=== PATIENT | female | born 1945 | race Caucasian/White ===

== ENCOUNTER 2016-12-07 12:22 | Emergency (ER) | payer OTHER ==
[~2016-12-07] VITALS: Ht 170.2 cm; Wt 72.7 kg
[~2016-12-07 12:22] MED LIST: ASPEC81 PO; ATOR80TA PO; GLCSR500 PO; GLIP-197 PO; HYDCR1CL EXT; LEVO125T7 PO; LISI-461 PO; PRLSR20 PO; PROM25TA9 PO; SERT-234 PO; SITA100T3 PO; TRAM-10 PO; TRAZ50TA35 PO
[2016-12-07 12:28] VITALS: TEMP 37.2; Ht 170.2 cm; Wt 72.7 kg
[2016-12-07] MEDS ORDERED: LEVO125T72 PO (12:37)
[2016-12-07] MEDS ORDERED: METF-841 PO (12:37)
[2016-12-07] MEDS ORDERED: KETOROLAC TROMETHAMINE 30 MG/ML VIAL IV STA (12:39)
[2016-12-07] MEDS ORDERED: SODIUM CHLORIDE 0.9% 1000ML 500 ML IV STA (12:39)
[2016-12-07] MEDS ORDERED: ACETAMINOPHEN 500 MG TAB PO STA (12:44)
--- NOTE | 2016-12-07 12:53 | EMERGENCY ROOM VISIT NOTE ---
History Report prepared by [place]: Holley Gonzales Under the Supervision of: Dr. Duncan Cullen M.D. First contact with patient: 12:37 Chief Complaint: BACK PAIN Stated Complaint: BACK PAIN History of Present Illness The patient is a 71 year old female who presents to the Emergency Room with complaints of persistent left sided flank pain for the past 2 days. She was brought to the ED via EMS. She rates her discomfort as a 10/10 and notes movement worsens her pain. Tylenol provided minimal relief yesterday, but she has not taken anything for pain yet today. She denies any recent falls or injuries. She has never undergone surgery on her back and denies any personal history of kidney stones. She notes she does drink a lot of water and for the past 1 month, has experienced increased pressure in her bladder. She denies any dysuria or hematuria. She denies any recent fevers, nausea or vomiting. Source of History: patient Onset: 2 days [facility] Position: back (left sided flank) Symptom Intensity: 10/10 Timing: other (persistent) Modifying Factors (Worsening): movement Modifying Factors (Relieving): tylenol Associated Symptoms: + urinary symptoms (increased bladder pressure), No fevers, No nausea, No vomiting Note: The patient denies any hematuria or dysuria. Review of Systems See HPI for pertinent positives & negatives. A total of 10 systems reviewed and were otherwise negative. Past Medical & Surgical Medical Problems: (1) Benign hypertension (2) DM type 2 causing renal disease (3) Dyslipidemia (4) History of allergic asthma (5) Major depression (6) Papillary thyroid carcinoma (7) Patent foramen ovale (8) Syncope Surgical Problems: (1) H/O total shoulder replacement (2) H/O: hysterectomy (3) History of appendectomy (4) S/P thyroidectomy (5) S/p total knee replacement, bilateral Family History Diabetes mellitus MOTHER FH: CAD (coronary artery disease) FATHER Social History Smoking Status: Never Smoker Alcohol Use: none Drug Use: none Marital Status: Housing Status: lives alone Occupation Status: employed Current/Historical Medications Scheduled Aspirin (Aspirin EC Low Dose), 81 MG PO DAILY Atorvastatin Calcium (Lipitor), 80 MG PO DAILY Glipizide (Glipizide Er), 10 MG PO AMPM Levothyroxine Sodium (Synthroid), 125 MCG PO DAILY Lisinopril (Lisinopril), 10 MG PO DAILY Metformin HCl (Metformin HCl ER), 1,000 MG PO BIDM Omeprazole (Prilosec), 20 MG PO DAILY Sertraline (Zoloft), 150 MG PO DAILY Sitagliptin Phosphate (Januvia), 100 MG PO DAILY Scheduled PRN Hydrocortisone 1% (Hydrocortisone 1%), 1 APPLN EXT TID PRN for rash Promethazine Hcl (Phenergan), 25 MG PO Q6 PRN for Nausea Trazodone Hcl (Trazodone), 50-100 MG PO HS PRN for Sleep Allergies Coded Allergies: No Known Allergies (Verified , 12/07/16) Physical Exam Vital Signs Date Time Temp Pulse Resp B/P (MAP) Pulse Ox O2 Delivery O2 Flow Rate FiO2 12/07/16 16:09 54 18 159/55 96 Room Air 12/07/16 14:35 50 18 145/74 95 Room Air 12/07/16 12:28 37.2 53 18 161/54 99 Room Air Physical Exam GENERAL: Patient is in no acute distress. HEENT: No acute trauma, normocephalic atraumatic, mucous membranes moist, no nasal congestion, no scleral icterus. NECK: No stridor, no adenopathy, no meningismus, trachea is midline. LUNGS: Clear to auscultation bilaterally, no wheeze, no rhonchi, breath sounds equal. HEART: 2/6 systolic murmur with bradycardic rate, normal rhythm. ABDOMEN: Soft, tender primarily in the epigastric region, but mild diffuse tenderness also present, bowel sounds positive, no hernias, no peritonitis. EXTREMITIES: No cyanosis or edema, full range of motion of all the joints without pain or difficulty, no signs for acute trauma. BACK: Pain in the left flank and left lower back with movement and palpation, no rash. NEUROLOGIC: Oriented x 3, no acute motor or sensory deficits, no focal weakness. SKIN: No rash, no jaundice, no diaphoresis. Medical Decision & Procedures ER Provider Diagnostic Interpretation: Radiology results as stated below per my review and radiologist interpretation: LUMBAR SPINE CT CT DOSE: HISTORY: Pain reformat abd/pelvis ct TECHNIQUE: Multiaxial CT images of the lumbar spine were performed and reformatted in the sagittal and coronal plane without the use of contrast. COMPARISON: 05/29/2016 FINDINGS: Vertebral bodies stature is unremarkable throughout. There is significant degenerative vertebral this changes L5-S1. Vacuum disc is present. Based on the sagittal reformatted images is study is similar as compared to the prior exam. Posterior disc herniation L5-S1 with partial peripheral calcification and or osteophytic reaction is unchanged. Similar but less prominent findings are seen with multifactorial narrowing of the spinal canal at L4-L5. The remaining disc space levels show no major compromise the spinal canal. There is slight disc bulges at all additional levels with minimal posterior osteophytic reaction. IMPRESSION: 1. Severe degenerative intervertebral this changes throughout with no major change compared to the prior study of 2016. 2. Narrowing of the spinal canal at L5-S1 and to a lesser extent L4-L5 similar to the prior study. 3. No evidence for new interval or progressive process as compared to the prior exam. Electronically signed by: Carmelo Kwong M.D. 12/07/2016 1:[address] OF THE ABDOMEN AND PELVIS WITHOUT CONTRAST, STONE PROTOCOL CLINICAL HISTORY: Left flank pain and hematuria. COMPARISON STUDY: CT of the abdomen April 22, 2015. TECHNIQUE: Helical axial images of the abdomen and pelvis were obtained without IV or oral contrast according to renal stone protocol. FINDINGS: No renal, ureteral or bladder calculi are present. There is no hydronephrosis or hydroureter. Unenhanced images of liver, spleen, adrenal glands and pancreas are normal. There is no evidence for a bowel obstruction. There are colonic diverticula without evidence for acute diverticulitis. The appendix is normal. There is no abscess or lymphadenopathy. The lumbar spine will be reported separately. IMPRESSION: 1. No urinary calculi or hydronephrosis. 2. No acute process within the abdomen or pelvis on unenhanced exam. Electronically signed by: Anders Reyna M.D. 12/07/2016 1:38 PM Laboratory Results 12/07/16 13:05 Red Blood Count 4.68, Mean Corpuscular Volume 82.9, Mean Corpuscular Hemoglobin 27.1, Mean Corpuscular Hemoglobin Concent 32.7, Mean Platelet Volume 10.4, Neutrophils (%) (Auto) 71.4, Lymphocytes (%) (Auto) 19.6, Monocytes (%) (Auto) 7.5, Eosinophils (%) (Auto) 0.8, Basophils (%) (Auto) 0.5, Neutrophils # (Auto) 4.56, Lymphocytes # (Auto) 1.25, Monocytes # (Auto) 0.48, Eosinophils # (Auto) 0.05, Basophils # (Auto) 0.03 12/07/16 13:05 Test 12/07/16 12:40 12/07/16 13:05 12/07/16 17:05 Urine Color YELLOW Urine Appearance CLEAR (CLEAR) Urine pH 5.0 (4.5-7.5) Urine Specific [place] 1.038 (1.000-1.030) Urine Protein NEG (NEG) Urine Glucose (UA) 3+ (NEG) Urine Ketones NEG (NEG) Urine Occult Blood NEG (NEG) Urine Nitrite NEG (NEG) Urine Bilirubin NEG (NEG) Urine Urobilinogen NEG (NEG) Urine Leukocyte Esterase NEG (NEG) White Blood Count 6.38 K/uL (4.8-10.8) Red Blood Count 4.68 M/uL (4.2-5.4) Hemoglobin 12.7 g/dL (12.0-16.0) Hematocrit 38.8 % (37-47) Mean Corpuscular Volume 82.9 fL (80-100) Mean Corpuscular Hemoglobin 27.1 pg (25-34) Mean Corpuscular Hemoglobin Concent 32.7 g/dl (32-36) Platelet Count 198 K/uL (130-400) Mean Platelet Volume 10.4 fL (7.4-10.4) Neutrophils (%) (Auto) 71.4 % Lymphocytes (%) (Auto) 19.6 % Monocytes (%) (Auto) 7.5 % Eosinophils (%) (Auto) 0.8 % Basophils (%) (Auto) 0.5 % Neutrophils # (Auto) 4.56 K/uL (1.4-6.5) Lymphocytes # (Auto) 1.25 K/uL (1.2-3.4) Monocytes # (Auto) 0.48 K/uL (0.11-0.59) Eosinophils # (Auto) 0.05 K/uL (0-0.5) Basophils # (Auto) 0.03 K/uL (0-0.2) RDW Standard Deviation 42.9 fL (36.4-46.3) RDW Coefficient of Variation 14.2 % (11.5-14.5) Immature Granulocyte % (Auto) 0.2 % Immature Granulocyte # (Auto) 0.01 K/uL (0.00-0.02) Anion Gap 11.0 mmol/L (3-11) Est Creatinine Clear Calc Drug Dose 38.6 ml/min Estimated GFR () 47.8 Estimated GFR (Non- 41.2 BUN/Creatinine Ratio 8.7 (10-20) Calcium Level 9.3 mg/dl (8.5-10.1) Lipase 260 U/L (73-393) Beta-Hydroxybutyric Acid 1.55 mg/dL (0.2-2.81) Bedside Glucose 216 mg/dl (70-90) Laboratory results reviewed by me. Medications Administered Medications (Trade) Dose Ordered Sig/Adin Route Start Time Stop Time Status Last Admin Dose Admin Sodium Chloride 500 ml @ 999 mls/hr Q31M STAT IV 12/07/16 12:39 12/07/16 13:09 DC 12/07/16 12:39 999 MLS/HR Ketorolac Tromethamine (Toradol Inj) 30 mg NOW STAT IV 12/07/16 12:39 12/07/16 12:41 DC 12/07/16 13:09 30 MG Acetaminophen (Tylenol Tab) 1,000 mg NOW STAT PO 12/07/16 12:44 12/07/16 12:45 DC 12/07/16 12:44 1,000 MG Insulin Human Regular (novoLIN-R U-100 PER UNIT) 10 units NOW STAT IV 12/07/16 13:56 12/07/16 13:57 DC 12/07/16 13:56 10 UNITS Sodium Chloride 500 ml @ 999 mls/hr Q31M STAT IV 12/07/16 14:54 12/07/16 15:24 DC 12/07/16 14:54 999 MLS/HR Insulin Human Regular (novoLIN-R U-100 PER UNIT) 10 units NOW STAT IV 12/07/16 15:14 12/07/16 15:15 DC 12/07/16 15:14 10 UNITS Sodium Chloride 500 ml @ 999 mls/hr Q31M STAT IV 12/07/16 16:12 12/07/16 16:42 DC 12/07/16 16:21 999 MLS/HR Insulin Human Regular (novoLIN-R U-100 PER UNIT) 10 units NOW STAT IV 12/07/16 16:12 12/07/16 16:14 DC 12/07/16 16:19 10 UNITS ED Course 1242: The patient was evaluated in room B7. A complete history and physical exam was performed. 1239: Toradol 30 mg IV, NSS 500 ml @ 999 mls/hr IV. 1244: Acetaminophen 1000 mg PO. 1356: Novolin-R U-100 per unit, 10 units IV. 1452: I reevaluated the patient. She is feeling better but her BSG is elevated. 1454: NSS 500 ml @ 999 mls/hr IV. 1514: Novolin-R U-100 per unit, 10 units IV. 1612: Novolin-R U-100 per unit, 10 units IV, NSS 500 ml @ 999 mls/hr IV. 1710: I reevaluated the patient. She is feeling better. I discussed her results and discharge instructions and she verbalized complete understanding and agreement. Medical Decision Medication Reconciliation: I attest that I have personally reviewed the patient' s current medication list. Blood Pressure Screening: Patient was found to have a mildly elevated blood pressure and will be referred to her primary care doctor's office for further evaluation. The differential diagnoses considered include renal colic, shingles, musculoskeletal pain, nerve impingement, fracture, renal failure, pyelonephritis , UTI and pancreatitis. There is no leukocytosis or concerning anemia. Blood sugar was in the 600 range. No kidney failure. Urinalysis showed glucose, no infection.. No evidence for pancreatitis. Lumbar spine CT showed arthritis and some spinal canal narrowing, no change compared to previous studies. No fracture seen. Abdominal and pelvis CT showed no acute process, there was no evidence for any ureteral stone or for diverticulitis. On exam, the patient was not febrile or toxic. Her left back and flank pain worsened with any movement and with palpation. The patient was given oral Tylenol, IV Toradol. She received IV saline and IV insulin. She required a few doses of insulin IV and a few boluses of IV saline. Her blood sugar is now in the 200 range. The patient feels improved and does not want to stay in the hospital. She feels comfortable with discharge. I have encouraged her to see her doctor in a few days for a blood pressure and glucose recheck. The pain in the lower back and left flank seems musculoskeletal. Massage, heat, Tylenol were suggested. If she notices a rash, she can be re-seen in the ER or by her doctor's office. Impression Primary Impression: Left flank pain Additional Impressions: Hyperglycemia Lower back pain Scribe Attestation The scribe's documentation has been prepared under my direction and personally reviewed by me in its entirety. I confirm that the note above accurately reflects all work, treatment, procedures, and medical decision making performed by me. Departure Information Dispostion Home / Self-Care Referrals Carmelo Cole M.D. (PCP) Patient Instructions My [facility] Additional Instructions heat may help the back tylenol for pain massage could be helpful watch for a shingles rash as we discussed see ayush romero in a few days for a sugar recheck and blood pressure recheck return if worsening Problem Qualifiers
[2016-12-07 13:06] LABS: URINE APPEARANCE CLEAR (CLEAR); URINE BILIRUBIN NEG (NEG); URINE COLOR YELLOW; URINE NITRITE NEG (NEG); URINE SPECIFIC GRAVITY 1.038 (1.000-1.030); UROBILINOGEN NEG (NEG); ZZURINE CULT IF INDIC CATH NO
[2016-12-07 13:19] LABS: MANUAL MICROSCOPIC REQUIRED? NO; REVIEW REQ? NO
[2016-12-07 13:29] LABS: BASO % 0.5 %; BASO ABS # 0.03 K/uL (0-0.2); COMPLETE YES; EOS % 0.8 %; HEMATOCRIT 38.8 % (37-47); IG% 0.2 %; LYMPH % 19.6 %; LYMPH ABS # 1.25 K/uL (1.2-3.4); MEAN CELL VOLUME 82.9 fL (80-100); MEAN CORPUSCULAR HEMOGLOBIN 27.1 pg (25-34); MEAN CORPUSCULAR HGB CONC 32.7 g/dl (32-36); MEAN PLATELET VOLUME 10.4 fL (7.4-10.4); MONO % 7.5 %; NEUT % 71.4 %; PLATELET COUNT 198 K/uL (130-400); RED BLOOD COUNT 4.68 M/uL (4.2-5.4); WHITE BLOOD COUNT 6.38 K/uL (4.8-10.8)
--- NOTE | 2016-12-07 13:39 | DIAGNOSTIC IMAGING REPORT ---
LUMBAR SPINE CT CT DOSE: HISTORY: Pain reformat abd/pelvis ct TECHNIQUE: Multiaxial CT images of the lumbar spine were performed and reformatted in the sagittal and coronal plane without the use of contrast. COMPARISON: 05/29/2016 FINDINGS: Vertebral bodies stature is unremarkable throughout. There is significant degenerative vertebral this changes L5-S1. Vacuum disc is present. Based on the sagittal reformatted images is study is similar as compared to the prior exam. Posterior disc herniation L5-S1 with partial peripheral calcification and or osteophytic reaction is unchanged. Similar but less prominent findings are seen with multifactorial narrowing of the spinal canal at L4-L5. The remaining disc space levels show no major compromise the spinal canal. There is slight disc bulges at all additional levels with minimal posterior osteophytic reaction. IMPRESSION: 1. Severe degenerative intervertebral this changes throughout with no major change compared to the prior study of 2015. 2. Narrowing of the spinal canal at L5-S1 and to a lesser extent L4-L5 similar to the prior study. 3. No evidence for new interval or progressive process as compared to the prior exam. Electronically signed by: Carmelo Kwong M.D. 12/07/2016 1:38 PM Dictated Date/Time: 12/07/2016 1:34 PM
--- NOTE | 2016-12-07 13:39 | DIAGNOSTIC IMAGING REPORT ---
CT OF THE ABDOMEN AND PELVIS WITHOUT CONTRAST, STONE PROTOCOL CLINICAL HISTORY: Left flank pain and hematuria. COMPARISON STUDY: CT of the abdomen April 22, 2015. TECHNIQUE: Helical axial images of the abdomen and pelvis were obtained without IV or oral contrast according to renal stone protocol. FINDINGS: No renal, ureteral or bladder calculi are present. There is no hydronephrosis or hydroureter. Unenhanced images of liver, spleen, adrenal glands and pancreas are normal. There is no evidence for a bowel obstruction. There are colonic diverticula without evidence for acute diverticulitis. The appendix is normal. There is no abscess or lymphadenopathy. The lumbar spine will be reported separately. IMPRESSION: 1. No urinary calculi or hydronephrosis. 2. No acute process within the abdomen or pelvis on unenhanced exam. Electronically signed by: Anders Reyna M.D. 12/07/2016 1:38 PM Dictated Date/Time: 12/07/2016 1:30 PM
[2016-12-07 13:54] LABS: BUN/CREATININE RATIO 8.7 (10-20); CREATININE 1.3 mg/dl (0.60-1.20); POTASSIUM 3.6 mmol/L (3.5-5.1)
[2016-12-07] MEDS ORDERED: NovoLIN-R INSULIN PER UNIT CHARGE IV STA ×3 (13:56→16:12)
[2016-12-07 14:13] LABS: BETA-HYDROXYBUTYRATE 1.55 mg/dL (0.2-2.81)
[2016-12-07] MEDS ORDERED: SODIUM CHLORIDE 0.9% 500ML 500 ML IV STA ×2 (14:54→16:12)
[2016-12-07 17:06] LABS: CALCIUM 9.3 mg/dl (8.5-10.1)
[2016-12-07 19:24] VITALS: BP 159/56; PULSE 63; O2SAT 95
[2017-01-16] MEDS ORDERED: INSDGIPEN SC (13:13)
== END 2016-12-07 19:24 | disposition home or self-care (01) ==
LOC: EDBD 12:22 → C.EDB 12:23
DX: R10.9 Unspecified abdominal pain (principal); E11.65 Type 2 diabetes mellitus with hyperglycemia; M54.5 Low back pain; I10 Essential (primary) hypertension; E78.5 Hyperlipidemia, unspecified; F32.9 Major depressive disorder, single episode, unspecified; Z85.850 Personal history of malignant neoplasm of thyroid; Z83.3 Family history of diabetes mellitus; Z82.49 Family history of ischemic heart disease and other diseases of the circulatory system; Z79.82 Long term (current) use of aspirin; Z79.899 Other long term (current) drug therapy

== ENCOUNTER 2017-01-14 09:07 | Inpatient (IN) | payer OTHER ==
[~2017-01-14] VITALS: Ht 167.6 cm; Wt 66.1 kg
[~2017-01-14 09:07] MED LIST changes: -GLCSR500 PO; -LEVO125T7 PO; +LEVO125T72 PO; +METF-841 PO; -TRAM-10 PO
[2017-01-14] MEDS ORDERED: ASPIRIN 81 MG CHEW PO STA (09:35)
--- NOTE | 2017-01-14 09:56 | DIAGNOSTIC IMAGING REPORT ---
CHEST ONE VIEW PORTABLE CLINICAL HISTORY: chest pain dyspnea COMPARISON STUDY: 04/22/2015 FINDINGS: The bones soft tissues and hemidiaphragms are normal. The cardiomediastinal silhouette is normal. The lungs are clear. The pulmonary vasculature is normal. IMPRESSION: Negative chest. The above report was generated using voice recognition software. It may contain grammatical, syntax or spelling errors. Electronically signed by: Carmelo Kwong M.D. 01/14/2017 9:55 AM Dictated Date/Time: 01/14/2017 9:55 AM
--- NOTE | 2017-01-14 10:03 | EMERGENCY ROOM VISIT NOTE ---
History Report prepared by Cheryl: Cindi Babb Under the Supervision of: Dr. Anton Sue M.D. First contact with patient: 09:30 Chief Complaint: CHEST PAIN Stated Complaint: NERVOUS, HEADACHE, CHEST PAIN Nursing Triage Summary: Pt reports h/a, dizziness, substernal cp x 2 days. senior staff psychologist present states, "I stopped to check on her. Staff at [employer] where she works saw her pale and sweaty." History of Present Illness The patient is a 71 year old female who presents to the Emergency Room with complaints of constant substernal chest pain that started 3 weeks ago. The pain worsened over the last 2 days. She states that it feels like "someone is pushing on her chest." She states that last night her discomfort from the pain was an 8/10 in severity but currently it is only a 2-3/10 in severity. The patient participates in [employer] and she has a job at [employer]. The patient's men's golf coach is at bedside. Her men's golf coach states that when she got to [employer] this morning the staff informed her that the patient appeared pale and sweaty. The patient's men's golf coach checked on her around 0830 and she still appeared pale and sweaty. The patient proceeded working and as she was pushing a cart to the bathroom she stated that she needed to sit down. The patient sat down and told her men's golf coach that she needed to go to the ED. The patient drank half of a glass of orange juice before coming into the ED. The patient is also experiencing dizziness and shortness of breath. She states that she is urinating and moving her bowels without difficulty. The patient states that she has rheumatic fever when she was 6 but she denies any history of MIs or congestive heart failure. The patient did not take any medication for the pain and she did not take any aspirin this morning. The patient has diabetes. Source of History: patient, other (men's golf coach) Onset: 3 weeks ago Position: chest (substernal) Symptom Intensity: 8/10 last night, 2-3/10 currently Timing: constant, worsening Associated Symptoms: + SOB Note: dizziness, pallor, sweating Review of Systems All systems have been listed, reviewed, and are negative other than those previously mentioned. Please see Additional Medical History Sheet. Past Medical & Surgical Medical Problems: (1) Benign hypertension (2) Chest pain (3) DM type 2 causing renal disease (4) Dyslipidemia (5) History of allergic asthma (6) Hyperglycemia due to type 2 diabetes mellitus (7) Major depression (8) Papillary thyroid carcinoma (9) Patent foramen ovale (10) Syncope Surgical Problems: (1) H/O total shoulder replacement (2) H/O: hysterectomy (3) History of appendectomy (4) S/P thyroidectomy (5) S/p total knee replacement, bilateral Family History Diabetes mellitus MOTHER FH: CAD (coronary artery disease) FATHER Social History Smoking Status: Never Smoker Alcohol Use: none Drug Use: none Marital Status: Housing Status: lives alone Occupation Status: employed Current/Historical Medications Scheduled Aspirin (Aspirin EC Low Dose), 81 MG PO DAILY Atorvastatin Calcium (Lipitor), 80 MG PO DAILY Glipizide (Glipizide Er), 10 MG PO AMPM Levothyroxine Sodium (Synthroid), 125 MCG PO DAILY Lisinopril (Lisinopril), 10 MG PO DAILY Metformin HCl (Metformin HCl ER), 1,000 MG PO BIDM Omeprazole (Prilosec), 20 MG PO DAILY Sertraline (Zoloft), 150 MG PO DAILY Sitagliptin Phosphate (Januvia), 100 MG PO DAILY Scheduled PRN Hydrocortisone 1% (Hydrocortisone 1%), 1 APPLN EXT TID PRN for rash Promethazine Hcl (Phenergan), 25 MG PO Q6 PRN for Nausea Trazodone Hcl (Trazodone), 50-100 MG PO HS PRN for Sleep Allergies Coded Allergies: No Known Allergies (Verified , 12/07/16) Physical Exam Vital Signs Date Time Temp Pulse Resp B/P (MAP) Pulse Ox O2 Delivery O2 Flow Rate FiO2 01/14/17 12:05 53 16 169/76 100 Room Air 01/14/17 11:21 54 16 183/66 97 Room Air 01/14/17 09:59 62 18 166/62 99 Room Air 01/14/17 09:25 65 01/14/17 09:23 97 Room Air 01/14/17 09:21 97 Room Air 01/14/17 09:12 36.4 85 18 155/73 96 Room Air Physical Exam GENERAL: Patient appears to be in minimal distress. Patient awake, alert, oriented x 3. Patient follows commands. Patient does not appear toxic. Patient is adequately hydrated and well-nourished. SKIN: No erythema, pallor, cyanosis or rash HEENT: Normal head, pupils equal, reactive to light and accommodation. Ears normal. Oral cavity and posterior pharynx appear normal. Neck: Without adenopathy, no neck vein distention. LUNGS: Clear to auscultation. No wheezes, no rales, no rhonchi. HEART: Grade 2/6 systolic murmur. No gallops. No rubs ABDOMEN: No masses, no rebound, no hepatomegaly or splenomegaly. EXTREMITIES: No signs of trauma. No pedal or pretibial edema. No calf or thigh tenderness. NEUROLOGIC: Cranial nerves II-XII within normal limits. No gross motor sensory function deficits. Medical Decision & Procedures ER Provider Diagnostic Interpretation: Radiology results as stated below per my review and radiologist interpretation: CHEST ONE VIEW PORTABLE FINDINGS: The bones soft tissues and hemidiaphragms are normal. The cardiomediastinal silhouette is normal. The lungs are clear. The pulmonary vasculature is normal. IMPRESSION: Negative chest. The above report was generated using voice recognition software. It may contain grammatical, syntax or spelling errors. Electronically signed by: Carmelo Kwong M.D. 01/14/2017 9:55 AM Dictated Date/Time: 01/14/2017 9:55 AM Laboratory Results 01/14/17 09:44 Test 01/14/17 09:44 01/14/17 11:29 Red Blood Count 4.82 M/uL (4.2-5.4) Mean Corpuscular Volume 81.7 fL (80-100) Mean Corpuscular Hemoglobin 27.4 pg (25-34) Mean Corpuscular Hemoglobin Concent 33.5 g/dl (32-36) Beta-Hydroxybutyric Acid 8.47 mg/dL (0.2-2.81) Bedside Troponin I < 0.030 ng/ml (0-0.045) Laboratory results as stated above per my review. Medications Administered Medications (Trade) Dose Ordered Sig/Adin Route Start Time Stop Time Status Last Admin Dose Admin Aspirin (Aspirin Chew) 325 mg NOW STAT PO 01/14/17 09:35 01/14/17 09:37 DC 01/14/17 10:18 324 MG Insulin Human Regular (novoLIN-R U-100 PER UNIT) 10 units NOW STAT IV 01/14/17 10:59 01/14/17 11:02 DC 01/14/17 11:10 10 UNITS Sodium Chloride 2,000 ml @ 1,000 mls/hr Q2H ONCE IV 01/14/17 11:00 01/14/17 12:59 DC 01/14/17 11:10 1,000 MLS/HR ECG Indication: chest pain Rate (beats per minute): 67 Rhythm: normal sinus Findings: nonspecific-ST abn Comparison ECG Date: 05/29/2016 Change: slightly more St depressions in V4, V5, and V6 ED Course 0930: Past medical records reviewed. The patient was evaluated in room A2. A complete history and physical examination was performed. 0935: Ordered Aspirin 325 mg PO 1033: The nurse informed me that the patient's serum glucose was recorded to be 848 by the machine. 1042: The nurse performed a POC BSG at bedside to ensure the serum reading is correct. 1059: Ordered Insulin Human Regular 10 units IV 1100: Ordered Sodium Chloride 2000 ml @ 1000 mls/hr IV 1106: The patient's BSG on the bedside monitor was too high to count which is consistent with the serum level. 1132: Upon reevaluation, the patient is resting comfortably.I discussed today's findings with her. She verbalized agreement of the treatment plan. The patient will be evaluated for further management. 1139: [facility] the [facility] The patient will be evaluated for further management. Medical Decision I considered multiple diagnoses including myocardial infarction, chest wall pain , pericarditis, myocarditis, aortic emergencies, pulmonary embolism, congestive heart failure, GI causes, and other significant cardiopulmonary disorders. The patient arrived here complaining of precordial chest pain which is been bothering her for greater than 1 month. She states that the pain is worse with past 2 days. The patient is diabetic but takes only oral agents. Multiple labs , EKG and imaging were all obtained. The patient has slight ST depressions in V4-V6. Troponin is not elevated. Blood sugar came back markedly elevated. Patient was started on IV fluids and insulin. I discussed care with the patient , the gift shop clerk and the hospitalist. The patient will need further hydration and insulin. Additional cardiopulmonary work up will be required. Medication Reconcilliation Current Medication List: was personally reviewed by me Blood Pressure Screening Patient's blood pressure: Elevated blood pressure Blood pressure disposition: Referred to PCP Consults Time Called: 1138 Consulting Physician: Dr. Verónica Sparks Returned Call: 1139 Discussed the patient's case with Dr. Sanches of the [facility] Hospitalist Service. The patient will be evaluated for further management. Impression Primary Impression: DKA (diabetic ketoacidoses) Additional Impressions: Precordial chest pain Hyponatremia Scribe Attestation The scribe's documentation has been prepared under my direction and personally reviewed by me in its entirety. I confirm that the note above accurately reflects all work, treatment, procedures, and medical decision making performed by me. Departure Information Dispostion Being Evaluated By Hospitalist Referrals Carmelo Cole M.D. (PCP) Patient Instructions My [facility] Problem Qualifiers Primary Impression: DKA (diabetic ketoacidoses) Diabetes mellitus type: type 2 Diabetes mellitus complication detail: without coma Qualified Codes: E13.10 - Other specified diabetes mellitus with ketoacidosis without coma
[2017-01-14 10:29] LABS: BLOOD UREA NITROGEN 24 mg/dl (7-18); BUN/CREATININE RATIO 15.2 (10-20); CALCIUM 9.3 mg/dl (8.5-10.1); CARBON DIOXIDE 28 mmol/L (21-32); CHLORIDE 88 mmol/L (98-107); GLUCOSE 848 mg/dl (70-99); SODIUM 126 mmol/L (136-145)
[2017-01-14 10:32] LABS: HEMATOCRIT 39.4 % (37-47); MEAN CELL VOLUME 81.7 fL (80-100); MEAN CORPUSCULAR HEMOGLOBIN 27.4 pg (25-34); MEAN CORPUSCULAR HGB CONC 33.5 g/dl (32-36); PLATELET COUNT 200 K/uL (130-400); RED BLOOD COUNT 4.82 M/uL (4.2-5.4); WHITE BLOOD COUNT 5.24 K/uL (4.8-10.8)
[2017-01-14 10:45] LABS: BETA-HYDROXYBUTYRATE 8.47 mg/dL (0.2-2.81)
[2017-01-14] MEDS ORDERED: IBUP-103 PO (10:54)
[2017-01-14] MEDS ORDERED: NovoLIN-R INSULIN PER UNIT CHARGE IV STA (10:59)
[2017-01-14] MEDS ORDERED: SODIUM CHLORIDE 0.9% 1000ML 2,000 ML IV ONE (11:00)
[2017-01-14] MEDS ORDERED: GLUCOSE 10 TABS/TUBE PO PRN ×2 (12:45→13:15)
[2017-01-14] MEDS ORDERED: GLUCAGON FOR INJ 1 MG VIAL SQ PRN ×2 (12:45→13:15)
[2017-01-14] MEDS ORDERED: SODIUM CHLORIDE 0.9% 1000ML 1,000 ML IV SCH (12:45)
[2017-01-14] MEDS ORDERED: GLUCOSE 40% GEL 15 GM TUBE PO PRN ×2 (12:45→13:15)
[2017-01-14] MEDS ORDERED: DEXTROSE 50% 50 ML SYR IV PRN ×2 (12:45→13:15)
[2017-01-14] MEDS ORDERED: PROMETHAZINE HCL 25 MG TAB PO PRN (13:00)
[2017-01-14] MEDS ORDERED: PHARMACY GLYCEMIC MGMT CONSULT PRN (13:26)
[2017-01-14 13:30] VITALS: BP 161/72; PULSE 54; TEMP 37.2; O2SAT 99; BMI 23.2
--- NOTE | 2017-01-14 13:43 | History and Physical ---
History & Physical Date & Time of Service: Jan 14, 2017 at 13:13 Chief Complaint: Nervous, Headache, Chest Pain Primary Care Physician: Carmelo Cole M.D. History of Present Illness Source: patient, family, clinic records, hospital records 71 yo Female with PMH DM type 2, Hypothyroidism, HTN, Major depression was brought to the ER for from work for Chest pain. Pt said that she has been having pressure like chest pain for the last 3 weeks. She said that in the last 2 days the chest pain got worst. She said that she was at work today feeling weak, dizzy, SOB and pale. Pt described the chest pain like pressure like and feels like someone sitting on her chest, non radiating, worsening when she lies down and alleviated when sitting up, grade 3/10. Pt is very active. she lives alone and does not know her medications. she said that she is only taking 1 med for her DM when she has 3 meds for DM on her med list. As per niece pt has someone that comes once a week to arrange her meds for her and niece said that sometimes take wrong med. She does not check her BS. Her niece said that few months ago she passed out because of low blood sugar. Pt glucose on BMP was 845 today. Currently pt said that she is feeling a little better. Denies any SOB, palpitation, numbness, urinary symptoms, diarrhea and nausea. 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 Status: Chronic (2) H/O: hysterectomy Status: Resolved (3) History of appendectomy Status: Resolved (4) S/P thyroidectomy Status: Chronic (5) S/p total knee replacement, bilateral Status: Chronic Family History Diabetes mellitus MOTHER FH: CAD (coronary artery disease) FATHER Social History Smoking Status: Never Smoker Drug Use: none Marital Status: Housing status: lives alone, other Occupational Status: employed Immunizations History of Influenza Vaccine: Yes Influenza Vaccine Date: Apr 22, 2012 History of Tetanus Vaccine?: Yes Tetanus Immunization Date: Feb 20, 2007 History of Pneumococcal: No Pneumococcal Date: Apr 27, 2008 History of Hepatitis B Vaccine: No Multi-Drug Resistant Organisms History of MDRO: No Allergies Coded Allergies: No Known Allergies (Verified , 12/07/16) Home Medications Scheduled Aspirin (Aspirin EC Low Dose), 81 MG PO DAILY Atorvastatin Calcium (Lipitor), 80 MG PO DAILY Glipizide (Glipizide Er), 10 MG PO AMPM Levothyroxine Sodium (Synthroid), 125 MCG PO DAILY Lisinopril (Lisinopril), 10 MG PO DAILY Metformin HCl (Metformin HCl ER), 1,000 MG PO BIDM Omeprazole (Prilosec), 20 MG PO DAILY Sertraline (Zoloft), 150 MG PO DAILY Sitagliptin Phosphate (Januvia), 100 MG PO DAILY Scheduled PRN Hydrocortisone 1% (Hydrocortisone 1%), 1 APPLN EXT TID PRN for rash Promethazine Hcl (Phenergan), 25 MG PO Q6 PRN for Nausea Trazodone Hcl (Trazodone), 50-100 MG PO HS PRN for Sleep Review of Systems Constitutional: + sweats, No fever, No chills Eyes: No worsening of vision, No redness ENT: No hearing loss, No sore throat Respiratory: No cough, No sputum, No wheezing Cardiovascular: + chest pain, No claudication, No palpitations Abdomen: No pain, No nausea, No vomiting Musculoskeletal: + joint pain, No calf pain Genitourinary - Female: No dysuria, No hematuria Neurologic: + numbness/tingling Psychiatric: No substance abuse Endocrine: No excessive thirst Hematologic / Lymphatic: No night sweats Integumentary: No rash, No itch Physical Exam Vital Signs Date Time Temp Pulse Resp B/P (MAP) Pulse Ox O2 Delivery O2 Flow Rate FiO2 01/14/17 12:46 53 16 159/68 98 Room Air 01/14/17 12:42 59 01/14/17 12:05 53 16 169/76 100 Room Air 01/14/17 11:21 54 16 183/66 97 Room Air 01/14/17 09:59 62 18 166/62 99 Room Air 01/14/17 09:25 65 01/14/17 09:23 97 Room Air 01/14/17 09:21 97 Room Air 01/14/17 09:12 36.4 85 18 155/73 96 Room Air General Appearance: WD/WN, no apparent distress Head: normocephalic, atraumatic Eyes: PERRL, EOMI ENT: normal ENT inspection Neck: no JVD Respiratory/Chest: no respiratory distress, no accessory muscle use Cardiovascular: regular rate, rhythm, no JVD, + systolic murmur Abdomen/GI: normal bowel sounds, non tender, soft Back: no CVA tenderness Extremities/Musculoskelatal: no calf tenderness Neurologic/Psych: senior marketing coordinator II-XII nml as tested, alert, oriented x 3 Skin: warm/dry, no rash Diagnostics Laboratory Results Results Past 24 Hours Test 01/14/17 09:44 01/14/17 10:02 01/14/17 10:46 01/14/17 11:29 Range/Units White Blood Count 5.24 4.8-10.8 K/uL Red Blood Count 4.82 4.2-5.4 M/uL Hemoglobin 13.2 12.0-16.0 g/dL Hematocrit 39.4 37-47 % Mean Corpuscular Volume 81.7 80-100 fL Mean Corpuscular Hemoglobin 27.4 25-34 pg Mean Corpuscular Hemoglobin Concent 33.5 32-36 g/dl Platelet Count 200 130-400 K/uL Sodium Level 126 136-145 mmol/L Potassium Level 4.0 3.5-5.1 mmol/L Chloride Level 88 98-107 mmol/L Carbon Dioxide Level 28 21-32 mmol/L Anion Gap 10.0 3-11 mmol/L Blood Urea Nitrogen 24 7-18 mg/dl Creatinine 1.60 0.60-1.20 mg/dl Estimated GFR () 37.2 Estimated GFR (Non- 32.1 BUN/Creatinine Ratio 15.2 10-20 Random Glucose 848 70-99 mg/dl Calcium Level 9.3 8.5-10.1 mg/dl Beta-Hydroxybutyric Acid 8.47 0.2-2.81 mg/dL Bedside Troponin I < 0.030 < 0.030 0-0.045 ng/ml Bedside Glucose > 600 70-90 mg/dl Test 01/14/17 12:03 01/14/17 12:45 Range/Units Bedside Glucose 513 377 70-90 mg/dl Diagnostic Radiology CHEST ONE VIEW PORTABLE CLINICAL HISTORY: chest pain dyspnea COMPARISON STUDY: 04/22/2015 FINDINGS: The bones soft tissues and hemidiaphragms are normal. The cardiomediastinal silhouette is normal. The lungs are clear. The pulmonary vasculature is normal. IMPRESSION: Negative chest. The above report was generated using voice recognition software. It may contain grammatical, syntax or spelling errors. Impression Assessment and Plan Chest Pain Need to R/o ACS has significant risk factor such as DM, age, HTN and mother with HI at age 70 1st set troponin negative EKG shown non specific ST changes in V4 and V6 She had a nuclear stress test done back 05/08 that was negative Will get a resting echo follow CM repeat EKG in am Continue asa and statin Cardiology consult Continue monitor pt in tele DM type 2 Last hba1c 8.6 on 10/16 Uncontrolled Elevated Beta-hydroxybutyric acid check hba1c in am BS on admission 848 Check BMP at 5pm Only taking one BS med has previous hx of hypoglycemia where she passed out Might not be a good candidate for insulin upon discharge if she will be self administered the insulin hold oral DM med for now Insulin coverage pharmacy consult MATI creatine baseline around 1 creatine back in 10/08 was 1.3 Creatine on admission 1.6 Will hold lisinopril, Maxzide and metformin for now received IVF Avoid nephrotoxic agent Continue monitor BMP HTN BP elevated Lisinopril and Maxzide on hold Will start on prn hydralazine continue monitor BP Hyponatremia Due to elevated glucose corrected Na 133.5 Hypothyroidism check TSH in am continue levothyroxine DVT px on heparin subq Code Status Full code Disposition Will consult case management for placement Level of Care Telemetry Resuscitation Status FULL RESUSCITATION VTE Prophylaxis VTE Risk Assessment Done? Y/N: Yes Risk Level: Moderate Given or contraindicated: Unfractionated heparin SQ
--- NOTE | 2017-01-14 14:27 | Pharmacy Progress Note ---
Glycemic Control Intl Consult Date of Service Jan 14, 2017. Scope Glycemic Pharmacist consulted by Dr Sanches on 01/14/17 for glycemic control and to write orders per [facility] inpatient glycemic control protocol Objective Weight (Kilograms): 69.800 Accuchecks BSG (last 24hrs): Test 01/14/17 09:44 01/14/17 10:46 01/14/17 12:03 01/14/17 12:45 Random Glucose 848 mg/dl (70-99) Bedside Glucose > 600 mg/dl (70-90) 513 mg/dl (70-90) 377 mg/dl (70-90) Laboratory Data (last 24hrs) Test 01/14/17 09:44 Anion Gap 10.0 mmol/L BUN/Creatinine Ratio 15.2 Blood Urea Nitrogen 24 mg/dl Creatinine 1.60 mg/dl Potassium Level 4.0 mmol/L Sodium Level 126 mmol/L White Blood Count 5.24 K/uL HbA1c 7.9% 05/29/16 Recent Pertinent Medications Outpatient Anti-diabetic Regimen: * Patient is unsure of home medications. She believes she only uses one medication for diabetes. Skills workers have reported patient has difficulty managing her home medications. The following meds are listed on her med rec: * Glipizide ER 10mg BID * Metformin 1gm PO BID * Januvia 100mg PO daily * A1c has not been checked since 05/2016 Assessment & Plan ASSESSMENT: * Patient presented to ER w/ c/o chest pain, SOB, diaphoresis and dizziness * Troponin negative x 2; EKG read as non-specific ST and T wave changes but no significant change from prior EKG; CXR reportedly negative as well * Patient was profoundly hyperglycemic. She has a h/o Type 2 DM, however she is not very knowledgeable about her medications and believes she only takes one medication for DM rather than the 3 listed on her med rec. * Admission labs: Glu 848, AG 10, Bicarb 28, BOHB 8.47, Na 126, calculated effective serum osmo ~299 * Patient appears to have pure hyperglycemia, mild hyperosmolar state without ketoacidosis. BSGs have dropped quickly with IV hydration (848-->377) * The patient did report to me that she did notice increased thirst and urination recently however could not quantify the duration. Providers notes reviewed and no notation of s/s dehydration noted. Patient reported she felt much improved when I spoke with her this afternoon after receiving 2L IVF's in the ER. * Will initiate SQ insulin regimen based upon weight and moderate stress given this is a mild case of HHS and not DKA which adequate fluid resuscitation often helps resolve * Will check A1c with next labs draw as last result greater than 3 months ago PLAN FOR INPATIENT GLYCEMIC CONTROL: * Lantus 9 units SQ BID * BSGs ACHS and at 0000 and 0400 overnight tonight, cover elevations with SQ Novolog * Correction factor 30 mg/dl/unit * Carb ratio 1 unit per 12 grams CHO consumed * Goal range Low 140 mg/dL - High 180 mg/dL to prevent overly quick correction of hyperglycemia * Please note that the plan above was derived based on current level of insulin resistance and hospital stress. These recommendations are appropriate for inpatient admission only. Plan of care upon discharge will need to be reassessed to avoid potential outpatient hypo/hyperglycemia. Thank you.
[2017-01-14] MEDS: INSULIN GLARGINE SOLOSTAR 100 UNITS/ML 3 ML PEN SC SCH ×2 (15:13→21:22)
[2017-01-14] MEDS: INSULIN ASPART 100 UNITS/ML 3 ML PEN SC SCH ×3 (15:20→21:39)
[2017-01-14 15:30] VITALS: BP 114/48; PULSE 63; TEMP 36.8; O2SAT 98
[2017-01-14 15:43] LABS: PARTIAL THROMBOPLASTIN RATIO 0.9; PROTHROMBIN TIME (PATIENT) 10.6 SECONDS (9.0-12.0)
[2017-01-14 16:00] VITALS: BP 114/48; PULSE 63; TEMP 36.8; O2SAT 98
--- NOTE | 2017-01-14 16:01 | ECHOCARDIOGRAM REPORT ---
*NOTICE TO RECEIVING CONSTITUTION PARTY AGENCY This information is strictly Confidential and protected under [place] law. [place] law prohibits you from making any further disclosure of this information unless further disclosure is expressly permitted by the written consent of the person to whom it pertains or is authorized by law. A general authorization for the release of medical or other information is not sufficient for this purpose. Hospital accepts no responsibility if the information is made available to any other person, INCLUDING THE PATIENT. Interpretation Summary * Name: YOANNA AMOR Study Date: 01/14/2017 02:35 PM BP: 161/72 mmHg * Patient Location: [facility] HR: 54 * : 1945 (M/d/yyyy) Gender: Female Height: 66 in * Age: 71 yrs Ethnicity: [place] Weight: 153 lb * Ordering Physician: Ursula Sanches * Referring Physician: Self, Referred * Performed By: Regine Nichole RCS * * Reason For Study: Chest Pain * BSA: 1.8 m2 * -- Conclusions -- * The left ventricle is normal in size. * There is mild concentric left ventricular hypertrophy. * The left ventricular wall motion is normal. * Left ventricular systolic function is normal. * Ejection Fraction = 60-65%. * Grade I diastolic dysfunction, (abnormal relaxation pattern). * Aortic valve sclerosis mild, without significant aortic valvular stenosis. Procedure Details * A complete two-dimensional transthoracic echocardiogram was performed (2D, M-mode, Doppler and color flow Doppler). Left Ventricle * The left ventricle is normal in size. * There is mild concentric left ventricular hypertrophy. * Left ventricular systolic function is normal. * Ejection Fraction = 60-65%. * The left ventricular wall motion is normal. Right Ventricle * The right ventricle is normal in size and function. Atria * The left atrial size is normal. * Right atrial size is normal. * No ASD detected; PFO is not assessed. Mitral Valve * The mitral valve anatomy is normal. * There is no mitral valve stenosis. * There is mild mitral regurgitation. Tricuspid Valve * The tricuspid valve anatomy is normal. * There is no tricuspid stenosis. * There is trace tricuspid regurgitation. Aortic Valve * The aortic valve is trileaflet. * Aortic valve sclerosis mild, without significant aortic valvular stenosis. * No hemodynamically significant valvular aortic stenosis. * No aortic regurgitation is present. Pulmonic Valve * The pulmonic valve is not well visualized. Great Vessels * The aortic root is normal size. Pericardium/Pleural * There is no pericardial effusion. Great Vessels * Normal inferior vena cava diameter and respiratory variation suggests normal central venous pressure. Left Ventricular Diastolic Function * Grade I diastolic dysfunction, (abnormal relaxation pattern). MMode 2D Measurements and Calculations IVSd 1.2 cm IVSs 1.4 cm LVIDd 4.6 cm LVIDs 3.2 cm LVPWd 1.2 cm LVPWs 1.4 cm IVS/LVPW 1.0 FS 30.0 % EDV(Teich) 95.8 ml ESV(Teich) 41.0 ml EF(Teich) 57.2 % EDV(cubed) 95.4 ml ESV(cubed) 32.8 ml EF(cubed) 65.6 % % IVS thick 12.7 % % LVPW thick 22.2 % LV mass(C)d 201.6 grams LV mass(C)dI 112.9 grams/m\S\2 LV mass(C)s 153.5 grams LV mass(C)sI 86.0 grams/m\S\2 CO(Teich) 2.8 l/min CI(Teich) 1.6 l/min/m\S\2 SV(Teich) 54.8 ml SI(Teich) 30.7 ml/m\S\2 CO(cubed) 3.2 l/min CI(cubed) 1.8 l/min/m\S\2 SV(cubed) 62.6 ml SI(cubed) 35.1 ml/m\S\2 Ao root diam 2.8 cm Ao root area 6.3 cm\S\2 ACS 1.5 cm LA dimension 3.8 cm asc Aorta Diam 2.7 cm LA/Ao 1.3 LVOT diam 1.8 cm LVOT area 2.5 cm\S\2 LVAd ap4 30.6 cm\S\2 LVLd ap4 8.3 cm EDV(MOD-sp4) 91.0 ml LVAs ap4 18.9 cm\S\2 LVLs ap4 7.0 cm ESV(MOD-sp4) 41.0 ml EF(MOD-sp4) 54.9 % LVAd ap2 23.0 cm\S\2 LVLd ap2 7.5 cm EDV(MOD-sp2) 58.0 ml LVAs ap2 13.9 cm\S\2 LVLs ap2 6.4 cm ESV(MOD-sp2) 24.0 ml EF(MOD-sp2) 58.6 % CO(MOD-sp4) 2.6 l/min CI(MOD-sp4) 1.4 l/min/m\S\2 SV(MOD-sp4) 50.0 ml SI(MOD-sp4) 28.0 ml/m\S\2 CO(MOD-sp2) 1.7 l/min CI(MOD-sp2) 0.97 l/min/m\S\2 SV(MOD-sp2) 34.0 ml SI(MOD-sp2) 19.0 ml/m\S\2 Doppler Measurements and Calculations MV E max genevieve 71.6 cm/sec MV A max genevieve 119.1 cm/sec MV E/A 0.60 MV P1/2t max genevieve 101.5 cm/sec MV P1/2t 99.6 msec MVA(P1/2t) 2.2 cm\S\2 MV dec slope 298.7 cm/sec\S\2 MV dec time 0.32 sec Ao V2 max 220.2 cm/sec Ao max PG 19.4 mmHg Ao max PG (full) 9.3 mmHg Ao V2 mean 135.7 cm/sec Ao mean PG 8.6 mmHg Ao mean PG (full) 3.8 mmHg Ao V2 VTI 47.3 cm REYNA(I,A) 1.9 cm\S\2 REYNA(I,D) 1.9 cm\S\2 REYNA(V,A) 1.8 cm\S\2 REYNA(V,D) 1.8 cm\S\2 LV V1 max PG 10.1 mmHg LV V1 mean PG 4.8 mmHg LV V1 max 159.1 cm/sec LV V1 mean 100.1 cm/sec LV V1 VTI 34.9 cm SV(Ao) 298.7 ml SI(Ao) 167.3 ml/m\S\2 SV(LVOT) 88.7 ml SI(LVOT) 49.7 ml/m\S\2 PA V2 max 84.6 cm/sec PA max PG 2.9 mmHg
[2017-01-14 16:13] LABS: ALB/GLOB RATIO 1.2 (0.9-2); ALKALINE PHOSPHATASE 116 U/L (45-117); ALT/SGPT 19 U/L (12-78); AST/SGOT 14 U/L (15-37); BLOOD UREA NITROGEN 18 mg/dl (7-18); BUN/CREATININE RATIO 17.7 (10-20); CALCIUM 8.3 mg/dl (8.5-10.1); CARBON DIOXIDE 28 mmol/L (21-32); CHLORIDE 97 mmol/L (98-107); GLUCOSE 351 mg/dl (70-99); POTASSIUM 3.1 mmol/L (3.5-5.1); SODIUM 135 mmol/L (136-145)
[2017-01-14 16:23] LABS: BETA-HYDROXYBUTYRATE 24.69 mg/dL (0.2-2.81)
[2017-01-14 18:10] LABS: BUN/CREATININE RATIO 11.4 (10-20); CREATININE 1.4 mg/dl (0.60-1.20); POTASSIUM 3.5 mmol/L (3.5-5.1)
[2017-01-14 18:29] LABS: BETA-HYDROXYBUTYRATE 7.64 mg/dL (0.2-2.81)
[2017-01-14 19:43] VITALS: BP 129/51; PULSE 55; TEMP 36.5; O2SAT 97
[2017-01-14] MEDS: HEPARIN SOD 5000 UNIT/0.5 ML CARP SQ SCH (21:21)
--- NOTE | 2017-01-14 21:38 | CARDIOLOGY CONSULTATION ---
DATE OF CONSULTATION: 01/14/2017 REFERRING: Dr. Sanches. PRIMARY CARE PHYSICIAN: Dr. Rothman.. INDICATIONS: Chest pressure pain. HISTORY OF PRESENT ILLNESS: The patient is a 71-year-old female whose history is notable for type 2 diabetes mellitus, orally controlled; hypertension; EKG with intermittent left bundle branch block by past records; history of mild intellectual disability, past documented patent foramen ovale. The patient presents now this admission, notes while at work today, felt somewhat weak and fatigued as well as signs of mild pressure sensation in the right side of her chest. She noted no tachy palpitations, noted no syncope or near syncope, but felt weak and was noted to be pale. Symptoms were ongoing. Symptoms were worse while lying down, not specifically exacerbated by activities. She presented to the Emergency Room where marked elevation in glucoses was observed. There is raised concern regarding patient's medication usage recently. Predominant reason for presentation was she was observed by supervisor in charge at work to be pale and sweaty. She denies recent fevers, chills. Notes no melena, hematochezia, dysuria or hematuria. Notes no bowel disturbances. Is uncertain regarding any of her medications. Notes no headache or visual changes. Notes no rash or arthritic complaint. She has been previously evaluated for chest discomfort with stress nuclear imaging due to complaints in April of 2015 with stress nuclear imaging negative at that time. She is referred now for further evaluation. ALLERGIES: None. MEDICATIONS: Per list were aspirin 81 mg per day, atorvastatin 80 mg per day, glipizide 5 mg twice per day, levothyroxine 125 mcg p.o. daily, lisinopril 10 mg p.o. daily, metformin 1000 mg b.i.d., omeprazole 20 mg p.o. daily, Phenergan p.r.n. nausea, Zoloft 150 mg p.o. daily, Januvia 100 mg p.o. daily, trazodone p.r.n. sleep. PAST SURGICAL HISTORY: Notable for past right shoulder replacement, hysterectomy, appendectomy, thyroidectomy and bilateral total knee replacements. 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 FAMILY HISTORY: Positive for coronary disease in mother and father. SOCIAL HISTORY: The patient lives independently. She works doing [employer] work for skills at the [employer]. She is a nonsmoker, nondrinker. PHYSICAL EXAMINATION: VITAL SIGNS: On presentation today, heart rate is 53, blood pressure is 159/68. There is occasional ventricular ectopy on telemetry. HEENT: Normocephalic, atraumatic. Nares without discharge. Throat was clear. NECK: Supple without thyromegaly or lymphadenopathy. There are no carotid bruits. LUNGS: Clear to auscultation. CARDIOVASCULAR: Regular with normal S1, S2. There is no S3 gallop. ABDOMEN: Soft, nontender. There is no palpable hepatosplenomegaly. There is no hepatojugular reflux. EXTREMITIES: Without cyanosis or clubbing. There is no peripheral edema. There are intact distal pulses with minimal tenderness to lower extremities. LABORATORY DATA: On presentation, initial glucose was 848. Point of care troponins x2 were less than 0.03. EKG on presentation revealed sinus rhythm, nonspecific ST segment changes, and nonspecific intraventricular conduction delay, no acute changes from prior studies. IMPRESSION: A 71-year-old female who presents with vague symptoms of pallor, weakness and shortness of breath, mild sensation of right chest discomfort, nonradiating by description with patient extremely poor historian. There appears to be some concerns regarding patient's usage and actual taking of current medical regimen per the niece. Blood sugars were substantially elevated on presentation today. Initial enzymes and EKGs do not reflect acute changes to suggest ischemia, and the patient currently is asymptomatic. PLAN: Will be to continue medications as ordered, resuming prehospital medications, while checking baseline laboratory studies. Echocardiogram will be reviewed from today. Serial enzymes have been ordered, and the patient will remain on telemetry given resting bradycardia and intermittent ventricular ectopy with conduction changes on EKGs current and in past. Depending on clinical course, further evaluation may be warranted. Time being, the patient will be maintained on telemetry and follow closely in hospital. Currently asymptomatic without overt evidence of ischemia.
[2017-01-14] MEDS: TRAZODONE HCL 50 MG TAB PO PRN (22:09)
[2017-01-15] VITALS (8 sets, daily range): BP systolic 124–157; BP diastolic 52–69; PULSE 48–60; TEMP 36.6–37; O2SAT 97–99; BMI 23.8
[2017-01-15] MEDS: INSULIN ASPART 100 UNITS/ML 3 ML PEN SC SCH ×6 (04:00→20:54)
[2017-01-15 06:26] LABS: HEMATOCRIT 36.5 % (37-47); MEAN CELL VOLUME 79.7 fL (80-100); MEAN CORPUSCULAR HEMOGLOBIN 25.3 pg (25-34); MEAN CORPUSCULAR HGB CONC 31.8 g/dl (32-36); MEAN PLATELET VOLUME 9.5 fL (7.4-10.4); PLATELET COUNT 189 K/uL (130-400); RED BLOOD COUNT 4.58 M/uL (4.2-5.4); WHITE BLOOD COUNT 5.08 K/uL (4.8-10.8)
[2017-01-15] MEDS: LEVOTHYROXINE 125 MCG TAB PO SCH (06:27)
[2017-01-15] MEDS: HEPARIN SOD 5000 UNIT/0.5 ML CARP SQ SCH ×3 (06:28→20:55)
--- NOTE | 2017-01-15 06:38 | Clinical Documentation Query ---
CLINICAL DOCUMENTATION QUERY 71 year old female who presents to the Emergency Room with complaints of constant substernal chest pain. She was found with random glucose of 848. In your clinical opinion is this patient being managed for: ( ) Type II diabetes with DKA evidenced by random glucose of 848 and Beta-Hydroxybutyric Acid level as high as 24.69 treated with IVP insulin, IV NSS bolus, and SSC SQ insulin. ( ) Other explanation of clinical findings (Please Explain) ( + ) Unable to determine (Please Define) ( ) Need to Discuss ( ) Not Agree No clear evidence of Ketoacidosis.Rather she has hyperosmolar satte The medical record reflects the following clinical findings, treatment, and risk factors. Clinical Indicators: As above. Sodium 126, BUN 24, Creatinine 1.60, GFR 32.1 Beta-Hydroxybutyric Acid level max of 24.69. Treatment: IV NSS bolus, IVP insulin, IV SQ insulin per sliding scale, Risk Factors: Age, type 2 DM, and question of medication compliance. Please clarify and document your clinical opinion in the progress notes and discharge summary. Terms such as "probable", "suspected", "likely", "questionable", "possible", or "still to be ruled out" are acceptable. IF IN AGREEMENT, YOU MUST DOCUMENT ABOVE DIAGNOSTIC STATEMENT IN DAILY PROGRESS NOTES AND DISCHARGE SUMMARY. This document is not part of the patient's record. Thank You, Ángel Dai RN [phone]
[2017-01-15 07:04] LABS: BUN/CREATININE RATIO 16.8 (10-20); CALCIUM 7.9 mg/dl (8.5-10.1); CREATININE 0.8 mg/dl (0.60-1.20); POTASSIUM 3.3 mmol/L (3.5-5.1)
[2017-01-15 07:51] LABS: ESTIMATED AVERAGE GLUCOSE 410 mg/dl; HA1C FLAG Normal (Normal)
[2017-01-15] MEDS: PANTOprazole SOD 40 MG TAB PO SCH (08:57)
[2017-01-15] MEDS: ATORVASTATIN 40 MG TAB PO SCH (08:58)
[2017-01-15] MEDS: SERTRALINE HCL 50 MG TAB PO SCH (08:58)
[2017-01-15] MEDS: ASPIRIN 81 MG ECTAB PO SCH (08:58)
[2017-01-15] MEDS ORDERED: POTASSIUM CHLORIDE 10 MEQ TABCR PO ONE (09:00)
[2017-01-15] MEDS: INSULIN GLARGINE SOLOSTAR 100 UNITS/ML 3 ML PEN SC SCH ×2 (09:04→20:55)
--- NOTE | 2017-01-15 10:39 | Pharmacy Progress Note ---
Glycemic Control Progress Note Date of Service Jan 15, 2017. Scope Glycemic Pharmacist consulted for glycemic control to write orders per LTAC, located within [facility] inpatient glycemic control protocol. Objective Accuchecks BSG (last 24hrs): Test 01/14/17 10:46 01/14/17 12:03 01/14/17 12:45 01/14/17 14:29 Bedside Glucose > 600 mg/dl (70-90) 513 mg/dl (70-90) 377 mg/dl (70-90) 360 mg/dl (70-90) Test 01/14/17 15:14 01/14/17 16:42 01/14/17 17:13 01/14/17 19:42 Random Glucose 351 mg/dl (70-99) 417 mg/dl (70-99) Bedside Glucose 383 mg/dl (70-90) 261 mg/dl (70-90) Test 01/14/17 23:43 01/15/17 04:01 01/15/17 05:52 01/15/17 06:38 Bedside Glucose 131 mg/dl (70-90) 148 mg/dl (70-90) 180 mg/dl (70-90) Random Glucose 167 mg/dl (70-99) HbA1c: Test 01/15/17 05:52 Hemoglobin A1c 15.9 % (4.5-5.6) H Recent Pertinent Medications Currently ordered: * Lantus 9 units SQ BID * Novolog SQ ACHS per the following parameters: * Goal Range: Low 140mg/dL - High 180mg/dL * Correction Factor: 25mg/dL/unit * Carb Ratio: 1 unit per 8 grams carbs consumed Outpatient Anti-Diabetic Meds Outpatient Anti-diabetic Regimen: * Patient is unsure of home medications. She believes she only uses one medication for diabetes. Skills workers have reported patient has difficulty managing her home medications. The following meds are listed on her med rec: * Glipizide ER 10mg BID * Metformin 1gm PO BID * Januvia 100mg PO daily * A1c = 15.9% (eAG ~410mg/dL) Assessment & Plan ASSESSMENT: 01/14/17 * Patient presented to ER w/ c/o chest pain, SOB, diaphoresis and dizziness * Troponin negative x 2; EKG read as non-specific ST and T wave changes but no significant change from prior EKG; CXR reportedly negative as well * Patient was profoundly hyperglycemic. She has a h/o Type 2 DM, however she is not very knowledgeable about her medications and believes she only takes one medication for DM rather than the 3 listed on her med rec. * Admission labs: Glu 848, AG 10, Bicarb 28, BOHB 8.47, Na 126, calculated effective serum osmo ~299 * Patient appears to have pure hyperglycemia, mild hyperosmolar state without ketoacidosis. BSGs have dropped quickly with IV hydration (848-->377) * The patient did report to me that she did notice increased thirst and urination recently however could not quantify the duration. Providers notes reviewed and no notation of s/s dehydration noted. Patient reported she felt much improved when I spoke with her this afternoon after receiving 2L IVF's in the ER. * Will initiate SQ insulin regimen based upon weight and moderate stress given this is a mild case of HHS and not DKA which adequate fluid resuscitation often helps resolve * Will check A1c with next labs draw as last result greater than 3 months ago 01/15/17 * Yesterday evening nursing called pharmacy requesting reassessment of insulin orders as BSGs were in the 383-417 range around dinner time. Novolog insulin doses were increased as a result. However the patient's BSG elevation was explained by the patient being given a meal tray on arrival to the floor followed by a second meal tray not long after. The patient's carbs had been covered with the first tray and no correction was given per my instructions due to concern for insulin stacking. Correctional and prandial insulin were given with the second meal tray. BSG dropped to 261 at bedtime using the original dosing parameters. Will lessen the Novolog doses again this AM as yesterday's responses to the orginal doses were reasonable. * Fasting BSG down to 148-180 range this AM; acceptable level for a patient with A1c of 15.9. Will only increase the basal dose slightly * Would like to avoid precipitating hypoglycemic symptoms in a patient with an A1c at this level. Will continue a high goal range PLAN FOR INPATIENT GLYCEMIC CONTROL: * Increase Lantus to 10 units SQ BID * Continue correction factor of 25 mg/dl/unit * Change carb ratio to 1 unit per 10 grams CHO consumed * Continue Goal range Low 140 mg/dL - High 180 mg/dL to prevent hypoglycemic symptoms * Consider restarting metformin today if no need for contrast media; renal fxn has improved and pt tolerating diet * Please note that the plan above was derived based on current level of insulin resistance and hospital stress. These recommendations are appropriate for inpatient admission only. Plan of care upon discharge will need to be reassessed to avoid potential outpatient hypo/hyperglycemia. Thank you.
--- NOTE | 2017-01-15 11:43 | PROGRESS NOTE ---
DATE: 01/15/2017 The patient was seen and examined. Chart, medications, and telemetry were reviewed. SUBJECTIVE: The patient feels substantially improved this morning. Denies any chest pains or shortness of breath. Notes no dizziness or lightheadedness other than with sudden standing. Has been up and ambulatory in room. Notes no melena, hematochezia, dysuria or hematuria. Mild confusion yesterday appears to have cleared. OBJECTIVE: VITAL SIGNS: Heart rate is 52. Blood pressure is 152/61. NECK: Thin. There is no jugular venous distention. There are no carotid bruits. LUNGS: Clear. CARDIOVASCULAR: Regular. There is no S3 gallop. ABDOMEN: Soft and nontender. There is no palpable hepatosplenomegaly. There is no hepatojugular reflux. EXTREMITIES: Without cyanosis or clubbing. There is no peripheral edema. There are intact distal pulses. DATA: EKG reveals sinus bradycardia with otherwise normal tracing. Troponins x2 since admission were negative. Glucoses are substantially improved. Electrolytes reveal a potassium of 3.3, magnesium level 1.6, and calcium 7.9. Hemoglobin is down 11.6 with mild microcytic indices. IMPRESSION: A 71-year-old female admitted with atypical symptoms of pallor, weakness and diaphoresis yesterday and was found to be profoundly hyperglycemic. No signs or symptoms of acute myocardial injury by troponin, EKG or echocardiographic findings. We will plan on proceeding with stress test either this admission or post-discharge to complete evaluation. Though, suspect current complaints have been exacerbated by metabolic derangements. We will follow the patient in the hospital.
--- NOTE | 2017-01-15 13:38 | Progress Note ---
Internal Med Progress Note Date of Service: Jan 15, 2017. Provider Documentation: SUBJECTIVE: The patient was seen and examined Denies any CP,palpitation,SOB No Abdominal pain,nausea and or vomiting OBJECTIVE: Vital Signs-as noted below Exam: General-No distress at rest Eyes-Normal ENT-normal Neck-supple Lungs-clear to ausucltate bilaterally Heart-Regular.2/6 ESM AA and Precordial area Abdomen-Benign,no masses,bowel sound present Extremities-No edema Neuro-AAOX3 Has borderline mental Lab data as noted below. ASSESSMENT & PLAN: Chest Pain No ACS Has significant risk factor such as DM, age, HTN and mother with [place] at age 70 EKG shown non specific ST changes in V4 and V6 She had a nuclear stress test done back 05/08 that was negative No more CP ECHO:: * The left ventricle is normal in size. * There is mild concentric left ventricular hypertrophy. * The left ventricular wall motion is normal. * Left ventricular systolic function is normal. * Ejection Fraction = 60-65%. * Grade I diastolic dysfunction, (abnormal relaxation pattern). Aortic valve sclerosis mild, without significant aortic valvular stenosis Appreciate Cardiology input DM type 2-Uncontrolled Last hba1c 8.6 on 10/16 and now increased to 15.9 Elevated Beta-hydroxybutyric acid BS on admission 848 Doubt any Ketoacidosis Appreciate Pharmacy input Likely to need Insulin on discharge MATI Creatine baseline around 1 Creatine on admission 1.6 Will hold lisinopril, Maxzide and metformin for now received IVF Avoid nephrotoxic agent Continue monitor BMP Kidney function is normalized HTN BP elevated Lisinopril and Maxzide on hold Will start on prn hydralazine continue monitor BP-remains on high end Hyponatremia-secondary to Hyperglycemia Due to elevated glucose Normalized Hypothyroidism check TSH in am continue levothyroxine DVT px on heparin subq Code Status Full code Disposition Will consult case management for placement Vital Signs: Date Time Temp Pulse Resp B/P (MAP) Pulse Ox O2 Delivery O2 Flow Rate FiO2 01/15/17 12:00 Room Air 01/15/17 11:09 36.7 48 20 142/64 (90) 97 Room Air 151/65 (93) 01/15/17 08:00 97 Room Air 01/15/17 07:14 36.6 51 20 152/61 (91) 97 Room Air 01/15/17 04:00 Room Air 01/15/17 03:48 37.0 52 19 124/52 (76) 98 Room Air 01/15/17 00:01 36.8 51 19 129/69 (89) 97 Room Air 01/15/17 00:00 Room Air 01/14/17 20:00 Room Air 01/14/17 19:43 36.5 55 20 129/51 (77) 97 01/14/17 16:00 36.8 63 18 114/48 (70) 98 Room Air 01/14/17 16:00 98 Room Air 01/14/17 15:30 36.8 63 18 114/48 (70) 98 Room Air 01/14/17 13:30 37.2 54 18 161/72 99 Room Air Lab Results: Results Past 24 Hours Test 01/14/17 14:29 01/14/17 15:14 01/14/17 16:42 01/14/17 17:13 Range/Units Bedside Glucose 360 383 70-90 mg/dl Prothrombin Time 10.6 9.0-12.0 SECONDS Prothromb Time International Ratio 1.0 0.9-1.1 Activated Partial Thromboplast Time 22.9 21.0-31.0 SECONDS Partial Thromboplastin Ratio 0.9 Sodium Level 135 134 136-145 mmol/L Potassium Level 3.1 3.5 3.5-5.1 mmol/L Chloride Level 97 99 98-107 mmol/L Carbon Dioxide Level 28 27 21-32 mmol/L Anion Gap 10.0 8.0 3-11 mmol/L Blood Urea Nitrogen 18 16 7-18 mg/dl Creatinine 1.00 1.40 0.60-1.20 mg/dl Est Creatinine Clear Calc Drug Dose 48.3 34.5 ml/min Estimated GFR () 65.6 43.7 Estimated GFR (Non- 56.6 37.7 BUN/Creatinine Ratio 17.7 11.4 10-20 Random Glucose 351 417 70-99 mg/dl Calcium Level 8.3 8.0 8.5-10.1 mg/dl Total Bilirubin 0.4 0.2-1 mg/dl Aspartate Amino Transf (AST/SGOT) 14 15-37 U/L Alanine Aminotransferase (ALT/SGPT) 19 12-78 U/L Alkaline Phosphatase 116 45-117 U/L Creatine Kinase MB 2.8 0.5-3.6 ng/ml Creatine Kinase MB Ratio 0-3.0 Troponin I < 0.015 0-0.045 ng/ml Total Protein 6.5 6.4-8.2 gm/dl Albumin 3.5 3.4-5.0 gm/dl Globulin 3.0 2.5-4.0 gm/dl Albumin/Globulin Ratio 1.2 0.9-2 Beta-Hydroxybutyric Acid 24.69 7.64 0.2-2.81 mg/dL Thyroid Stimulating Hormone (TSH) 1.020 0.300-4.500 uIu/ml Test 01/14/17 19:42 01/14/17 21:22 01/14/17 23:43 01/15/17 04:01 Range/Units Bedside Glucose 261 131 148 70-90 mg/dl Creatine Kinase MB 2.5 0.5-3.6 ng/ml Creatine Kinase MB Ratio 0-3.0 Troponin I < 0.015 0-0.045 ng/ml Test 01/15/17 05:52 01/15/17 06:38 01/15/17 08:25 01/15/17 11:41 Range/Units White Blood Count 5.08 4.8-10.8 K/uL Red Blood Count 4.58 4.2-5.4 M/uL Hemoglobin 11.6 12.0-16.0 g/dL Hematocrit 36.5 37-47 % Mean Corpuscular Volume 79.7 80-100 fL Mean Corpuscular Hemoglobin 25.3 25-34 pg Mean Corpuscular Hemoglobin Concent 31.8 32-36 g/dl RDW Standard Deviation 41.4 36.4-46.3 fL RDW Coefficient of Variation 14.5 11.5-14.5 % Platelet Count 189 130-400 K/uL Mean Platelet Volume 9.5 7.4-10.4 fL Sodium Level 141 136-145 mmol/L Potassium Level 3.3 3.5-5.1 mmol/L Chloride Level 106 98-107 mmol/L Carbon Dioxide Level 29 21-32 mmol/L Anion Gap 6.0 3-11 mmol/L Blood Urea Nitrogen 13 7-18 mg/dl Creatinine 0.80 0.60-1.20 mg/dl Est Creatinine Clear Calc Drug Dose 60.3 ml/min Estimated GFR () 86.0 Estimated GFR (Non- 74.2 BUN/Creatinine Ratio 16.8 10-20 Random Glucose 167 70-99 mg/dl Estimated Average Glucose 410 mg/dl Hemoglobin A1c 15.9 4.5-5.6 % Calcium Level 7.9 8.5-10.1 mg/dl Bedside Glucose 180 245 70-90 mg/dl Magnesium Level 1.6 1.8-2.4 mg/dl
[2017-01-15] MEDS ORDERED: MAGNESIUM SULFATE 1GM / D5W 1 GM in PREMIXED IN D5W 100 ML IV ONE (13:45)
[2017-01-15] MEDS: METFORMIN HCL 500 MG TAB PO SCH (17:02)
[2017-01-15] MEDS: TRAZODONE HCL 50 MG TAB PO PRN (20:51)
[2017-01-16] VITALS (7 sets, daily range): BP systolic 108–162; BP diastolic 55–71; PULSE 52–66; TEMP 36.3–37; O2SAT 96–100; Ht 167.6 cm; Wt 66.1 kg
[2017-01-16 05:41] LABS: HEMATOCRIT 36.8 % (37-47); MEAN CELL VOLUME 80.5 fL (80-100); MEAN CORPUSCULAR HGB CONC 32.3 g/dl (32-36); MEAN PLATELET VOLUME 9.7 fL (7.4-10.4); PLATELET COUNT 177 K/uL (130-400); RED BLOOD COUNT 4.57 M/uL (4.2-5.4); WHITE BLOOD COUNT 7.49 K/uL (4.8-10.8)
[2017-01-16] MEDS: LEVOTHYROXINE 125 MCG TAB PO SCH ×2 (05:41→05:47)
[2017-01-16] MEDS: HEPARIN SOD 5000 UNIT/0.5 ML CARP SQ SCH ×2 (05:48→12:09)
[2017-01-16 06:10] LABS: BUN/CREATININE RATIO 15.6 (10-20); CALCIUM 8.1 mg/dl (8.5-10.1); CREATININE 0.77 mg/dl (0.60-1.20); POTASSIUM 4.7 mmol/L (3.5-5.1)
[2017-01-16] MEDS: INSULIN ASPART 100 UNITS/ML 3 ML PEN SC SCH ×2 (08:50→12:09)
[2017-01-16] MEDS: PANTOprazole SOD 40 MG TAB PO SCH (08:53)
[2017-01-16] MEDS: ASPIRIN 81 MG ECTAB PO SCH (08:53)
[2017-01-16] MEDS: ATORVASTATIN 40 MG TAB PO SCH (08:53)
[2017-01-16] MEDS: SERTRALINE HCL 50 MG TAB PO SCH (08:54)
[2017-01-16] MEDS: METFORMIN HCL 500 MG TAB PO SCH (08:57)
[2017-01-16] MEDS ORDERED: INSULIN GLARGINE SOLOSTAR 100 UNITS/ML 3 ML PEN SC SCH (09:00)
[2017-01-16] MEDS ORDERED: LISINOPRIL 5 MG TAB PO ONE (10:15)
--- NOTE | 2017-01-16 10:36 | CARDIOLOGY CONSULTATION ---
DATE OF CONSULTATION: 01/16/2017 The patient seen and examined. Chart, medications, telemetry reviewed. SUBJECTIVE: The patient feels "very well" this morning, is now ambulatory in the hallway. Notes no chest pain or discomfort. Notes no dizziness or lightheadedness. Notes no syncope or near syncope. Blood pressures have been trending higher off usual lisinopril. OBJECTIVE: VITAL SIGNS: Heart rate is 54, blood pressure is 152/62. NECK: Thin. There is no jugular venous distention. No carotid bruits. LUNGS: Clear. CARDIOVASCULAR: Regular with normal S1, S2, no murmur or rub. ABDOMEN: Soft, nontender. EXTREMITIES: Without cyanosis or clubbing. There is no peripheral edema. There are intact distal pulses. LABORATORY STUDIES: Sodium is 136, potassium is 4.7, chloride is 101, bicarbonate is 29, BUN is 12, creatinine 0.77, glucose is 209, calcium is 8.1, white cell count 7.4, hemoglobin is 11.9 with MCV of 80.5. IMPRESSION: A 71-year-old female admitted with marked metabolic derangement, chest tightness, confusion, initial glucose is greater than 800. The patient has clinically responded. There have been no signs of myocardial injury or ischemia by troponin, EKGs or echocardiographic findings. RECOMMENDATIONS: Would recommend resuming lisinopril dosing for hypertension control, will give 5 mg this morning and then resume 10 mg usual daily dosing. Will ambulate in the hallway. Consider stress echocardiography in 1 month's time, though overall current complaints and symptoms do not appear of ischemic origin.
--- NOTE | 2017-01-16 10:47 | Pharmacy Progress Note ---
Glycemic Control Progress Note Date of Service Jan 16, 2017. Scope Glycemic Pharmacist consulted for glycemic control to write orders per [facility] inpatient glycemic control protocol. Objective Accuchecks BSG (last 24hrs): Test 01/15/17 11:41 01/15/17 16:26 01/15/17 20:42 01/16/17 05:29 Bedside Glucose 245 mg/dl (70-90) 286 mg/dl (70-90) 247 mg/dl (70-90) Random Glucose 209 mg/dl (70-99) Test 01/16/17 06:45 Bedside Glucose 200 mg/dl (70-90) HbA1c: Test 01/15/17 05:52 Hemoglobin A1c 15.9 % (4.5-5.6) H Recent Pertinent Medications Currently ordered: * Lantus 10 units SQ BID * Novolog SQ ACHS per the following parameters: * Goal Range: Low 120mg/dL - High 160mg/dL * Correction Factor: 25mg/dL/unit * Carb Ratio: 1 unit per 10 grams carbs consumed * Metformin 1gm PO BID Outpatient Anti-Diabetic Meds Outpatient Anti-diabetic Regimen: * Patient is unsure of home medications. She believes she only uses one medication for diabetes. Skills workers have reported patient has difficulty managing her home medications. The following meds are listed on her med rec: * Glipizide ER 10mg BID * Metformin 1gm PO BID * Januvia 100mg PO daily * Per refill records she was likely only taking Metformin, if that as it was last filled September 22 * A1c = 15.9% (eAG ~410mg/dL) Assessment & Plan ASSESSMENT: 01/14/17 * Patient presented to ER w/ c/o chest pain, SOB, diaphoresis and dizziness * Troponin negative x 2; EKG read as non-specific ST and T wave changes but no significant change from prior EKG; CXR reportedly negative as well * Patient was profoundly hyperglycemic. She has a h/o Type 2 DM, however she is not very knowledgeable about her medications and believes she only takes one medication for DM rather than the 3 listed on her med rec. * Admission labs: Glu 848, AG 10, Bicarb 28, BOHB 8.47, Na 126, calculated effective serum osmo ~299 * Patient appears to have pure hyperglycemia, mild hyperosmolar state without ketoacidosis. BSGs have dropped quickly with IV hydration (848-->377) * The patient did report to me that she did notice increased thirst and urination recently however could not quantify the duration. Providers notes reviewed and no notation of s/s dehydration noted. Patient reported she felt much improved when I spoke with her this afternoon after receiving 2L IVF's in the ER. * Will initiate SQ insulin regimen based upon weight and moderate stress given this is a mild case of HHS and not DKA which adequate fluid resuscitation often helps resolve * Will check A1c with next labs draw as last result greater than 3 months ago 01/15/17 * Yesterday evening nursing called pharmacy requesting reassessment of insulin orders as BSGs were in the 383-417 range around dinner time. Novolog insulin doses were increased as a result. However the patient's BSG elevation was explained by the patient being given a meal tray on arrival to the floor followed by a second meal tray not long after. The patient's carbs had been covered with the first tray and no correction was given per my instructions due to concern for insulin stacking. Correctional and prandial insulin were given with the second meal tray. BSG dropped to 261 at bedtime using the original dosing parameters. Will lessen the Novolog doses again this AM as yesterday's responses to the orginal doses were reasonable. * Fasting BSG down to 148-180 range this AM; acceptable level for a patient with A1c of 15.9. Will only increase the basal dose slightly * Would like to avoid precipitating hypoglycemic symptoms in a patient with an A1c at this level. Will continue a high goal range 01/16/17 * Refill records reviewed and patient may not have been taking any of her meds for DM for the past month. Only med filled this year was metformin 30 days supply, last filled September 22. * Patient received 43 units SQ insulin yesterday + 1000mg metformin; BSGs ranged 148-286 * Fasting BSG elevated this AM: 200-209 with 20 units of Lantus on board - she may require more basal insulin but oral agents are being added, will continue the same dose for another 24 hrs and convert to once daily dose in the AM should pt require basal insulin on discharge * Post-prandial BSGs elevated yesterday after lessening prandial insulin dose, will resume CR 8. Also plan to place this patient back on Januvia which will help target post-prandial BSGs PLAN FOR INPATIENT GLYCEMIC CONTROL: * Change Lantus to 20 units SQ Q AM for convenience * Continue correction factor of 25 mg/dl/unit * Change carb ratio to 1 unit per 8 grams CHO consumed * Continue Goal range Low 120 mg/dL - High 160 mg/dL to prevent hypoglycemic symptoms * Continue Metformin 1gm PO BID and restart Januvia 100mg PO daily RECOMMENDATIONS FOR DISCHARGE: * Patient has intellectual disability as well as difficulty paying for meds * She has a fear of needles, but was able to give herself insulin injection 01/15 * There is significant concern that she may forget to give herself insulin injections on discharge and also fear of giving the incorrect dosage * There is also concern that she may not comply with BSG monitoring * Her A1c in May was 7.9% however latest A1c up to 15.9%, perhaps the 3 oral meds were controlling her at that time. * She has a h/o hypoglycemia in the past when she was having difficulty obtaining food. She may be at risk hypoglycemia with insulin or glipizide * At this time, would recommend: * Low dose of Lantus 10 units SQ once daily in the AM if possible to arrange for home health RN assistance, if unable to do so would forgo this therapy. Might consider sulfonylurea on discharge if insulin not able to be given due to safety concerns * Metformin 1gm PO BID * Januvia 100mg PO daily * Please note that the plan above was derived based on current level of insulin resistance and hospital stress. These recommendations are appropriate for inpatient admission only. Plan of care upon discharge will need to be reassessed to avoid potential outpatient hypo/hyperglycemia. Thank you.
[2017-01-16] MEDS ORDERED: SITAGLIPTIN 100 MG TAB PO SCH (11:00)
--- NOTE | 2017-01-16 11:08 | Progress Note ---
Internal Med Progress Note Date of Service: Jan 16, 2017. Provider Documentation: SUBJECTIVE: The patient was seen and examined Denies any CP,palpitation,SOB No Abdominal pain,nausea and or vomiting Remains stable without any complaints OBJECTIVE: Vital Signs-as noted below Exam: General-No distress at rest Eyes-Normal ENT-normal Neck-supple Lungs-clear to ausucltate bilaterally Heart-Regular.2/6 ESM AA and Precordial area Abdomen-Benign,no masses,bowel sound present Extremities-No edema Neuro-AAOX3 Has borderline mental Lab data as noted below. ASSESSMENT & PLAN: Chest Pain No ACS Has significant risk factor such as DM, age, HTN and mother with IL at age 70 EKG shown non specific ST changes in V4 and V6 She had a nuclear stress test done back 05/08 that was negative No more CP ECHO:: * The left ventricle is normal in size. * There is mild concentric left ventricular hypertrophy. * The left ventricular wall motion is normal. * Left ventricular systolic function is normal. * Ejection Fraction = 60-65%. * Grade I diastolic dysfunction, (abnormal relaxation pattern). Aortic valve sclerosis mild, without significant aortic valvular stenosis Appreciate Cardiology input Remains stable DM type 2-Uncontrolled Last hba1c 8.6 on 10/16 and now increased to 15.9 Elevated Beta-hydroxybutyric acid BS on admission 848 Doubt any Ketoacidosis Appreciate Pharmacy input Will need Insulin on discharge MATI Creatine baseline around 1 Creatine on admission 1.6 Will hold lisinopril, Maxzide and metformin for now received IVF Avoid nephrotoxic agent Continue monitor BMP Kidney function is normalized Lisinopril added and will increase the dose from tomorrow HTN BP elevated Lisinopril and Maxzide on hold Will start on prn hydralazine continue monitor BP-remains on high end Start Lisinopril Hyponatremia-secondary to Hyperglycemia Due to elevated glucose Normalized Hypothyroidism check TSH in am continue levothyroxine DVT px on heparin subq Code Status Full code Disposition Will consult case management for placement Will need supervision of care on discharge Vital Signs: Date Time Temp Pulse Resp B/P (MAP) Pulse Ox O2 Delivery O2 Flow Rate FiO2 01/16/17 07:00 36.9 54 20 152/62 (92) 98 Room Air 162/71 (101) 01/16/17 04:25 37.0 52 18 141/71 (94) 96 Room Air 01/16/17 04:00 Room Air 01/16/17 00:10 98 Room Air 01/16/17 00:00 37.0 57 19 144/68 (93) 98 Room Air 01/15/17 20:30 98 Room Air 01/15/17 19:31 37.0 51 18 157/68 (97) 98 Room Air 01/15/17 16:00 Room Air 01/15/17 15:00 36.6 60 18 147/56 (86) 99 Room Air 01/15/17 12:00 Room Air 01/15/17 11:09 36.7 48 20 142/64 (90) 97 Room Air 151/65 (93) Lab Results: Results Past 24 Hours Test 01/15/17 11:41 01/15/17 16:26 01/15/17 20:42 01/16/17 05:29 Range/Units Bedside Glucose 245 286 247 70-90 mg/dl White Blood Count 7.49 4.8-10.8 K/uL Red Blood Count 4.57 4.2-5.4 M/uL Hemoglobin 11.9 12.0-16.0 g/dL Hematocrit 36.8 37-47 % Mean Corpuscular Volume 80.5 80-100 fL Mean Corpuscular Hemoglobin 26.0 25-34 pg Mean Corpuscular Hemoglobin Concent 32.3 32-36 g/dl RDW Standard Deviation 42.6 36.4-46.3 fL RDW Coefficient of Variation 14.5 11.5-14.5 % Platelet Count 177 130-400 K/uL Mean Platelet Volume 9.7 7.4-10.4 fL Sodium Level 136 136-145 mmol/L Potassium Level 4.7 3.5-5.1 mmol/L Chloride Level 101 98-107 mmol/L Carbon Dioxide Level 29 21-32 mmol/L Anion Gap 6.0 3-11 mmol/L Blood Urea Nitrogen 12 7-18 mg/dl Creatinine 0.77 0.60-1.20 mg/dl Est Creatinine Clear Calc Drug Dose 62.7 ml/min Estimated GFR () 90.0 Estimated GFR (Non- 77.7 BUN/Creatinine Ratio 15.6 10-20 Random Glucose 209 70-99 mg/dl Calcium Level 8.1 8.5-10.1 mg/dl Test 01/16/17 06:45 Range/Units Bedside Glucose 200 70-90 mg/dl
[2017-01-16] MEDS ORDERED: INSDGIPEN SC (13:13)
--- NOTE | 2017-01-16 13:19 | Discharge Instructions ---
Discharge Instructions Date of Service Jan 16, 2017. Admission Reason for Admission: Chest Pain, Hyperglycemia Due To Type 2 Diabetes.. Discharge Discharge Diagnosis / Problem: Chest pain-no ACS,Hyperglycemia Discharge Goals Goal(s): Prevent Disease Progression Activity Recommendations Activity Level: Assistance Required Therapies: Physical Therapy, Occupational Therapy . Additional Information Patient informed of condition: Yes Advance Directives: No DNR: No Level of Care: Skilled Communicable Disease: No Prognosis: Stable Oxygen at (LPM): 2 liter/min via NC as needed Lloyd Catheter: No Instructions / Follow-Up Instructions / Follow-Up Please make an appointment with your PCP in 1 week.Please arrange for Stress ECHO through [facility] office in 1 month Current Hospital Diet Patient's current hospital diet: Diabetes Type 2 Diet, AHA Diet (Heart Healthy) Discharge Diet Recommended Diet: AHA Diet (Heart Healthy), Diabetes Type 2 Diet Pending Studies Studies pending at discharge: no Laboratory Results Hemoglobin A1c Test 01/15/17 05:52 Range/Units Estimated Average Glucose 410 mg/dl Hemoglobin A1c 15.9 H 4.5-5.6 % Medical Emergencies . Who to Call and When: Medical Emergencies: If at any time you feel your situation is an emergency, please call 911 immediately. . Non-Emergent Contact Non-Emergency issues call your: Primary Care Provider . Past History Medical & Surgical History: (1) Hyperglycemia due to type 2 diabetes mellitus (2) Chest pain (3) Benign hypertension (4) Papillary thyroid carcinoma (5) Patent foramen ovale (6) Major depression (7) History of appendectomy (8) H/O: hysterectomy (9) S/P thyroidectomy (10) H/O total shoulder replacement (11) S/p total knee replacement, bilateral . "Provider Documentation" section prepared by Swetha Chapman. . Core Measure Problem Core Measures: None
[2017-01-16] MEDS ORDERED: INSULIN GLARGINE SOLOSTAR 100 UNITS/ML 3 ML PEN SC ONE (16:15)
[2017-01-17] MEDS ORDERED: INSULIN ASPART 100 UNITS/ML 3 ML PEN SC SCH
--- NOTE | 2017-01-17 07:41 | Discharge Summary ---
Discharge Summary Date of Service Jan 17, 2017. Discharge Summary Admission Date: Jan 14, 2017 at 12:34 Discharge Date: Jan 16, 2017 Discharge Disposition: Home Principal Diagnosis: Chest pain-no ACS,Hyperglycemia,Uncontrolled Diabetes Secondary Diagnoses/Problems: Please see H&P and Hospital progress note Consultations: Cardiology Medication Reconciliation New Medications: Insulin Glargine (Lantus Solostar) 100 Unit/Ml Inj 10 UNITS SC QAM for 30 Days, #1 VIAL Continued Medications: Aspirin (Aspirin EC Low Dose) 81 Mg Ectab 81 MG PO DAILY Atorvastatin Calcium (Lipitor) 80 Mg Tab 80 MG PO DAILY, TAB Hydrocortisone 1% (Hydrocortisone 1%) 90 Appln/30 Gm Cr 1 APPLN EXT TID PRN for rash Levothyroxine Sodium (Synthroid) 125 Mcg Tab 125 MCG PO DAILY, TAB Lisinopril (Lisinopril) 10 Mg Tab 10 MG PO DAILY, #30 2 Refills Metformin HCl (Metformin HCl ER) 1,000 Mg Tab 1000 MG PO BIDM Omeprazole (Prilosec) 20 Mg Capcr 20 MG PO DAILY, 0 Refills Promethazine Hcl (Phenergan) 25 Mg Tab 25 MG PO Q6 PRN for Nausea, TAB Sertraline (Zoloft) 100 Mg Tab 150 MG PO DAILY, 0 Refills Sitagliptin Phosphate (Januvia) 100 Mg Tab 100 MG PO DAILY, TAB Trazodone Hcl (Trazodone) 50 Mg Tab 50-100 MG PO HS PRN for Sleep, TAB Discontinued Medications: Glipizide (Glipizide Er) 5 Mg Tab 10 MG PO AMPM Admission Information HPI (per Admitting provider): 71 yo Female with PMH DM type 2, Hypothyroidism, HTN, Major depression was brought to the ER for from work for Chest pain. Pt said that she has been having pressure like chest pain for the last 3 weeks. She said that in the last 2 days the chest pain got worst. She said that she was at work today feeling weak, dizzy, SOB and pale. Pt described the chest pain like pressure like and feels like someone sitting on her chest, non radiating, worsening when she lies down and alleviated when sitting up, grade 3/10. Pt is very active. she lives alone and does not know her medications. she said that she is only taking 1 med for her DM when she has 3 meds for DM on her med list. As per niece pt has someone that comes once a week to arrange her meds for her and niece said that sometimes take wrong med. She does not check her BS. Her niece said that few months ago she passed out because of low blood sugar. Pt glucose on BMP was 845 today. Currently pt said that she is feeling a little better. Denies any SOB, palpitation, numbness, urinary symptoms, diarrhea and nausea. 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 Status: Chronic (2) H/O: hysterectomy Status: Resolved (3) History of appendectomy Status: Resolved (4) S/P thyroidectomy Status: Chronic (5) S/p total knee replacement, bilateral Status: Chronic Family History Diabetes mellitus MOTHER FH: CAD (coronary artery disease) FATHER Social History Smoking Status: Never Smoker Drug Use: none Marital Status: Housing status: lives alone, other Occupational Status: employed Immunizations History of Influenza Vaccine: Yes Influenza Vaccine Date: Apr 22, 2012 History of Tetanus Vaccine?: Yes Tetanus Immunization Date: Feb 20, 2007 History of Pneumococcal: No Pneumococcal Date: Apr 27, 2008 History of Hepatitis B Vaccine: No Multi-Drug Resistant Organisms History of MDRO: No Allergies Coded Allergies: No Known Allergies (Verified , 12/07/16) Home Medications Scheduled Aspirin (Aspirin EC Low Dose), 81 MG PO DAILY Atorvastatin Calcium (Lipitor), 80 MG PO DAILY Glipizide (Glipizide Er), 10 MG PO AMPM Levothyroxine Sodium (Synthroid), 125 MCG PO DAILY Lisinopril (Lisinopril), 10 MG PO DAILY Metformin HCl (Metformin HCl ER), 1,000 MG PO BIDM Omeprazole (Prilosec), 20 MG PO DAILY Sertraline (Zoloft), 150 MG PO DAILY Sitagliptin Phosphate (Januvia), 100 MG PO DAILY Scheduled PRN Hydrocortisone 1% (Hydrocortisone 1%), 1 APPLN EXT TID PRN for rash Promethazine Hcl (Phenergan), 25 MG PO Q6 PRN for Nausea Trazodone Hcl (Trazodone), 50-100 MG PO HS PRN for Sleep Review of Systems Constitutional: + sweats, No fever, No chills Eyes: No worsening of vision, No redness ENT: No hearing loss, No sore throat Respiratory: No cough, No sputum, No wheezing Cardiovascular: + chest pain, No claudication, No palpitations Abdomen: No pain, No nausea, No vomiting Musculoskeletal: + joint pain, No calf pain Genitourinary - Female: No dysuria, No hematuria Neurologic: + numbness/tingling Psychiatric: No substance abuse Endocrine: No excessive thirst Hematologic / Lymphatic: No night sweats Integumentary: No rash, No itch Physical Ex - H&P Physical Exam Vital Signs Date Time Temp Pulse Resp B/P (MAP) Pulse Ox O2 Delivery O2 Flow Rate FiO2 01/14/17 12:46 53 16 159/68 98 Room Air 01/14/17 12:42 59 01/14/17 12:05 53 16 169/76 100 Room Air 01/14/17 11:21 54 16 183/66 97 Room Air 01/14/17 09:59 62 18 166/62 99 Room Air 01/14/17 09:25 65 01/14/17 09:23 97 Room Air 01/14/17 09:21 97 Room Air 01/14/17 09:12 36.4 85 18 155/73 96 Room Air General Appearance: WD/WN, no apparent distress Head: normocephalic, atraumatic Eyes: PERRL, EOMI ENT: normal ENT inspection Neck: no JVD Respiratory/Chest: no respiratory distress, no accessory muscle use Cardiovascular: regular rate, rhythm, no JVD, + systolic murmur Abdomen/GI: normal bowel sounds, non tender, soft Back: no CVA tenderness Extremities/Musculoskelatal: no calf tenderness 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, alert, oriented x 3 Skin: warm/dry, no rash Diagnostics - H&P Diagnostics Laboratory Results Results Past 24 Hours Test 01/14/17 09:44 01/14/17 10:02 01/14/17 10:46 01/14/17 11:29 Range/Units White Blood Count 5.24 4.8-10.8 K/uL Red Blood Count 4.82 4.2-5.4 M/uL Hemoglobin 13.2 12.0-16.0 g/dL Hematocrit 39.4 37-47 % Mean Corpuscular Volume 81.7 80-100 fL Mean Corpuscular Hemoglobin 27.4 25-34 pg Mean Corpuscular Hemoglobin Concent 33.5 32-36 g/dl Platelet Count 200 130-400 K/uL Sodium Level 126 136-145 mmol/L Potassium Level 4.0 3.5-5.1 mmol/L Chloride Level 88 98-107 mmol/L Carbon Dioxide Level 28 21-32 mmol/L Anion Gap 10.0 3-11 mmol/L Blood Urea Nitrogen 24 7-18 mg/dl Creatinine 1.60 0.60-1.20 mg/dl Estimated GFR () 37.2 Estimated GFR (Non- 32.1 BUN/Creatinine Ratio 15.2 10-20 Random Glucose 848 70-99 mg/dl Calcium Level 9.3 8.5-10.1 mg/dl Beta-Hydroxybutyric Acid 8.47 0.2-2.81 mg/dL Bedside Troponin I < 0.030 < 0.030 0-0.045 ng/ml Bedside Glucose > 600 70-90 mg/dl Test 01/14/17 12:03 01/14/17 12:45 Range/Units Bedside Glucose 513 377 70-90 mg/dl Diagnostic Radiology CHEST ONE VIEW PORTABLE CLINICAL HISTORY: chest pain dyspnea COMPARISON STUDY: 04/22/2015 FINDINGS: The bones soft tissues and hemidiaphragms are normal. The cardiomediastinal silhouette is normal. The lungs are clear. The pulmonary vasculature is normal. IMPRESSION: Negative chest. The above report was generated using voice recognition software. It may contain grammatical, syntax or spelling errors. Impression - H&P Impression Assessment and Plan Chest Pain Need to R/o ACS has significant risk factor such as DM, age, HTN and mother with AL at age 70 1st set troponin negative EKG shown non specific ST changes in V4 and V6 She had a nuclear stress test done back 05/08 that was negative Will get a resting echo follow CM repeat EKG in am Continue asa and statin Cardiology consult Continue monitor pt in tele DM type 2 Last hba1c 8.6 on 10/16 Uncontrolled Elevated Beta-hydroxybutyric acid check hba1c in am BS on admission 848 Check BMP at 5pm Only taking one BS med has previous hx of hypoglycemia where she passed out Might not be a good candidate for insulin upon discharge if she will be self administered the insulin hold oral DM med for now Insulin coverage pharmacy consult MATI creatine baseline around 1 creatine back in 10/08 was 1.3 Creatine on admission 1.6 Will hold lisinopril, Maxzide and metformin for now received IVF Avoid nephrotoxic agent Continue monitor BMP HTN BP elevated Lisinopril and Maxzide on hold Will start on prn hydralazine continue monitor BP Hyponatremia Due to elevated glucose corrected Na 133.5 Hypothyroidism check TSH in am continue levothyroxine DVT px on heparin subq Code Status Full code Disposition Will consult case management for placement Level of Care Telemetry Resuscitation Status FULL RESUSCITATION VTE Prophylaxis VTE Risk Assessment Done? 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 * There is mild concentric left ventricular hypertrophy. * The left ventricular wall motion is normal. * Left ventricular systolic function is normal. * Ejection Fraction = 60-65%. * Grade I diastolic dysfunction, (abnormal relaxation pattern). Aortic valve sclerosis mild, without significant aortic valvular stenosis Appreciate Cardiology input Remains stable DM type 2-Uncontrolled Last hba1c 8.6 on 10/16 and now increased to 15.9 Elevated Beta-hydroxybutyric acid BS on admission 848 Doubt any Ketoacidosis Appreciate Pharmacy input Will need Insulin on discharge MATI Creatine baseline around 1 Creatine on admission 1.6 Will hold lisinopril, Maxzide and metformin for now received IVF Avoid nephrotoxic agent Continue monitor BMP Kidney function is normalized Lisinopril added and will increase the dose from tomorrow HTN BP elevated Lisinopril and Maxzide on hold Will start on prn hydralazine continue monitor BP-remains on high end Start Lisinopril Hyponatremia-secondary to Hyperglycemia Due to elevated glucose Normalized Hypothyroidism check TSH in am continue levothyroxine DVT px on heparin subq Code Status Full code Disposition Will consult case management for placement Will need supervision of care on discharge Total time spent on discharge = 35 minutes This includes examination of the patient, discharge planning, medication reconciliation, and communication with other providers. Discharge Instructions Date of Service Jan 16, 2017. Admission Reason for Admission: Chest Pain, Hyperglycemia Due To Type 2 Diabetes.. Discharge Discharge Diagnosis / Problem: Chest pain-no ACS,Hyperglycemia Discharge Goals Goal(s): Prevent Disease Progression Activity Recommendations Activity Level: Assistance Required Therapies: Physical Therapy, Occupational Therapy . Additional Information Patient informed of condition: Yes Advance Directives: No DNR: No Level of Care: Skilled Communicable Disease: No Prognosis: Stable Oxygen at (LPM): 2 liter/min via NC as needed Lloyd Catheter: No Instructions / Follow-Up Instructions / Follow-Up Please make an appointment with your PCP in 1 week.Please arrange for Stress ECHO through [facility] Cardiology office in 1 month Current Hospital Diet Patient's current hospital diet: Diabetes Type 2 Diet, AHA Diet (Heart Healthy) Discharge Diet Recommended Diet: AHA Diet (Heart Healthy), Diabetes Type 2 Diet Pending Studies Studies pending at discharge: no Laboratory Results Hemoglobin A1c Test 01/15/17 05:52 Range/Units Estimated Average Glucose 410 mg/dl Hemoglobin A1c 15.9 H 4.5-5.6 % Medical Emergencies . Who to Call and When: Medical Emergencies: If at any time you feel your situation is an emergency, please call 911 immediately. . Non-Emergent Contact Non-Emergency issues call your: Primary Care Provider . Past History Medical & Surgical History: (1) Hyperglycemia due to type 2 diabetes mellitus (2) Chest pain (3) Benign hypertension (4) Papillary thyroid carcinoma (5) Patent foramen ovale (6) Major depression (7) History of appendectomy (8) H/O: hysterectomy (9) S/P thyroidectomy (10) H/O total shoulder replacement (11) S/p total knee replacement, bilateral . "Provider Documentation" section prepared by Swetha Chapman. . Core Measure Problem Core Measures: None <Electronically signed by Swetha Chapman M.D.> Additional Copies To Carmelo Cole M.D.
[2017-01-17] MEDS ORDERED: LISINOPRIL 10 MG TAB PO SCH (09:00)
== END 2017-01-16 16:35 | DRG 683 ==
LOC: C.EDB 09:08 → C.2E 12:34 → ENRESERV 12:39
PROVIDERS: ADMIT Internal Medicine; ATTEND Internal Medicine
DX: N17.9 Acute kidney failure, unspecified (principal); E87.1 Hypo-osmolality and hyponatremia; Q21.1 Atrial septal defect; R07.89 Other chest pain; E11.65 Type 2 diabetes mellitus with hyperglycemia; R41.0 Disorientation, unspecified; I44.7 Left bundle-branch block, unspecified; I49.3 Ventricular premature depolarization; I35.8 Other nonrheumatic aortic valve disorders; E89.0 Postprocedural hypothyroidism; I10 Essential (primary) hypertension; F70 Mild intellectual disabilities; F32.9 Major depressive disorder, single episode, unspecified; Z91.14 Patient's other noncompliance with medication regimen; Z96.611 Presence of right artificial shoulder joint; Z96.653 Presence of artificial knee joint, bilateral; Z82.49 Family history of ischemic heart disease and other diseases of the circulatory system; Z79.82 Long term (current) use of aspirin; Z79.84 Long term (current) use of oral hypoglycemic drugs; Z79.899 Other long term (current) drug therapy

== ENCOUNTER 2017-10-11 11:27 | Emergency (ER) | payer OTHER ==
[~2017-10-11] VITALS: Ht 162.6 cm; Wt 80.0 kg
[2017-10-11 11:27] VITALS: TEMP 37.1; Ht 162.6 cm; Wt 80.0 kg
[~2017-10-11 11:27] MED LIST changes: -ASPEC81 PO; +ASPI-320 PO; -GLIP-197 PO; +INSDGIPEN SC
[2017-10-11] MEDS ORDERED: INSDGIPEN SC (11:35)
[2017-10-11] MEDS ORDERED: NVLGI/PEN SC (11:35)
[2017-10-11] MEDS ORDERED: ACETAMINOPHEN 325 MG TAB PO STA (12:51)
--- NOTE | 2017-10-11 13:35 | DIAGNOSTIC IMAGING REPORT ---
L-SPINE MIN 4 VIEWS ROUTINE CLINICAL HISTORY: Low back pain status post trauma COMPARISON STUDY: February 02, 2011 FINDINGS: There are progressive multilevel degenerative changes. There are no acute fractures. There is a grade 1 spondylolisthesis of L4 on L5. This is felt to be degenerative. IMPRESSION: Progressive multilevel degenerative change. No acute fractures identified. Electronically signed by: Wilmer Green M.D. 10/11/2017 1:33 PM Dictated Date/Time: 10/11/2017 1:32 PM
--- NOTE | 2017-10-11 13:36 | DIAGNOSTIC IMAGING REPORT ---
R WRIST MIN 3 VIEWS ROUTINE CLINICAL HISTORY: Right wrist pain status post trauma COMPARISON: None. DISCUSSION: No acute fractures or dislocations are visualized. There are mild degenerative changes most pronounced at the level of the first carpal metacarpal joint. IMPRESSION: No fractures or dislocations identified. Electronically signed by: Wilmer Green M.D. 10/11/2017 1:35 PM Dictated Date/Time: 10/11/2017 1:34 PM
--- NOTE | 2017-10-11 13:36 | DIAGNOSTIC IMAGING REPORT ---
THORACIC SPINE 3 VIEWS ROUTINE CLINICAL HISTORY: 72 years-old Female presenting with fall; lower thoracic and upper lumbar pain. TECHNIQUE: 3 views of the thoracic spine were obtained. COMPARISON: None. FINDINGS: Normal thoracic kyphosis. No significant scoliosis. Vertebral bodies grossly maintained normal height and alignment. The cervicothoracic junction is suboptimally assessed secondary to overlapping osseous structures. Disc osteophyte complexes are noted at nearly every level. There is also suggestion of calcification within the intervertebral discs, likely degenerative in etiology. No compression deformity or subluxation. No gross evidence of osseous neural foraminal narrowing allowing for limited sensitivity of radiography. Atherosclerosis of the aortic arch. Partially visualized shoulder arthroplasty. IMPRESSION: 1. Multilevel degenerative changes of the thoracic spine. 2. No focal compression deformity to suggest acute osseous injury. Electronically signed by: Sandip Hensley M.D. 10/11/2017 1:35 PM Dictated Date/Time: 10/11/2017 1:32 PM
--- NOTE | 2017-10-11 13:40 | DIAGNOSTIC IMAGING REPORT ---
RIGHT HAND 3 VIEWS HISTORY: Fall. Right hand pain. COMPARISON: None. FINDINGS: There is no fracture or dislocation. Mild soft tissue swelling along the ulnar side of the wrist. Moderate to severe osteoarthritis within the DIP, PIP, and first carpometacarpal joints. Mild ulnar subluxation at the DIP joint of the index finger is likely chronic. Mild dorsal subluxation at the DIP joint of the small finger is also likely chronic. IMPRESSION: No acute fractures within the right hand. Moderate to severe osteoarthritis as described above. Electronically signed by: iNto Mckeon M.D. 10/11/2017 1:39 PM Dictated Date/Time: 10/11/2017 1:34 PM
--- NOTE | 2017-10-11 14:57 | DIAGNOSTIC IMAGING REPORT ---
CT HEAD WITHOUT CONTRAST (CT) CLINICAL HISTORY: Head pain status post trauma COMPARISON STUDY: 05/29/2016 TECHNIQUE: Axial CT of the brain is performed from the vertex to the skull base. IV contrast was not administered for this examination. A dose lowering technique was utilized adhering to the principles of ALARA. CT DOSE: 788.63 mGycm FINDINGS: No intra or extra-axial mass lesions are visualized. There is no CT evidence of acute cortical infarction. There is no evidence of midline shift. There is no acute hemorrhage. No calvarial fractures are visualized. There are patchy white matter hypodensities likely on a small vessel basis. There is no evidence of pathologic ventricular dilatation. There is no evidence of acute sinusitis. There is a right frontal and periorbital scalp hematoma. IMPRESSION: 1. Right frontal scalp hematoma 2. No evidence of acute intracranial injury Electronically signed by: Wilmer Green M.D. 10/11/2017 2:55 PM Dictated Date/Time: 10/11/2017 2:54 PM
[2017-10-11] MEDS ORDERED: IBUPROFEN 600 MG TAB PO STA (15:36)
[2017-10-11] MEDS ORDERED: XYLOCAINE 1%/SOD BICARB 20 ML VIAL INFIL ONE (15:45)
[2017-10-11 16:45] VITALS: BP 157/78; PULSE 79; O2SAT 98
--- NOTE | 2017-10-13 10:26 | EMERGENCY ROOM VISIT NOTE ---
ED Visit Note First contact with patient: 11:48 Chief Complaint: Fall. History of Present Illness: Ms. Rodriguez is a 72-year-old white female who ambulates into the ED accompanied by female friend for evaluation after a fall. Patient reports she woke up this morning and checked her blood sugar and it was 147. She reports she took her dog for a walk. During the walk she was stepping off a curb and does not remain members the specific events but she fell and struck her head on the sidewalk. She reports before the incident she was not experiencing any lightheadedness or dizziness, at the time of the fall she had no loss of consciousness. Patient reports since the fall she is having pain in the area of where she struck her head in the right frontal area and a global headache. She describes this headache as a combination of pressure and throbbing sensation. She rates her discomfort 10/10. Her pain is nonradiating. She has not identified any aggravating or alleviating factors related to the pain. She has not taken any medications for pain prior to arrival at the hospital. Associated with her headache she also reports she is having lower thoracic and upper lumbar pain, right hand and wrist pain. Currently she is reports her back pain is a deep achy sensation is located over the T10 through L3 area. She rates this discomfort 5/10. Her pain is nonradiating. Her pain worsens with palpation and flexion at the waist. She has not identified any alleviating factors related to the pain. Additionally she describes her wrist and hand pain as an achy sensation. She places this discomfort over the medial aspect of the wrist, hand and little finger. She does not rate this discomfort. She denies any dizziness, lightheadedness, visual changes, hearing changes, difficulty speaking, difficulty swallowing, difficulty ambulating/coordinating body movements, neck pain, chest pain, shortness of breath, abdominal pain, nausea, vomiting, extremity weakness/numbness/tingling. Review of Systems: As noted above in history of present illness. All body systems were reviewed and found to be negative as noted above. Past Medical History: Hypertension, diabetes, hypothyroidism, Current Medications: Lisinopril, Zoloft, trazodone, Januvia, Lipitor, aspirin, metformin, Synthroid, NovoLog, Lantus. Allergies to Medications: Patient denies. Social History: Patient is not employed; she feels safe in her home environment ; she denies tobacco and alcohol use. Tetanus Immunization Status: Patient believes it is up-to-date. Physical Examination: Vital Signs: Date Time Temp Pulse Resp B/P (MAP) Pulse Ox O2 Delivery O2 Flow Rate FiO2 10/11/17 16:45 79 17 157/78 98 10/11/17 14:16 52 20 97/65 100 Room Air 10/11/17 12:11 61 10/11/17 11:53 57 18 163/64 98 Room Air 10/11/17 11:27 37.1 57 12 189/74 98 Room Air GENERAL: 72-year-old female in mild distress due to pain, she is nontoxic- appearing, she is afebrile and hemodynamically stable. NEUROLOGICAL: Awake, alert and oriented to person, place and time; unable to recall year. Answering questions appropriately and following commands. Pronator drift test negative. Cranial nerves II through XII grossly intact. Has difficulty spelling or counting backwards. Romberg deferred. Good hand eye coordination. Good long-term recall but poor short-term recall. SKIN: Warm, dry and pink. No soft tissue eruptions or trauma noted. HEENT: Normocephalic. Skull: No bony deformity, crepitus, ecchymosis. Right- sided raccoons eye. No carroll signs. No drainage from the ears of the nares; no hemotympanum. Face: Large contusion over the right frontal area with ecchymosis in to the eyelids consistent with a raccoon eye. The contusion does have a superficial abrasion over it but there is no active bleeding. There is moderate tenderness but I do not appreciate any bony deformity or crepitus. PERRLA. EOMI without nystagmus. Sclera white but there does appear to be a forming subconjunctival hemorrhage over the lateral aspect of the sclera. Conjunctiva pink. No malocclusion. No intraoral trauma. Airway patent. Speech is normal and clear. Trachea midline. No jugular venous distention. BACK: No tenderness over the bony cervical spine and cervical paraspinous musculature. Range of motion of the cervical spine. Mild tenderness over the lower thoracic and upper lumbar bony spines without bony deformity, bony crepitus, swelling or ecchymosis. There is also mild tenderness in the same area in the para musculature without spasm. No CVA tenderness. THORAX: Lungs sounds are clear to auscultation and equal bilaterally with symmetrical chest wall. No wheezing, rales or rhonchi. No crepitus, tenderness , subcutaneous air or deformities noted. HEART: Regular rate and rhythm. No gallops, rubs or murmurs are appreciated. ABDOMEN: Flat, soft and nontender. Positive bowel sounds in all quadrants. No guarding, rigidity or organomegaly. PELVIS: Stable and nontender to compression and rock. UPPER EXTREMITIES: No gross bony deformity. No tenderness in the shoulders, elbows or forearms. Mild tenderness over the medial aspect of the right wrist and hand without bony deformity or crepitus. The right little finger does have a superficial laceration over the distal femoral necks and tip. No active bleeding. Patient has full range of motion in flexion and extension of the elbow, pronation and supination of forearm, flexion, extension and radial and ulnar deviation of the wrist. Throughout the hands skin was warm and pink and capillary refill was brisk. She was able to distinguish light sensations through all dermatomes of the lower arms and hands. LOWER EXTREMITIES: No gross bony deformity. No shortening or malrotation. No tenderness over the hips, thighs, knees, lower legs, ankles and feet. Distal pulses and capillary refill are intact. Lower extremities are intact to light sensation. ED Course: Patient is assessed as noted above. Patient's medication list was reviewed. Patient was initially given 650 mg of acetaminophen by mouth for her pain and then 600 mg of ibuprofen. Head CT: Was reviewed by myself and read by the radiologist showing a right frontal scalp hematoma with no evidence of acute intracranial injury or skull fractures. Thoracic Spine X-Rays: Were read by myself and the radiologist and shows multiple level degenerative changes but no focal compression deformity to suggest fracture. Lumbar Spine X-Rays: Were read by myself and the radiologist showing progressive multilevel degenerative changes but no acute fractures. Right Wrist X-Rays: Were read by myself and the radiologist showing no acute fractures or dislocations but with mild degenerative changes. Right Hand X-Rays: Were read by myself and the radiologist and shows no acute fractures or dislocations. 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 EKG: Was read by myself and reviewed with Dr. Cabrera; shows sinus bradycardia with a ventricular rate of 52 bpm. Normal axis, intervals and complexes. No signs of acute infarction. This was compared to a previous from December 2016 and no acute changes were noted. Patient's facial abrasion was cleansed with antibacterial soap and water and covered with a bacitracin dressing. Patient's finger laceration was cleansed with Betadine and water. Her superficial laceration was approximated with Steri-Strips and then a sterile bacitracin dressing was applied. Patient's case was reviewed with Dr. Cabrera; we agreed on diagnostic approach, treatment, disposition and plan. Patient and friend were educated about today's findings and instructed on her treatment plan; they verbalized understanding and agreement with this plan. Clinical Impression: Fall. Right frontal scalp contusion/abrasion. Right little finger superficial laceration. Disposition: Patient discharged to home in stable condition; prior to departure she was reassessed and subjectively reported she was feeling better and rated her overall discomfort 5/10. On last reevaluation she denies any signs of head injury except for her headache. Plan: Was encouraged that the patient alternate ibuprofen and acetaminophen every 3 hours for pain. Was encouraged that the patient use ice over areas of pain and swelling of her scalp. Patient was encouraged to clean her wounds clean with soap and water and watch for any signs of infection. Patient and family friend were educated on signs of head injury. Patient was encouraged to avoid alcohol for the next 48 hours as well as strenuous exercise. Patient was encouraged to follow-up with her PCP for recheck in 3-4 days or any signs of infections of her wounds. Patient was encouraged return the ED for any signs of infection, signs of worsening head injury or any new/concerning symptoms.
== END 2017-10-11 16:55 | disposition home or self-care (01) ==
LOC: EDBD 11:27 → C.EDC 11:29
DX: S00.03XA Contusion of scalp, initial encounter (principal); S61.216A Laceration without foreign body of right little finger without damage to nail, initial encounter; W10.1XXA Fall (on)(from) sidewalk curb, initial encounter; Y93.K1 Activity, walking an animal; I10 Essential (primary) hypertension; E11.9 Type 2 diabetes mellitus without complications; E03.9 Hypothyroidism, unspecified; Z79.82 Long term (current) use of aspirin; Z79.4 Long term (current) use of insulin; Z79.899 Other long term (current) drug therapy

== ENCOUNTER 2018-12-16 09:11 | Inpatient (IN) ==
--- OUTSIDE RECORDS SUMMARY | 2018-12-16 09:14 | External Medical Summary | Continuity of Care Document ---
:1945 Author Name Marshall Biggs Address Unavailable Unavailable , Care Team Providers Name Role Phone Mallory DO Unavailable [email or web address] [email or web address], UNKNOWN Unavailable Unavailable Problems Active medical history not documented Allergies and Adverse Reactions Allergy history not documented Medications Medications not documented Procedures Procedures not documented Immunizations Immunizations not documented Plan of Treatment Planned Observations Planned Goals not documented Results No Known Results Results not documented
[2018-12-16] MEDS ORDERED: SODIUM CHLORIDE 0.9% 1000ML 1,000 ML IV SCH (10:00)
--- NOTE | 2018-12-16 10:31 | XRay Report ---
SINGLE VIEW CHEST CLINICAL HISTORY: Syncope. FINDINGS: An AP, portable, upright chest radiograph is compared to study dated 01/14/2017. The examina tion is degraded by portable technique and patient rotation. The cardiomediastinal silhouette is unr emarkable noting atherosclerotic calcification of the thoracic aorta. Chronic interstitial thickening is similar to previous. There is mild bibasilar atelectasis. No airspace consolidation or large pleu ral effusion is identified. No pneumothorax is seen. The skeletal structures are osteopenic. The bony thorax is grossly intact. Arthritic change is noted in the left shoulder and thoracic spine. A right shoulder arthroplasty is in place. IMPRESSION: No active disease in the chest. Electronically signed by: Duncan Antonio M.D. 12/16/2018 10:30 AM
[2018-12-16 10:47] LABS: Basophils # (auto) 0.02 K/uL (0-0.2); Basophils % (auto) 0.3 %; Eosinophils # (auto) 0.03 K/uL (0-0.5); Eosinophils % (auto) 0.5 %; Hematocrit (blood only) 35.1 % (37-47); Hemoglobin 11.3 g/dL (12.0-16.0); Immature Granulocytes # (auto) 0.01 K/uL (0.00-0.02); Immature Granulocytes % (auto) 0.2 %; Lymphocytes # (auto) 1.22 K/uL (1.2-3.4); Lymphocytes % (auto) 18.7 %; Mean Corpuscular Hgb Conc 32.2 g/dL (32-36); Mean Corpuscular Volume 84.2 fL (80-100); Mean Platelet Volume 9.1 fL (7.4-10.4); Monocytes # (auto) 0.27 K/uL (0.11-0.59); Monocytes % (auto) 4.1 %; Neutrophils # (auto) 4.97 K/uL (1.4-6.5); Neutrophils % (auto) 76.2 %; Platelet Count 223 K/uL (130-400); RDW Standard Deviation 45.9 fL (36.4-46.3); Red Blood Count 4.17 M/uL (4.2-5.4); White Blood Count 6.52 K/uL (4.8-10.8)
[2018-12-16 10:58] LABS: Partial Thromboplastin Ratio 0.9; Partial Thromboplastin Time 24.2 Seconds (21.0-31.0); Prothrombin Time 10.4 Seconds (9.0-12.0)
[2018-12-16 11:06] LABS: Alanine Aminotransferase 18 U/L (12-78); Albumin Level 3.5 gm/dl (3.4-5.0); Aspartate Aminotransferase 16 U/L (15-37); BUN Creatinine Ratio 14.6 (10-20); Blood Urea Nitrogen 16 mg/dl (7-18); Calcium 8.9 mg/dl (8.5-10.1); Carbon Dioxide 28 mmol/L (21-32); Chloride 105 mmol/L (98-107); Creatinine Clr Calc Pharmacy 49.7 ml/min; Est GFR (African American) 56.4; Est GFR (Non-African American) 48.7; Glucose 190 mg/dl (70-99); Magnesium 1.5 mg/dl (1.8-2.4); Potassium 4.5 mmol/L (3.5-5.1); Sodium 138 mmol/L (136-145)
[2018-12-16] MEDS ORDERED: MAGNESIUM OXIDE 400 MG TAB PO STA (11:09)
[2018-12-16 11:17] LABS: Alkaline Phosphatase 90 U/L (45-117); Bilirubin,Total 0.3 mg/dl (0.2-1); Globulin 3.6 gm/dl (2.5-4.0); Phosphorus 3.8 mg/dl (2.5-4.9); Total Protein 7.1 gm/dl (6.4-8.2); Troponin I < 0.015 ng/ml (0-0.045)
--- NOTE | 2018-12-16 13:02 | History & Physical Report ---
Date of Service December 16, 2018 Assessment & Plan (1) Syncope: Present on admission after she had an episode syncope lasted 30 seconds Need to r/o cardiac etiology since pt had 2 episodes of bradycardia in the ER Possible related to Vasovagal Denies any focal neuro deficit Will check for orthostatic Will monitor in tele Check troponin and echo (2) Hypomagnesemia: Mg on admission 1.5 Mg replaced Monitor Mg level (3) Bradycardia: has been feeling dizzy lately Had 2 episodes of bradycardia on admission EKG showed NSR with HR in the 63 Will monitor in tele (4) Dizziness: Possible related to post nasal drip/chronic rhinitis Fall precaution Will check for orthostatic vital Continue monitor (5) Major depression: Continue zoloft 150mg daily Stable (6) Diabetes mellitus: Most recent Hba1c 7.3 on 10/10 Will hold oral diabetes med Continue Insulin glargine Will add insulin sliding scale Monitor BS DVT px on heparin subq Code status Full code (7) Hypertension: BP elevated possible related to hospital setting Continue lisinopril Consider to increase lisinopril to 20mg if BP not at goal Continue monitor BP History of Present Illness Chief Complaint: Syncope Primary Care Provider: Carmelo Cole MD 73 y/o female with PMH of DM, depression, Dyslipidemia, hypothyroidism, CKD stage 3, chronic rhinitis, HTN was brought to the ER for near syncope episode. Pt said that this morning while walking, she felt dizzy. Her appraiser oil and water was behind her and caught her and lay her down on the ground. Caregiver said that pt passed out and eyes closed for about 30sec. Caregiver said that after 30sec, pt opened her eyes and was talking. She said that she checked her BS and it was running in the 175. Service Crew Leader said that during the syncopal episode, pt did not experience any seizure like activity, no bladder or bowel loss, confusion or slurred speech. Service Crew Leader said for the last few days, pt has been feeling dizzy. Pt said that her dizziness worsening when standing. she said that she does not feel the room is spinning. Pt said that she was recently treated with Augmentin for URI and completed the course of abx. Pt said that she feels a pressure in her left ear. Pt said that she had diarrhea that improved now. In the ER her heart rate dropped in the 30-40's in 2 occasions. denies any chest pain, palpitation, dizziness, dysuria, fever, weakness and SOB. Allergies Allergy/AdvReac Type Severity Reaction Status Date / Time No Known Allergies Allergy Unknown Verified 12/16/18 11:00 Home Medications Home Medications Medication Instructions Recorded Confirmed Type aspirin 81 mg PO QAM 12/16/18 12/16/18 History atorvastatin 80 mg PO HS 12/16/18 12/16/18 History insulin glargine [Basaglar KwikPen 24 unit SUBCUT QA 12/16/18 12/16/18 History U-100 Insulin] levothyroxine 150 mcg PO QAM 12/16/18 12/16/18 History lisinopril 10 mg PO QAM 12/16/18 12/16/18 History metformin 1,000 mg PO BID 12/16/18 12/16/18 History omeprazole 20 mg PO QAM 12/16/18 12/16/18 History sertraline 150 mg PO QAM 12/16/18 12/16/18 History sitagliptin [Januvia] 100 mg PO QAM 12/16/18 12/16/18 History trazodone 100 mg PO HS 12/16/18 12/16/18 History Past Med/Surg History Medical History URI (upper respiratory infection) Patent foramen ovale (Chronic Unknown) Major depression (Chronic) 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) Syncope Chest pain Hyperglycemia due to type 2 diabetes mellitus Surgical History History of appendectomy (Resolved) H/O: hysterectomy (Resolved) S/P thyroidectomy (Chronic) H/O total shoulder replacement (Chronic) "right shoulder" S/p total knee replacement, bilateral (Chronic) Family History Other No pertinent family history Social History Preferred Language: Setswana Communication Ability: Effective Visual Impairment: No Limitations Hearing Ability: Normal Provider Relations Consultant Required: No Beliefs That Will Affect Care: None Current Living Situation: Alone Current Living Situation Comment: own apt in living facility-home checks from [facility] Other Information That Helps Us Care for You: No Feels Safe at Home: Yes Safety Concerns: Feels Safe At This Time Smoking Status: Never smoker Do You Dip or Chew Tobacco: No Hx Alcohol Use: No Hx Substance Use: No Review of Systems Review of Systems: All systems reviewed & are unremarkable except as noted in HPI & below Physical Exam Physical Exam: General- No acute distress Head- atraumatic Eyes- PERRL, EOMI, ENT- oropharynx clear, no tonsils exudate, no redness or pus in both ears canal Neck- supple, no JVD Lungs- clear to auscultation Heart- regular rhythm; +systolic murmur Abdomen- normal bowel sounds, soft, nontender Extremities- no calf tenderness Neuro- alert, oriented x 3; PERRL, EOMI; no facial palsy; no dysarthria Skin- warm & dry Results & Data Vital Signs (Past 12 Hours) Vital Signs Temp Pulse Pulse Resp BP BP Pulse Ox 12/16/18 12:05 95 H 18 141/84 H 95 12/16/18 10:25 99 12/16/18 10:23 65 16 178/39 H 95 12/16/18 09:36 36.8 C 63 16 140/60 96 Diagnostic Findings SINGLE VIEW CHEST CLINICAL HISTORY: Syncope. FINDINGS: An AP, portable, upright chest radiograph is compared to study dated 01/14/2017. The examination is degraded by portable technique and patient rotation. The cardiomediastinal silhouette is unremarkable noting atherosclerotic calcification of the thoracic aorta. Chronic interstitial thickening is similar to previous. There is mild bibasilar atelectasis. No airspace consolidation or large pleural effusion is identified. No pneumothorax is seen. The skeletal structures are osteopenic. The bony thorax is grossly intact. Arthritic change is noted in the left shoulder and thoracic spine. A right shoulder arthroplasty is in place. IMPRESSION: No active disease in the chest. Electronically signed by: Duncan Antonio M.D. 12/16/2018 10:30 AM Dictated: 12/16/18 1029 Transcribed: 12/16/18 1029 (1) Syncope Syncope type: unspecified Qualified Code(s): R55 - Syncope and collapse
[2018-12-16] MEDS ORDERED: CARBOHYDRATES FOR HYPOGLYCEMIA PO PRN (13:47)
[2018-12-16] MEDS ORDERED: DEXTROSE 50% 50 ML SYRINGE IV PRN (13:47)
[2018-12-16] MEDS ORDERED: GLUCOSE 40% GEL 15 GM TUBE PO PRN (13:47)
[2018-12-16] MEDS ORDERED: GLUCOSE 10 TABS/TUBE PO PRN (13:47)
[2018-12-16] MEDS ORDERED: GLUCAGON FOR INJ 1 MG VIAL SQ PRN (13:47)
[2018-12-16 14:42] LABS: Calcium 8.5 mg/dl (8.5-10.1); Creatinine Clr Calc Pharmacy 54.5 ml/min; Est GFR (African American) 63.2; Est GFR (Non-African American) 54.5; Potassium 4.9 mmol/L (3.5-5.1)
--- NOTE | 2018-12-16 16:59 | Cardiology Consultation ---
Date of Consultation December 16, 2018 Assessment & Plan (1) Syncope: Witnessed event at home lasting approximately 30 seconds of uncertain etiology. No post event residual. Episode occurred in bedroom and bathroom question increased vagal tone etiology. EKG normal Plan maintain telemetry No AV node blocking drugs Echocardiogram will be reviewed to assess valve structures (2) Bradycardia: Transient sinus bradycardia only noted initially. Will maintain telemetry (3) Murmur: Echo pending (4) S/P thyroidectomy: On thyroid replaced History of Present Illness Reason for Consultation: Syncope Requesting Physician: Dr. Stanton Attending Physician: David Stanton MD History of Present Illness Patient is a 73-year-old female who carries a history of past heart murmur and possible rheumatic fever as a child but no other prior history of cardiac disease. Underlying issues include diabetes mellitus hyperlipidemia hypertension on treatment. Dyslipidemia on treatment Patient today while while in her home and with routine caregiver I will collapsed losing consciousness for approximately 30 seconds as a witnessed event. Patient continued to have respiratory efforts per report and recovered spontaneously. No loss of bowel or bladder continence patient felt "fuzzy afterwards" but no acute chest pains or discomfort. Has not been aware of any tachypalpitations syncope or near syncope Denies fevers chills unexplained infections notes no melena hematochezia dysuria hematuria. She is active about her home to low-level degree walks her dog daily, goes to the grocery store etc. without specific limitation. Notes no acute weight loss or gain notes no change in appetite or sleep habits. She denies history of prior TIA or stroke, seizure disorder discomfort no headaches or visual changes Has had long-standing murmur with anticipated echocardiogram Telemetry in the emergency room demonstrated gradual slowing in sinus bradycard ia to heart rate of 32 lasting approximately 2 to 3 seconds on 2 occasions. No pauses or AV block Allergies Allergy/AdvReac Type Severity Reaction Status Date / Time No Known Allergies Allergy Unknown Verified 12/16/18 11:00 Home Medications Home Medications Medication Instructions Recorded Confirmed Type aspirin 81 mg PO QAM 12/16/18 12/16/18 History atorvastatin 80 mg PO HS 12/16/18 12/16/18 History insulin glargine [Basaglar KwikPen 24 unit SUBCUT QAM 12/16/18 12/16/18 History U-100 Insulin] levothyroxine 150 mcg PO QAM 12/16/18 12/16/18 History lisinopril 10 mg PO QAM 12/16/18 12/16/18 History metformin 1,000 mg PO BID 12/16/18 12/16/18 History omeprazole 20 mg PO QAM 12/16/18 12/16/18 History sertraline 150 mg PO QAM 12/16/18 12/16/18 History sitagliptin [Januvia] 100 mg PO QAM 12/16/18 12/16/18 History trazodone 100 mg PO HS 12/16/18 12/16/18 History Patient History Medical History URI (upper respiratory infection) Patent foramen ovale (Chronic Unknown) Major depression (Chronic) 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) Syncope Chest pain Hyperglycemia due to type 2 diabetes mellitus Surgical History History of appendectomy (Resolved) H/O: hysterectomy (Resolved) S/P thyroidectomy (Chronic) H/O total shoulder replacement (Chronic) "right shoulder" S/p total knee replacement, bilateral (Chronic) Family History Other No pertinent family history Social History Preferred Language: Armenian Communication Ability: Effective Visual Impairment: No Limitations Hearing Ability: Normal Elderly Companion Required: No Beliefs That Will Affect Care: None Current Living Situation: Alone Current Living Situation Comment: own apt in living facility-home checks from [facility] Other Information That Helps Us Care for You: No Feels Safe at Home: Yes Safety Concerns: Feels Safe At This Time Smoking Status: Never smoker Do You Dip or Chew Tobacco: No Hx Alcohol Use: No Hx Substance Use: No Review of Systems Review of Systems: All systems reviewed & are unremarkable except as noted in HPI & below Physical Exam Constitutional: WD/WN, vitals as above + obese Eyes: PERRL, conjunctivae normal, anicteric sclerae ENMT: external ear and nose normal, oropharynx normal Dentures in place Neck: trachea midline, no thyromegaly Respiratory: normal respiratory effort, lungs clear to auscultation Cardiovascular: Rate/Rhythm: regular rate and regular rhythm Heart Sounds: normal S1, normal S2 and + murmur (Grade 3/6 systolic murmur right upper sternal border no diastolic murmur); no gallop Vessels: femoral pulses present; no JVD, no carotid bruit and no femoral bruit Extremities: normal capillary refill; no edema Gastrointestinal (Abdomen): normal bowel sounds, soft, nontender, no hepatosplenomegaly Musculoskeletal: no cyanosis or clubbing, extremities motor strength 5/5 Skin: no rashes, warm and dry Results & Data Vital Signs (Past 12 Hours) Vital Signs Temp Pulse Pulse Pulse Resp BP BP 12/16/18 15:31 36.7 C 63 19 159/59 H 12/16/18 13:53 36.8 C 55 L 18 185/62 H 12/16/18 13:29 62 18 167/95 H 12/16/18 12:05 95 H 18 141/84 H 12/16/18 10:25 12/16/18 10:23 65 16 178/39 H 12/16/18 09:36 36.8 C 63 16 140/60 Pulse Ox 12/16/18 15:31 98 12/16/18 13:53 95 12/16/18 13:29 98 12/16/18 12:05 95 12/16/18 10:25 99 12/16/18 10:23 95 12/16/18 09:36 96 Laboratory Results Laboratory Results - last 24 hr 12/16/18 12/16/18 12/16/18 10:36 10:36 10:36 WBC 6.52 RBC 4.17 L Hgb 11.3 L Hct 35.1 L MCV 84.2 MCH 27.1 MCHC 32.2 RDW Std Deviation 45.9 RDW Coeff of Sunitha 15.0 H Plt Count 223 MPV 9.1 Immature Gran % (Auto) 0.2 Neut % (Auto) 76.2 Lymph % (Auto) 18.7 Hettinger % (Auto) 4.1 Eos % (Auto) 0.5 Baso % (Auto) 0.3 Immature Gran # (Auto) 0.01 Neut # (Auto) 4.97 Lymph # (Auto) 1.22 Hettinger # (Auto) 0.27 Eos # (Auto) 0.03 Baso # (Auto) 0.02 PT 10.4 INR 1.0 APTT 24.2 PTT Ratio 0.9 Sodium 138 Potassium 4.5 Chloride 105 Carbon Dioxide 28 Anion Gap 5.0 BUN 16 Creatinine 1.12 Est Cr Clr Drug Dosing 49.7 Est GFR ( Amer) 56.4 Est GFR (Non-Af Amer) 48.7 BUN/Creatinine Ratio 14.6 Glucose 190 H POC Glucose Calcium 8.9 Phosphorus 3.8 Magnesium 1.5 L Total Bilirubin 0.3 AST 16 ALT 18 Alkaline Phosphatase 90 Troponin I < 0.015 Total Protein 7.1 Albumin 3.5 Globulin 3.6 Albumin/Globulin Ratio 1.0 TSH 0.378 12/16/18 12/16/18 13:53 16:29 WBC RBC Hgb Hct MCV MCH MCHC RDW Std Deviation RDW Coeff of Sunitha Plt Count MPV Immature Gran % (Auto) Neut % (Auto) Lymph % (Auto) Hettinger % (Auto) Eos % (Auto) Baso % (Auto) Immature Gran # (Auto) Neut # (Auto) Lymph # (Auto) Hettinger # (Auto) Eos # (Auto) Baso # (Auto) PT INR APTT PTT Ratio Sodium 140 Potassium 4.9 Chloride 108 H Carbon Dioxide 28 Anion Gap 4.0 BUN 15 Creatinine 1.02 Est Cr Clr Drug Dosing 54.5 Est GFR ( Amer) 63.2 Est GFR (Non-Af Amer) 54.5 BUN/Creatinine Ratio 15.0 Glucose 195 H POC Glucose 257 H Calcium 8.5 Phosphorus Magnesium Total Bilirubin AST ALT Alkaline Phosphatase Troponin I Total Protein Albumin Globulin Albumin/Globulin Ratio TSH ECG Additional Comments: 16-DEC-2018 09:20:48 [facility]-EDSTAT ROUTINE RETRIEVAL Normal sinus rhythm Normal ECG When compared with ECG of 11-OCT-2017 12:59, No significant change was found Confirmed by Chilango Chong ([id number]) on 12/16/2018 4:48:48 PM heart rate 63 bpm (1) Syncope Syncope type: unspecified Qualified Code(s): R55 - Syncope and collapse
[2018-12-16] MEDS: INSULIN ASPART 100 UNITS/ML 3 ML PEN SC SCH ×2 (17:10→20:53)
--- NOTE | 2018-12-16 17:29 | Emergency Department Note ---
Entered by Ivone Coe acting as a scribe for Jair Cabrera MD History of Present Illness General Chief complaint: Syncope (Near Syncope) Time Seen by Provider: 12/16/18 09:34 Source: patient and other (Home help nurse) Mode of arrival: EMS Limitations: no limitations History of Present Illness Onset (ago): hour(s) (this morning) Location: head (syncope) Pain Consistency: + other (episode) Quality: + other (syncope) Associated symptoms: + syncope; no chest pain, no nausea/vomiting and no shortness of breath The patient is a 73 white female w/ PMHx URI, ear infection, major depression, type 2 diabetes, appendectomy, hysterectomy, thyroidectomy, total shoulder replacement, and total knee replacement who presents to the ED via EMS w/ CC of an episode of syncope beginning this morning. The patient presents with her home help nurse. Per nurse, she was standing behind the patient in a narrow hallway when she reached out to the wall and started to fall over. She states that she grabbed the patient and helped lower her to the floor. Per nurse, the patient lost consciousness for 15 seconds. The patient states that she does not remember if she felt dizzy, short of breath, or chest pain prior to the episode of syncope. The patient denies current chest pain, shortness of breath, nausea, and vomiting. Per nurse, the patient finished a course of Augmentin yesterday for a URI. Home Medications Home Medications Medication Instructions Recorded Confirmed Type aspirin 81 mg PO QAM 12/16/18 12/16/18 History atorvastatin 80 mg PO HS 12/16/18 12/16/18 History insulin glargine [Basaglar KwikPen 24 unit SUBCUT QA 12/16/18 12/16/18 History U-100 Insulin] levothyroxine 150 mcg PO QAM 12/16/18 12/16/18 History lisinopril 10 mg PO QAM 12/16/18 12/16/18 History metformin 1,000 mg PO BID 12/16/18 12/16/18 History omeprazole 20 mg PO QAM 12/16/18 12/16/18 History sertraline 150 mg PO QAM 12/16/18 12/16/18 History sitagliptin [Januvia] 100 mg PO QAM 12/16/18 12/16/18 History trazodone 100 mg PO HS 12/16/18 12/16/18 History Allergies Allergy/AdvReac Type Severity Reaction Status Date / Time No Known Allergies Allergy Unknown Verified 12/16/18 11:00 Past Med/Surg History Medical History URI (upper respiratory infection) Patent foramen ovale (Chronic Unknown) Major depression (Chronic) 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) Syncope Chest pain Hyperglycemia due to type 2 diabetes mellitus Surgical History History of appendectomy (Resolved) H/O: hysterectomy (Resolved) S/P thyroidectomy (Chronic) H/O total shoulder replacement (Chronic) "right shoulder" S/p total knee replacement, bilateral (Chronic) Family History Other No pertinent family history Social History Preferred Language: Marshallese Communication Ability: Effective Visual Impairment: No Limitations Hearing Ability: Normal Vending Supervisor Required: No Beliefs That Will Affect Care: None Current Living Situation: Alone Current Living Situation Comment: own apt in living facility-home checks from [facility] Other Information That Helps Us Care for You: No Feels Safe at Home: Yes Safety Concerns: Feels Safe At This Time Smoking Status: Never smoker Do You Dip or Chew Tobacco: No Hx Alcohol Use: No Hx Substance Use: No Review of Systems See HPI for pertinent positives & negatives. and A total of 10 systems reviewed and were otherwise negative Physical Exam Vital Signs Vital Signs - 24 hr 12/16/18 09:36 12/16/18 10:23 12/16/18 10:25 Temperature 36.8 C Temperature Source Oral Sepsis Recent Fever Within 48 Hours No Sepsis Action Taken by Nursing No Action Required Pulse Rate 63 Pulse Rate [Apical] 65 Respiratory Rate 16 16 Respiratory Effort / Characteristics Non-Labored Respiratory Depth Normal Blood Pressure - Lying Blood Pressure - Sitting Blood Pressure- Standing Blood Pressure 140/60 Blood Pressure [Left Radial Artery] 178/39 H Blood Pressure Mean 86 Blood Pressure Mean [Left Radial Artery] 85 Pulse Oximetry 96 95 99 Oxygen Delivery Method Room Air Room Air 12/16/18 10:28 12/16/18 12:05 12/16/18 12:14 Temperature Temperature Source Sepsis Recent Fever Within 48 Hours Sepsis Action Taken by Nursing Pulse Rate Pulse Rate [Apical] 95 H Respiratory Rate 18 Respiratory Effort / Characteristics Respiratory Depth Blood Pressure - Lying 151/56 H Blood Pressure - Sitting 149/48 H Blood Pressure- Standing 134/68 Blood Pressure Blood Pressure [Left Radial Artery] 141/84 H Blood Pressure Mean Blood Pressure Mean [Left Radial Artery] 103 Pulse Oximetry 95 Oxygen Delivery Method Room Air GENERAL: Well appearing, well nourished, NAD, non-toxic. EYE EXAM: Normal conjunctiva. PERRL, no anisocoria and EOM's grossly intact w/o pain. OROPHARYNX: Moist mucus membranes. Grossly normal dentition. NECK: Supple, no nuchal rigidity, no adenopathy, non-tender. no signs of meningismus. LUNGS: Clear to auscultation. Normal chest wall mechanics. HEART: NSR. Trace systolic ejection murmur. ABDOMEN: Abdomen soft, non-tender, normo-active bowel sounds, no masses, no rebound or guarding. BACK: No CVA TTP. SKIN: No rashes and no bruising. UPPER EXTREMITIES: Upper extremities are grossly normal. LOWER EXTREMITIES: No pitting edema. No calf pain. NEURO EXAM: A&O x3, cranial nerves II-XII grossly intact, normal speech, moves all 4 extremities on command w/o issue. Course 0940: Past medical records reviewed. The patient was evaluated in room B11B. A complete history and physical examination was performed. 1128: I reviewed the patient's case with Dr. Verónica Sparks. He will evaluate the patient for further management. Consultations Consultation #1: [id number]: I reviewed the patient's case with Dr. Verónica Sparks. He will evaluate the patient for further management. Administered Medications Insulin Aspart (Novolog Flexpen) 0 units SC ACHS [facility] Stop: 01/15/19 16:29 Last Admin: 12/16/18 17:10 Dose: 4 units Documented by: [id number] Cosigned by: [id number] Discontinued Medications Sodium Chloride (Nss 1000ml) 1,000 mls @ 999 mls/hr IV .Q1H1M STACY Stop: 12/16/18 11:00 Last Infusion: 12/16/18 11:49 Dose: 0 mls/hr Documented by: [id number] Admin: 12/16/18 10:46 Dose: 999 mls/hr Documented by: [id number] Magnesium Oxide (Mag-Ox) 800 mg PO NOW STA Stop: 12/16/18 11:10 Last Admin: 12/16/18 11:30 Dose: 800 mg Documented by: [id number] Medical Decision Making Differential Diagnosis Differential diagnosis Vasovagal event, infection, hypoglycemia, electrolyte abnormalities, cardiac sources, intracerebral event, toxicologic, neurologic, as well as others etiologies were entertained. Medical Records Attestation: I reviewed the patient's medical records. Home Medications Current Medication List: was personally reviewed by me Laboratory Data Attestation: I reviewed the patient's lab results. Result diagrams: 12/16/18 10:36 12/16/18 13:53 Lab Results 12/16/18 12/16/18 12/16/18 Range/Units 10:36 10:36 10:36 WBC 6.52 (4.8-10.8) K/uL RBC 4.17 L (4.2-5.4) M/uL Hgb 11.3 L (12.0-16.0) g/dL Hct 35.1 L (37-47) % MCV 84.2 (80-100) fL MCH 27.1 (25-34) pg MCHC 32.2 (32-36) g/dL RDW Std Deviation 45.9 (36.4-46.3) fL RDW Coeff of Sunitha 15.0 H (11.5-14.5) % Plt Count 223 (130-400) K/uL MPV 9.1 (7.4-10.4) fL Immature Gran % (Auto) 0.2 % Neut % (Auto) 76.2 % Lymph % (Auto) 18.7 % [place] % (Auto) 4.1 % Eos % (Auto) 0.5 % Baso % (Auto) 0.3 % Immature Gran # (Auto) 0.01 (0.00-0.02) K/uL Neut # (Auto) 4.97 (1.4-6.5) K/uL Lymph # (Auto) 1.22 (1.2-3.4) K/uL [place] # (Auto) 0.27 (0.11-0.59) K/uL Eos # (Auto) 0.03 (0-0.5) K/uL Baso # (Auto) 0.02 (0-0.2) K/uL PT 10.4 (9.0-12.0) Seconds INR 1.0 (0.9-1.1) APTT 24.2 (21.0-31.0) Seconds PTT Ratio 0.9 Sodium 138 (136-145) mmol/L Potassium 4.5 (3.5-5.1) mmol/L Chloride 105 (98-107) mmol/L Carbon Dioxide 28 (21-32) mmol/L Anion Gap 5.0 (3-11) BUN 16 (7-18) mg/dl Creatinine 1.12 (0.6-1.2) mg/dl Est Cr Clr Drug Dosing 49.7 ml/min Est GFR ( Amer) 56.4 Est GFR (Non-Af Amer) 48.7 BUN/Creatinine Ratio 14.6 (10-20) Glucose 190 H (70-99) mg/dl Calcium 8.9 (8.5-10.1) mg/dl Phosphorus 3.8 (2.5-4.9) mg/dl Magnesium 1.5 L (1.8-2.4) mg/dl Total Bilirubin 0.3 (0.2-1) mg/dl AST 16 (15-37) U/L ALT 18 (12-78) U/L Alkaline Phosphatase 90 (45-117) U/L Troponin I < 0.015 (0-0.045) ng/ml Total Protein 7.1 (6.4-8.2) gm/dl Albumin 3.5 (3.4-5.0) gm/dl Globulin 3.6 (2.5-4.0) gm/dl Albumin/Globulin Ratio 1.0 (0.9-2) TSH 0.378 (0.300-4.500) uIu/ml Imaging Data Radiologist's Impression: Radiology results as stated below per my review and the radiologist's interpretation: SINGLE VIEW CHEST CLINICAL HISTORY: Syncope. FINDINGS: An AP, portable, upright chest radiograph is compared to study dated 01/14/2017. The examination is degraded by portable technique and patient rotation. The cardiomediastinal silhouette is unremarkable noting atherosclerotic calcification of the thoracic aorta. Chronic interstitial thick ening is similar to previous. There is mild bibasilar atelectasis. No airspace consolidation or large pleural effusion is identified. No pneumothorax is seen. The skeletal structures are osteopenic. The bony thorax is grossly intact. Arthritic change is noted in the left shoulder and thoracic spine. A right shoulder arthroplasty is in place. IMPRESSION: No active disease in the chest. Electronically signed by: Duncan Antonio M.D. 12/16/2018 10:30 AM Dictated: 12/16/18 1029 Transcribed: 12/16/18 1029 ECG Data Attestation: I personally reviewed and interpreted this ECG as follows: Indication: syncope Rate (beats per minute): 63 Rhythm: normal sinus Findings: + other (normal intervals, normal axis) and + T-wave inversion (lead 2) Blood Pressure Blood Pressure Findings: Elevated blood pressure Blood Pressure Disposition: further management by hospitalist MDM Narrative The patient is a 73 white female w/ PMHx URI, ear infection, major depression, type 2 diabetes, appendectomy, hysterectomy thyroidectomy, total shoulder replacement, and total knee replacement who presents to the ED via EMS w/ CC of an episode of syncope beginning this morning. Patient was seen and evaluated the bedside. The patient did have an episode of syncope for approximately 15 to 20 seconds. The patient denies feeling hot sweaty nauseous chest pains or shortness of breath. The patient denies a rapid heart rate or skipping a beat. The patient did not have any tongue biting or incontinence. The patient did a blood work completed along with an EKG. The patient did have an episode of bradycardia here in the department down into the 40s. This may have precipitated her syncopal event. Patient did have another episode of bradycardia but her blood pressure was maintained. Of note the patient does not take any rate control medications. Patient's blood work shows mild anemia but normal white count. Patient has fairly normal kidney function. Glucose is slightly elevated. Troponin is not detectable. I did speak with the on-call hospitalist agreed to further evaluate treat the patient. The patient did have some mild low magnesium which was repleted by mouth. The patient had been given IV fluids given the concern for her syncope. Impression & Plan Symptomatic bradycardia, Syncope, Hypomagnesemia Discharge Plan Visit Data *Final* Discharge Date/Time: 12/16/18 13:58 Chief Complaint: Syncope (Near Syncope) ED Provider: Jair Cabrera Discharge Problem: Symptomatic bradycardia, Syncope, Hypomagnesemia Patient Disposition: Admitted As Inpatient Discharge Instructions Interventions: ED Discharge Assessment Last Done: 12/16/18 13:58 Discharge Problem: Syncope Qualifiers: Syncope type: unspecified Qualified Code(s): R55 - Syncope and collapse The scribe's documentation has been prepared under my direction and personally reviewed by me in its entirety. I confirm that the note above accurately reflects all work, treatment, procedures, and medical decision making performed by me.
[2018-12-16 17:41] LABS: Magnesium 1.6 mg/dl (1.8-2.4); Troponin I < 0.015 ng/ml (0-0.045)
[2018-12-16] MEDS: ATORVASTATIN 40 MG TAB PO SCH (20:52)
[2018-12-16] MEDS: MAGNESIUM OXIDE 400 MG TAB PO SCH (20:52)
[2018-12-16] MEDS: HEPARIN SOD 5,000 UNIT/0.5 ML VIAL SQ SCH (20:55)
[2018-12-16] MEDS: TRAZODONE HCL 50 MG TAB PO SCH (22:00)
[2018-12-17] MEDS: LEVOTHYROXINE SODIUM 150 MCG TABLET PO SCH (05:33)
[2018-12-17] MEDS: HEPARIN SOD 5,000 UNIT/0.5 ML VIAL SQ SCH ×3 (05:33→21:06)
[2018-12-17] MEDS: INSULIN ASPART 100 UNITS/ML 3 ML PEN SC SCH ×4 (09:16→21:05)
--- NOTE | 2018-12-17 09:51 | Cardiology Progress Note ---
Date of Service December 17, 2018 Assessment & Plan (1) Syncope: Witnessed event at home lasting approximately 30 seconds of uncertain etiology. No post event residual. Episode occurred in bedroom and bathroom question increased vagal tone etiology. EKG normal Echocardiogram without significant structural abnormality. Telemetry demonstrates evidence of sick sinus syndrome with marked bradycardia intermittently Patient currently asymptomatic we will keep n.p.o. Dissipate permanent pacemaker insertion (2) Bradycardia: Transient sinus bradycardia only noted initially. Will maintain telemetry as above telemetry demonstrating evidence of sick sinus syndrome in association with recent syncope (3) Murmur: Echocardiogram demonstrates borderline left appropriately with normal left systolic function aortic sclerosis without stenosis (4) S/P thyroidectomy: On thyroid replaced Subjective Patient seen and examined, chart, telemetry, medications reviewed. Patient denies any symptoms notes no abdominal pain or discomfort no dizziness or lightheadedness. Telemetry did demonstrate several episodes of marked sinus bradycardia, sinus arrest Physical Exam Constitutional: WD/WN, vitals as above + obese Eyes: PERRL, conjunctivae normal, anicteric sclerae ENMT: external ear and nose normal, oropharynx normal Neck: trachea midline, no thyromegaly Respiratory: normal respiratory effort, lungs clear to auscultation Cardiovascular: Rate/Rhythm: regular rate and regular rhythm Heart Sounds: normal S1, normal S2 and + murmur (Grade 3/6 systolic murmur right upper sternal border no diastolic murmur); no gallop Vessels: femoral pulses present; no JVD, no carotid bruit and no femoral bruit Extremities: normal capillary refill; no edema Gastrointestinal (Abdomen): normal bowel sounds, soft, nontender, no hepatosplenomegaly Musculoskeletal: no cyanosis or clubbing, extremities motor strength 5/5 Skin: no rashes, warm and dry Results & Data Vital Signs (Past 12 Hours) Vital Signs Temp Pulse Resp BP Pulse Ox 12/17/18 07:01 36.7 C 54 L 16 151/84 H 98 12/17/18 03:14 37.0 C 56 L 16 141/80 H 96 12/17/18 00:16 36.9 C 61 16 157/81 H 96 Laboratory Results Laboratory Results - last 24 hr 12/16/18 12/16/18 12/16/18 10:36 10:36 10:36 WBC 6.52 RBC 4.17 L Hgb 11.3 L Hct 35.1 L MCV 84.2 MCH 27.1 MCHC 32.2 RDW Std Deviation 45.9 RDW Coeff of Sunitha 15.0 H Plt Count 223 MPV 9.1 Immature Gran % (Auto) 0.2 Neut % (Auto) 76.2 Lymph % (Auto) 18.7 [place] % (Auto) 4.1 Eos % (Auto) 0.5 Baso % (Auto) 0.3 Immature Gran # (Auto) 0.01 Neut # (Auto) 4.97 Lymph # (Auto) 1.22 [place] # (Auto) 0.27 Eos # (Auto) 0.03 Baso # (Auto) 0.02 PT 10.4 INR 1.0 APTT 24.2 PTT Ratio 0.9 Sodium 138 Potassium 4.5 Chloride 105 Carbon Dioxide 28 Anion Gap 5.0 BUN 16 Creatinine 1.12 Est Cr Clr Drug Dosing 49.7 Est GFR ( Amer) 56.4 Est GFR (Non-Af Amer) 48.7 BUN/Creatinine Ratio 14.6 Glucose 190 H POC Glucose Calcium 8.9 Phosphorus 3.8 Magnesium 1.5 L Total Bilirubin 0.3 AST 16 ALT 18 Alkaline Phosphatase 90 Troponin I < 0.015 Total Protein 7.1 Albumin 3.5 Globulin 3.6 Albumin/Globulin Ratio 1.0 TSH 0.378 12/16/18 12/16/18 12/16/18 13:53 16:29 17:06 WBC RBC Hgb Hct MCV MCH MCHC RDW Std Deviation RDW Coeff of Sunitha Plt Count MPV Immature Gran % (Auto) Neut % (Auto) Lymph % (Auto) [place] % (Auto) Eos % (Auto) Baso % (Auto) Immature Gran # (Auto) Neut # (Auto) Lymph # (Auto) [place] # (Auto) Eos # (Auto) Baso # (Auto) PT INR APTT PTT Ratio Sodium 140 Potassium 4.9 Chloride 108 H Carbon Dioxide 28 Anion Gap 4.0 BUN 15 Creatinine 1.02 Est Cr Clr Drug Dosing 54.5 Est GFR ( Amer) 63.2 Est GFR (Non-Af Amer) 54.5 BUN/Creatinine Ratio 15.0 Glucose 195 H POC Glucose 257 H Calcium 8.5 Phosphorus Magnesium 1.6 L Total Bilirubin AST ALT Alkaline Phosphatase Troponin I < 0.015 Total Protein Albumin Globulin Albumin/Globulin Ratio TSH 06/12/17/18 12/17/18 20:19 06:00 07:14 WBC RBC Hgb Hct MCV MCH MCHC RDW Std Deviation RDW Coeff of Sunitha Plt Count MPV Immature Gran % (Auto) Neut % (Auto) Lymph % (Auto) [place] % (Auto) Eos % (Auto) Baso % (Auto) Immature Gran # (Auto) Neut # (Auto) Lymph # (Auto) [place] # (Auto) Eos # (Auto) Baso # (Auto) PT INR APTT PTT Ratio Sodium Potassium Chloride Carbon Dioxide Anion Gap BUN Creatinine Est Cr Clr Drug Dosing Est GFR ( Amer) Est GFR (Non-Af Amer) BUN/Creatinine Ratio Glucose POC Glucose 229 H 164 H Calcium Phosphorus Magnesium 1.6 L Total Bilirubin AST ALT Alkaline Phosphatase Troponin I Total Protein Albumin Globulin Albumin/Globulin Ratio TSH (1) Syncope Syncope type: unspecified Qualified Code(s): R55 - Syncope and collapse
--- NOTE | 2018-12-17 09:55 | Hospitalist Progress Note ---
Date of Service December 17, 2018 Assessment & Plan (1) Syncope: Present on admission after she had an episode syncope lasted 30 seconds Greater than 3 sec Pauses on Tele, Eval for PPM c Dr Adler Will monitor in tele (2) Hypomagnesemia: Mg on admission 1.5 Mg replaced 1.6 today (3) Bradycardia: Pauses discovered (4) Dizziness: As above (5) Major depression: Controlled on Zoloft 150mg daily (6) Diabetes mellitus: Continue Insulin glargine Insulin sliding scale Monitor BS DVT px on heparin subq Code status Full code RN reported 2 Pauses ROS-No Headache, No Visual Changes, No Nausea, No Vomiting, No Fever, No Chills, No Neck Pain or Stiffness, No Chest Pain, No Palpitations, No SOB, No GAITAN, No Cough, No Sputum, No Wheezing, No Abdominal Pain, No Diarrhea, No Hematemesis, No Hemoptysis, No Unexpected Weight Loss, No Flank pain, No Melena, No Hematochezia, No Frequency, No Urgency, No Burning, No Hematuria, No Rashes, No Diaphoresis. Appetite is Normal Physical Exam Gen-AAO x 3, NAD, Afebrile Head-NCAT, EOMI, PERRLA, Anicteric Sclera, No Posterior Pharyngeal Erythema Neck-Supple, No JVD, No Thyromegaly, No Masses, No LAD, No Bruits Lungs-Clear to Auscultation Bilaterally, No Rales, No Rhonchi, No Wheezing, No Crepitus Chest-No S4, +S1, +S2, No S3, No Murmurs, No Rubs, No Gallops, No Ectopy Abdomen-Soft, Bowel Sounds Present, Non Tender, Non Distended, No Hepatomegaly, No Splenomegaly, No Palpable Masses, No Rebound, No Rigidity, No Guarding Musculoskeletal-Full Range of Motion Bilaterally, No CVAT Extremities-No Cyanosis, No Clubbing, No Edema Nuero-Cranial Nerves II-XII grossly intact, Motor WNL, DTRs WNL, Strength WNL, Non Focal Psych-Normal Mood (7) Hypertension: BP elevated possible related to hospital setting Continue lisinopril Consider to increase lisinopril to 20mg if BP not at goal Continue monitor BP Results & Data Vital Signs (Past 12 Hours) Vital Signs Temp Pulse Resp BP Pulse Ox 12/17/18 07:01 36.7 C 54 L 16 151/84 H 98 12/17/18 03:14 37.0 C 56 L 16 141/80 H 96 12/17/18 00:16 36.9 C 61 16 157/81 H 96 (1) Syncope Syncope type: unspecified Qualified Code(s): R55 - Syncope and collapse
--- NOTE | 2018-12-17 10:59 | History & Physical Bridge Note ---
Date of Service December 17, 2018 History & Physical Bridge Note I have examined the patient, reviewed the History & Physical and in the interval since the performance of the History & Physical I have noted the following changes of clinical significance: pt with syncope and recurrent sinus arrest and irreversible sinus bradycardia symptomatic; for a dual chamber pacemaker
--- NOTE | 2018-12-17 11:00 | Pre Anesthesia Assessment ---
Date of Service December 17, 2018 Pre Sedation Assessment Vital Signs Temp Pulse Pulse Resp BP BP Pulse Ox 12/17/18 10:46 36.7 C 54 L 19 184/76 H 97 12/17/18 07:01 36.7 C 54 L 16 151/84 H 98 12/17/18 03:14 37.0 C 56 L 16 141/80 H 96 12/17/18 00:16 36.9 C 61 16 157/81 H 96 12/16/18 18:59 36.5 C 62 17 161/73 H 97 12/16/18 15:31 36.7 C 63 19 159/59 H 98 12/16/18 13:53 36.8 C 55 L 18 185/62 H 95 12/16/18 13:29 62 18 167/95 H 98 12/16/18 12:05 95 H 18 141/84 H 95 Cardiovascular + bradycardic Respiratory normal respiratory effort, lungs clear to auscultation Pre-Sedation Airway Assessment Smoking Status: Never smoker Hx Sleep Apnea: No Hx Difficult Intubation: No Short, Thick Neck: No Thyromental Distance: < 3.5 Finger Breadths Oral Cavity: + WNL Mallampati Class: III ASA: ASA3 NPO Status Date of Last Intake of Fluids: 12/16/18 Date of Last Intake of Solid Food: 12/16/18 Procedure Planning Contraindications for Sedation: none Current Medications Reviewed: Yes Notes The planned sedation has been discussed with the patient. Informed Consent was obtained. I have identified the patient, determined the appropriateness of sedation and have assessed the patient immediately prior to the procedure. All medicine(s) and interventions are by my order.
[2018-12-17] MEDS ORDERED: BACITRACIN INJ 50,000 UNIT VIAL ONE (11:04)
[2018-12-17] MEDS ORDERED: LIDOCAINE HCL 1% 20 ML VIAL ONE (11:04)
[2018-12-17] MEDS ORDERED: BUPIVACAINE 0.25% 30 ML VIAL ONE (11:04)
[2018-12-17] MEDS ORDERED: MIDAZOLAM HCL 5 MG/ML 1 ML VIAL ONE (11:08)
[2018-12-17] MEDS ORDERED: fentaNYL citrate 100 MCG/2 ML VIAL ONE (11:08)
[2018-12-17] MEDS ORDERED: CEFAZOLIN 250 MG/ML 1 GM VIAL ONE (11:09)
--- NOTE | 2018-12-17 12:29 | Post Anesthesia Assessment ---
Date of Service December 17, 2018 Post Sedation Assessment Vital Signs Temp Pulse Pulse Resp BP BP Pulse Ox 12/17/18 10:46 36.7 C 54 L 19 184/76 H 97 12/17/18 07:01 36.7 C 54 L 16 151/84 H 98 12/17/18 03:14 37.0 C 56 L 16 141/80 H 96 12/17/18 00:16 36.9 C 61 16 157/81 H 96 12/16/18 18:59 36.5 C 62 17 161/73 H 97 12/16/18 15:31 36.7 C 63 19 159/59 H 98 12/16/18 13:53 36.8 C 55 L 18 185/62 H 95 12/16/18 13:29 62 18 167/95 H 98 Recovery Score Activity: Moves 4 extremities Respiration: Deep Breath/Cough Circulation: +/-20% PreAnes Value Consciousness: Fully Awake Oxygen Saturation: > 92% On Room Air Discharge Sedation Level of Care: Fast Track Phase II Post Sedation Plan On clinical assessment, the patient appears to have tolerated the sedation without complications. Patient is recovering as anticipated. Patient will continue to be monitored by nursing and may be discharged when sedation discharge criteria are met per below protocol. Upon Completions of procedure and additional 15 minutes continue every 5 minute vital signs and the P.A.R. score; then discharge to a Phase I or Fast Track to Phase II per the following guidelines: * Discharge Patient to appropriate Phase II area if PAR is 8 or greater or return to pre- procedure baseline. The post - procedure orders will be as directed. * If PAR score is less than 8 or not return to pre-procedure baseline then patient will follow Phase I monitoring till PAR is reached for Phase II. The Phase I may be done in procedure room or may call to secure a Phase I area. * If naloxone or flumazenil are used for reversal, hold in Phase I for continued monitoring from when last reversal dose was given for a minimum of 60 minutes or longer pending the nurse and/or physician discretion of patient condition before discharge to Phase II. Please call the Sedation Physician to re-evaluate and complete post-note for discharge to Phase II area. Do NOT discharge from procedure sedation or Phase 1 until post- sedation evaluation note is complete by procedure /sedation MD Sedation Discharge Instructions to be given to the patient at discharge to home.
--- NOTE | 2018-12-17 12:30 | Operative Report ---
Post Operative Report Pre & Post Diagnosis sinus arrest and syncope Operation Date: 12/17/18 13:00 <No data on this case meets the specified criteria> Procedure Operation Date: 12/17/18 13:00 Actual Procedures p Pacer with A/V Leads (Dual) - Natalie Adler DO Surgeon Natalie Adler, Rocket Engine Tester none Estimated Blood Loss 20 Findings Consistent with Post-Op Diagnosis Specimens none Description of Procedure see official report I attest to the content of the Intraoperative Record and any orders documented therein. Any exceptions are noted below.
[2018-12-17] MEDS: INSULIN GLARGINE SOLOSTAR 100 UNITS/ML 3 ML PEN SQ SCH (13:09)
[2018-12-17] MEDS: SERTRALINE HCL 50 MG TABLET PO SCH (13:10)
[2018-12-17] MEDS: MAGNESIUM OXIDE 400 MG TAB PO SCH ×2 (13:10→21:06)
[2018-12-17] MEDS: LISINOPRIL 10 MG TAB PO SCH (13:11)
[2018-12-17] MEDS: ASPIRIN 81 MG ECTAB PO SCH (13:11)
[2018-12-17] MEDS: PANTOprazole 40 MG TAB PO SCH (13:11)
[2018-12-17] MEDS: ACETAMINOPHEN 325 MG TAB PO SCH ×3 (15:39→23:56)
[2018-12-17] MEDS: MoRPHine SULFATE 2 MG/ML CARP IV PRN (16:52)
[2018-12-17] MEDS ORDERED: KETOROLAC TROMETHAMINE 15 MG/ML VIAL IV ONE (18:39)
[2018-12-17] MEDS: ATORVASTATIN 40 MG TAB PO SCH (21:05)
[2018-12-17] MEDS: TRAZODONE HCL 50 MG TAB PO SCH (21:06)
[2018-12-18 05:46] LABS: Hematocrit (blood only) 30.8 % (37-47); Mean Corpuscular Hgb Conc 32.5 g/dL (32-36); Mean Corpuscular Volume 82.8 fL (80-100); Platelet Count 211 K/uL (130-400); RDW Coefficient of Variation 15.1 % (11.5-14.5); RDW Standard Deviation 46.1 fL (36.4-46.3); Red Blood Count 3.72 M/uL (4.2-5.4); White Blood Count 6.61 K/uL (4.8-10.8)
[2018-12-18] MEDS: ACETAMINOPHEN 325 MG TAB PO SCH ×2 (05:46→12:57)
[2018-12-18] MEDS: LEVOTHYROXINE SODIUM 150 MCG TABLET PO SCH (05:46)
[2018-12-18] MEDS: HEPARIN SOD 5,000 UNIT/0.5 ML VIAL SQ SCH (05:49)
[2018-12-18 06:19] LABS: Creatinine Clr Calc Pharmacy 53.1 ml/min; Est GFR (African American) 60.3; Potassium 3.5 mmol/L (3.5-5.1)
--- NOTE | 2018-12-18 07:33 | XRay Report ---
XR chest 2V routine CLINICAL HISTORY: Pacemaker placement COMPARISON STUDY: 12/16/2018 FINDINGS: The cardiac and mediastinal contours remain stable. There has been interval placement left subclavian dual-chamber central venous pacemaker. There is no pneumothorax. Electrode position appear s unremarkable. There is no failure. There is no focal pulmonary consolidation. There are no pleural effusions.[ IMPRESSION: No evidence of pneumothorax status post left subclavian dual-chamber central venous pacem shara placement. Electronically signed by: Wilmer Green M.D. 12/18/2018 7:32 AM
--- NOTE | 2018-12-18 08:00 | Operative Report ---
DATE OF OPERATION: 12/17/2018 PREOPERATIVE DIAGNOSIS: Sinus arrest, syncope, irreversible symptomatic sinus bradycardia. POSTOPERATIVE DIAGNOSIS: Sinus arrest, syncope, irreversible symptomatic sinus bradycardia. PROCEDURE: Dual chamber rate responsive permanent pacemaker under fluoroscopic guidance. SURGEON: Natalie Adler DO. CRAFT MANAGER: None. ANESTHESIA: Monitored conscious sedation was given by Emily Showers, a total of 4 mg of Versed, 100 mcg of fentanyl. Start time 11:27, end time 12:27. IV FLUIDS: 40 mL. ANTIBIOTICS: 2 grams of Ancef. BLOOD LOSS: 15 mL URINE OUTPUT: Not applicable. SPECIMENS: None. FINDINGS: See below. DRAINS: None. INDICATIONS: This is a 73-year-old female with past medical history for diabetes, hypertension, hyperlipidemia. She was admitted to [facility] secondary to syncope, found to be sinus bradycardia along with overnight on telemetry and during the day when awake, having sinus arrest pauses of beyond more than 4 seconds and for this reason, she was recommended a pacemaker. CONSENT: Consent was obtained prior to the patient going into electrophysiology lab. The patient was explained the risks, benefits, and alternatives of the procedure. Risks include but not limited to sudden cardiac , cardiac arrhythmias, cerebrovascular accident, myocardial infarction, injury to the blood vessels, chamber of the heart, lung, bleeding, and infection. The patient understood these risks and agreed to the procedure as planned. Informed consent was obtained. DESCRIPTION OF THE PROCEDURE: The patient was brought into the electrophysiology lab in a fasting state. She was connected to continuous desk monitor. A timeout was performed to ensure patient identity and procedure correctly. The patient was prepped and draped over the left infraclavicular space in normal surgical standard fashion. Moderate conscious sedation was given throughout the procedure for patient's comfort level. [place] precautions were made throughout the procedure. A 10 mL of 1% lidocaine, bupivacaine mixture were given in the left deltopectoral groove. Incision was made in left deltopectoral groove. Blunt dissection performed down to identify cephalic veins. Cephalic veins was identified and isolated using 0 silk ties. The vein was nicked with an 11 blade and a guidewire was inserted without any resistance. Guidewire and dilator removed. The vein was nicked with an 11 blade and a guidewire was inserted without any resistance. An 8-Croatian sheath was inserted over the guidewire, the dilator was removed and a second guidewire was inserted through the 8-Croatian sheath to allow for retained venous access. Then the sheath was removed, flushed and reinserted over the dilator and then the 8-Croatian sheath was inserted over one of the guidewires. The guidewire and dilator removed and the right ventricular lead was advanced into right ventricle and positioned into right ventricular apex under fluoroscopic guidance. There was adequate pacing and sensing thresholds and no diaphragmatic stimulation with high output pacing. The 8-Croatian sheath was peeled away and lead was fixated to pectoralis muscle using 0 silk suture. A second 8-Croatian sheath was inserted over the retained guidewire without any resistance. Guidewire and dilator removed. The right atrial lead was then advanced into the right atrium and positioned into the right atrial appendage under fluoroscopic guidance. There was adequate pacing and sensing thresholds and no diaphragmatic stimulation with high output pacing. The 8-Croatian sheath was peeled away and lead was fixated to pectoralis muscle using 0 silk suture. There was some backbleeding at the venous site, so a pursestring using a 2-[address] needle was placed. Then using blunt dissection over the pectoralis muscle, a pacemaker pocket was created. Pocket was flushed with copious amounts of bacitracin saline wash and inspected for hemostasis. The pulse generator was then attached to the leads, making sure that the pins were in appropriate position, passed set screws and set screws were all tightened. Pulse generator was then placed in the pocket, making sure that the leads were lying flat beneath the device. A stay stitch using 0 silk suture was used to secure the device to the pectoralis muscle. The incision was then closed in a 3-layered fashion with 2-0 Vicryl interrupted suture followed by 3-0 Vicryl inches followed by 4-0 Monocryl running stitch and Dermabond was applied. EQUIPMENT: 1. The pulse generator is a Medtronic [place] XT DR SUZETTE Horan [id number], serial number [id number]. 2. Right atrial lead Medtronic 5076-52 cm, serial #[id number]. 3. Right ventricular lead, Medtronic 5076-58 cm, serial #[id number]. INTRAOPERATIVE TESTIN. Right atrial lead: P waves 2.25 millivolts, impedance 950 ohms, threshold 0.25 volts at 0.4 milliseconds. 2. Right ventricular lead: R-wave 7.125 millivolts, impedance 1216 ohms, threshold 1.125 volts at 0.4 milliseconds. FINAL PARAMETERS THROUGH THE DEVICE: 1. Right atrial lead: P-wave 2.4 millivolts, impedance 1007 ohms, threshold 0.75 volts at 0.4 milliseconds. 2. Right ventricular lead: R-wave 7.6 millivolts, impedance 1254 ohms, threshold 0.75 volts at 0.4 milliseconds. FINAL PARAMETERS: MVP-R 60/130. Right atrial amplitude 3.5 volts, pulse width 0.4 milliseconds, sensitivity 0.3 millivolts. Right ventricular amplitude 3.5 volts, pulse width 0.4 milliseconds, sensitivity 0.9 millivolts. IMPRESSION: Successful implantation of a dual chamber rate responsive permanent pacemaker under fluoroscopic guidance secondary to sinus arrest and syncope. PLAN: Monitor patient overnight, 12-lead ECG, chest x-ray. She is not allowed to lift the left elbow or left shoulder for 1 month. She cannot lift more than 10 pounds with the left arm for 2 weeks. She can shower in 2 days, let water run over the incision, do not scrub it. She should follow up in our [facility] on Saturday12/26/2018 for device and wound check. I attest to the content of the Intraoperative Record and any orders documented therein. Any exception s are noted below.
[2018-12-18] MEDS: PANTOprazole 40 MG TAB PO SCH (09:01)
[2018-12-18] MEDS: LISINOPRIL 10 MG TAB PO SCH (09:01)
[2018-12-18] MEDS: MAGNESIUM OXIDE 400 MG TAB PO SCH (09:02)
[2018-12-18] MEDS: ASPIRIN 81 MG ECTAB PO SCH (09:02)
[2018-12-18] MEDS: INSULIN GLARGINE SOLOSTAR 100 UNITS/ML 3 ML PEN SQ SCH (09:02)
[2018-12-18] MEDS: SERTRALINE HCL 50 MG TABLET PO SCH (09:02)
[2018-12-18] MEDS: MoRPHine SULFATE 2 MG/ML CARP IV PRN ×2 (09:06)
[2018-12-18] MEDS: INSULIN ASPART 100 UNITS/ML 3 ML PEN SC SCH ×2 (09:10→12:57)
--- NOTE | 2018-12-18 11:00 | Discharge Summary ---
Date of Service December 18, 2018 Admission HPI Per Admitting Provider 73 y/o female with PMH of DM, depression, Dyslipidemia, hypothyroidism, CKD stage 3, chronic rhinitis, HTN was brought to the ER for near syncope episode. Pt said that this morning while walking, she felt dizzy. Her stereo compiler was behind her and caught her and lay her down on the ground. Caregiver said that pt passed out and eyes closed for about 30sec. Caregiver said that after 30sec, pt opened her eyes and was talking. She said that she checked her BS and it was running in the 175. Cane Feeder said that during the syncopal episode, pt did not experience any seizure like activity, no bladder or bowel loss, confusion or slurred speech. Cane Feeder said for the last few days, pt has been feeling dizzy. Pt said that her dizziness worsening when standing. she said that she does not feel the room is spinning. Pt said that she was recently treated with Augmentin for URI and completed the course of abx. Pt said that she feels a pressure in her left ear. Pt said that she had diarrhea that improved now. In the ER her heart rate dropped in the 30-40's in 2 occasions. denies any chest pain, palpitation, dizziness, dysuria, fever, weakness and SOB. Admission Exam Per Admitting Provider General- No acute distress Head- atraumatic Eyes- PERRL, EOMI, ENT- oropharynx clear, no tonsils exudate, no redness or pus in both ears canal Neck- supple, no JVD Lungs- clear to auscultation Heart- regular rhythm; +systolic murmur Abdomen- normal bowel sounds, soft, nontender Extremities- no calf tenderness Neuro- alert, oriented x 3; PERRL, EOMI; no facial palsy; no dysarthria Skin- warm & dry Principal Diagnosis Sick Sinus Syndrome Primary Conduction Disease Symptomatic Bradycardia HTN DM II HLD CKD Hypothyroid Discharge Exam ROS-No Headache, No Visual Changes, No Nausea, No Vomiting, No Fever, No Chills, No Neck Pain or Stiffness, No Chest Pain, No Palpitations, No SOB, No GAITAN, No Cough, No Sputum, No Wheezing, No Abdominal Pain, No Diarrhea, No Hematemesis, No Hemoptysis, No Unexpected Weight Loss, No Flank pain, No Melena, No Hematochezia, No Frequency, No Urgency, No Burning, No Hematuria, No Rashes, No Diaphoresis. Appetite is Normal, Incision site sore Physical Exam Gen-AAO x 3, NAD, Afebrile, Obese Head-NCAT, EOMI, PERRLA, Anicteric Sclera, No Posterior Pharyngeal Erythema Neck-Supple, No JVD, No Thyromegaly, No Masses, No LAD, No Bruits Lungs-Clear to Auscultation Bilaterally, No Rales, No Rhonchi, No Wheezing, No Crepitus Chest-No S4, +S1, +S2, No S3, No Murmurs, No Rubs, No Gallops, No Ectopy, L Chest Incision CD&I Abdomen-Soft, Obese, Bowel Sounds Present, Non Tender, Non Distended, No Hepatomegaly, No Splenomegaly, No Palpable Masses, No Rebound, No Rigidity, No Guarding Musculoskeletal-Full Range of Motion Bilaterally, No CVAT Extremities-No Cyanosis, No Clubbing, No Edema Nuero-Cranial Nerves II-XII grossly intact, Motor WNL, DTRs WNL, Strength WNL, Non Focal Psych-Normal Mood Discharge Data Allergies Allergy/AdvReac Type Severity Reaction Status Date / Time No Known Allergies Allergy Unknown Verified 12/16/18 11:00 Consultations 12/16/18 11:09 ED Decision to Admit Stat 12/16/18 11:40 ED Decision to Admit Stat 12/16/18 13:47 Consult Cardiology Routine Procedures Performed Operation Date: 12/17/18 13:00 Actual Procedures p Pacer with A/V Leads (Dual) - Natalie Adler DO Ordered Studies 12/17/18 11:00 EP Lab Images for PACS ONCE Current Diagnoses Type 2 diabetes mellitus without complications (12/16/18) Hypomagnesemia (12/16/18) Major depressive disorder, single episode, unspecified (12/16/18) Essential (primary) hypertension (12/16/18) Bradycardia, unspecified (12/16/18) Cardiac murmur, unspecified (12/16/18) Dizziness and giddiness (12/16/18) Syncope and collapse (12/16/18) Other specified postprocedural states (12/16/18) Allergies No Known Allergies Allergy (Unknown, Verified 12/16/18 11:00) Height/Weight/Isolation Height 5 ft 8 in Weight 83 kg Chemistry 12/16/18 12/16/18 12/18/18 10:36 13:53 05:36 Sodium 138 140 139 Potassium 4.5 4.9 3.5 D Chloride 105 108 H 105 Carbon Dioxide 28 28 29 Anion Gap 5.0 4.0 5.0 BUN 16 15 18 Creatinine 1.12 1.02 1.06 Glucose 190 H 195 H 100 H Hospital Course (1) Syncope: Present on admission after she had an episode syncope lasted 30 seconds Greater than 3 sec Pauses on Tele, PPM placed by Dr Adler 12/17 DC home today, f/u c Dr Adler in the office for wound check (2) Hypomagnesemia: Repleted (3) Bradycardia: Pauses discovered Pacer Placed (4) Dizziness: As above (5) Major depression: Controlled on Zoloft 150mg daily (6) Diabetes mellitus: Home BS regimen ROS-No Headache, No Visual Changes, No Nausea, No Vomiting, No Fever, No Chills, No Neck Pain or Stiffness, No Chest Pain, No Palpitations, No SOB, No GAITAN, No Cough, No Sputum, No Wheezing, No Abdominal Pain, No Diarrhea, No Hematemesis, No Hemoptysis, No Unexpected Weight Loss, No Flank pain, No Melena, No Hematochezia, No Frequency, No Urgency, No Burning, No Hematuria, No Rashes, No Diaphoresis. Appetite is Normal Physical Exam Gen-AAO x 3, NAD, Afebrile Head-NCAT, EOMI, PERRLA, Anicteric Sclera, No Posterior Pharyngeal Erythema Neck-Supple, No JVD, No Thyromegaly, No Masses, No LAD, No Bruits Lungs-Clear to Auscultation Bilaterally, No Rales, No Rhonchi, No Wheezing, No Crepitus Chest-No S4, +S1, +S2, No S3, No Murmurs, No Rubs, No Gallops, No Ectopy Abdomen-Soft, Bowel Sounds Present, Non Tender, Non Distended, No Hepatomegaly, No Splenomegaly, No Palpable Masses, No Rebound, No Rigidity, No Guarding Musculoskeletal-Full Range of Motion Bilaterally, No CVAT Extremities-No Cyanosis, No Clubbing, No Edema Nuero-Cranial Nerves II-XII grossly intact, Motor WNL, DTRs WNL, Strength WNL, Non Focal Psych-Normal Mood (7) Hypertension: BP elevated possible related to hospital setting Continue lisinopril Consider to increase lisinopril to 20mg if BP not at goal Continue monitor BP Total Time Total Time Spent Total Time Spent (In Minutes): 45 mins Discharge Plan Discharge Items Patient Disposition: Home - Self-Care Reason For Visit: SYNCOPE Discharge Diagnosis: Sick Sinus Syndrome Primary Conduction Disease Symptomatic Bradycardia HTN DM II HLD CKD Hypothyroid Condition: Good Discharge Goals: Improve function Activity: As commented below Activity Comment: do not lift your left elbow over your left shoulder for 1 month Lifting: No more than 10 pounds Lifting Comment: do not lift more than 10 pounds with the left arm for 2 weeks Bathing: Keep incision dry Bathing Comment: can shower wednesday 12/20 let water run over the incision do not scrub it Sexual Activity: Wait until after follow-up appointment Exercise/Sports: None Driving/Machine Use Comment: Resume when OK with Dr Adler Weightbearing: Left weightbearing and Right weightbearing Non-emergency contact: Primary Care Provider, Surgeon and [employer] Loan Funder Call non-emergency contact if: you have any medication questions, your symptoms worsen and your pain is not controlled Follow-up/Referrals: Carmelo Cole MD [Primary Care Provider] - Rick Murry MD [Physician] - (1-2 weeks) Natalie Adler DO [Physician] - (As directed by Dr Adler for quick wound check) Diet: Carb Consistent or DM2 and Heart Healthy Addtl Provider Instructions: Device and wound check in [facility] on Tuesday 12/26 If you notice any swelling call Dr. Adler's office immediately Prescriptions: New acetaminophen [Mapap (acetaminophen)] 325 mg Tablet 650 mg PO Q6 PRN (Reason: fever or pain) Qty: 90 RF: 0 magnesium oxide 400 mg (241.3 mg magnesium) Tablet 400 mg PO TID Qty: 9 RF: 0 ibuprofen [Motrin IB] 200 mg capsule 400 mg PO Q4H PRN (Reason: fever or pain) Qty: 60 RF: 0 Continued atorvastatin 80 mg tablet 80 mg PO HS RF: 0 trazodone 50 mg tablet 100 mg PO HS RF: 0 sertraline 100 mg tablet 150 mg PO QAM RF: 0 metformin 1,000 mg tablet 1,000 mg PO BID RF: 0 lisinopril 10 mg tablet 10 mg PO QAM RF: 0 levothyroxine 150 mcg tablet 150 mcg PO QAM RF: 0 omeprazole 20 mg capsule,delayed release(DR/EC) 20 mg PO QAM RF: 0 Januvia 100 mg tablet 100 mg PO QAM RF: 0 Basaglar KwikPen U-100 Insulin 100 unit/mL (3 mL) insulin pen 24 unit subcut QAM RF: 0 aspirin 81 mg Tablet,Delayed Release (Dr/Ec) 81 mg PO QAM Qty: 0 RF: 0 Stand-Alone Forms: [facility] Discharge Orders: Discharge Order (Routine); Ordered 12/18/18 Ordered By: Fitz Ayala Admission Data Admit Date/Time: 12/16/18 12:55 Attending Provider: Fitz Ayala Admit Provider: Ursula Sanches Primary Care Provider: Carmelo Cole Other Providers: Ursula Sanches ; Rick Murry Service: Telemetry
--- NOTE | 2018-12-18 12:53 | Cardiology Progress Note ---
Date of Service December 18, 2018 Assessment & Plan (1) Sick sinus syndrome: As source of current complaints now status post successful dual-chamber pacemaker insertion. Doing well, may be discharged home with anticipated follow-up as outpatient. Wound check and device check in 1 week's time follow- up cardiology 3 to 4 weeks time Pacemaker interrogation today functioning appropriately (2) Syncope: Witnessed event at home lasting approximately 30 seconds of uncertain etiology. No post event residual. Episode occurred in bedroom and bathroom question increased vagal tone etiology. EKG normal Echocardiogram without significant structural abnormality. Telemetry demonstrates evidence of sick sinus syndrome with marked bradycardia intermittently No symptoms since pacemaker insertion (3) Bradycardia: Transient sinus bradycardia only noted initially. Will maintain telemetry as above telemetry demonstrating evidence of sick sinus syndrome in association with recent syncope (4) Murmur: Echocardiogram demonstrates borderline left appropriately with normal left systolic function aortic sclerosis without stenosis (5) S/P thyroidectomy: On thyroid replaced Subjective Patient seen and examined, chart, telemetry, medications reviewed. Patient denies any symptoms notes no abdominal pain or discomfort no dizziness or lightheadedness. Telemetry did demonstrate several episodes of marked sinus bradycardia, sinus arrest Physical Exam Constitutional: WD/WN, vitals as above + obese Eyes: PERRL, conjunctivae normal, anicteric sclerae ENMT: external ear and nose normal, oropharynx normal Neck: trachea midline, no thyromegaly Respiratory: normal respiratory effort, lungs clear to auscultation Cardiovascular: Rate/Rhythm: regular rate and regular rhythm Heart Sounds: normal S1, normal S2 and + murmur (Grade 3/6 systolic murmur right upper sternal border no diastolic murmur); no gallop Vessels: femoral pulses present; no J VD, no carotid bruit and no femoral bruit Extremities: normal capillary refill; no edema Chest (Breasts): Chest: + pacemaker (Newly inserted with incision intact) Gastrointestinal (Abdomen): normal bowel sounds, soft, nontender, no hepatosplenomegaly Musculoskeletal: no cyanosis or clubbing, extremities motor strength 5/5 Skin: no rashes, warm and dry Results & Data Vital Signs (Past 12 Hours) Vital Signs Temp Pulse Resp BP Pulse Ox 12/18/18 11:10 37.2 C 61 17 155/75 H 97 12/18/18 07:00 36.8 C 63 18 149/80 H 99 12/18/18 04:23 36.5 C 65 16 126/72 94 (1) Syncope Syncope type: unspecified Qualified Code(s): R55 - Syncope and collapse
== END 2018-12-18 14:30 | disposition home or self-care (01) | DRG 244 ==
LOC: ED 09:11 → SUATTDRO 12:55 → 2S 12:55
DX: Z79.82 Long term (current) use of aspirin; F32.9 Major depressive disorder, single episode, unspecified; Z79.899 Other long term (current) drug therapy; N18.3 Chronic kidney disease, stage 3 (moderate); R01.1 Cardiac murmur, unspecified; E11.22 Type 2 diabetes mellitus with diabetic chronic kidney disease; E83.42 Hypomagnesemia; I49.5 Sick sinus syndrome; R00.1 Bradycardia, unspecified; Z79.4 Long term (current) use of insulin; E78.5 Hyperlipidemia, unspecified; E89.0 Postprocedural hypothyroidism; I45.5 Other specified heart block; I12.9 Hypertensive chronic kidney disease with stage 1 through stage 4 chronic kidney disease, or unspecified chronic kidney disease; R55 Syncope and collapse

== ENCOUNTER 2019-07-11 12:02 | Inpatient (IN) ==
[2019-07-11] MEDS ORDERED: ONDANSETRON INJ 2 MG/ML 2 ML VIAL IV STA (12:29)
[2019-07-11] MEDS ORDERED: fentaNYL citrate 100 MCG/2 ML VIAL IV STA (12:29)
[2019-07-11 13:02] LABS: Basophils # (auto) 0.02 K/uL (0-0.2); Basophils % (auto) 0.3 %; Eosinophils # (auto) 0.04 K/uL (0-0.5); Eosinophils % (auto) 0.6 %; Hematocrit (blood only) 32.7 % (37-47); Hemoglobin 10.7 g/dL (12.0-16.0); Immature Granulocytes # (auto) 0.01 K/uL (0.00-0.02); Immature Granulocytes % (auto) 0.2 %; Lymphocytes % (auto) 11.3 %; Mean Corpuscular Hemoglobin 25.6 pg (25-34); Mean Corpuscular Hgb Conc 32.7 g/dL (32-36); Mean Corpuscular Volume 78.2 fL (80-100); Mean Platelet Volume 9.2 fL (7.4-10.4); Monocytes # (auto) 0.55 K/uL (0.11-0.59); Monocytes % (auto) 8.9 %; Neutrophils # (auto) 4.88 K/uL (1.4-6.5); Neutrophils % (auto) 78.7 %; Platelet Count 178 K/uL (130-400); RDW Coefficient of Variation 15.9 % (11.5-14.5); RDW Standard Deviation 45.4 fL (36.4-46.3); Red Blood Count 4.18 M/uL (4.2-5.4)
--- NOTE | 2019-07-11 13:14 | CT Scan Report ---
CT head/brain wo con CLINICAL HISTORY: 73 years-old Female with CHI. Acute head injury TECHNIQUE: Multiple axial CT images of the head were obtained without contrast. A dose lowering tech nique was utilized adhering to the principles of ALARA. CT DOSE: 537.48 mGy.cm COMPARISON: Head CT 05/01/2019 FINDINGS: No acute intracranial hemorrhage, midline shift, intracranial mass, hydrocephalus, territorial ischem ia or abnormal extra-axial collection. Age-related involutional changes. Patchy white matter hypodens ities suggest chronic microvascular ischemic disease. Cerebral vascular calcifications. The calvarium is intact. Moderate to severe mucosal thickening of the ethmoid air cells with mild to moderate coastal thickening of the maxillary sinuses demonstrating air-fluid levels. Hypoplastic fro ntal sinuses. Findings are suggestive of remote left orbital floor fracture. Soft tissues are unremar kable. Prior bilateral lens replacement. IMPRESSION: No acute intracranial abnormality or calvarial fracture. ACT 112: Negative or not required by law. The above report was generated using voice recognition software. It may contain grammatical, syntax o r spelling errors. Electronically signed by: Philip Adam M.D. 07/11/2019 1:13 PM
[2019-07-11 13:21] LABS: Albumin Level 3.6 gm/dl (3.4-5.0); BUN Creatinine Ratio 10.7 (10-20); Calcium 8.6 mg/dl (8.5-10.1); Creatinine Clr Calc Pharmacy 53.9 ml/min; Est GFR (African American) 63.2; Est GFR (Non-African American) 54.5
[2019-07-11 13:23] LABS: Albumin Globulin Ratio 0.9 (0.9-2); Bilirubin,Total 0.3 mg/dl (0.2-1); Globulin 3.8 gm/dl (2.5-4.0); Total Protein 7.4 gm/dl (6.4-8.2)
--- NOTE | 2019-07-11 13:55 | Emergency Department Note ---
Entered by Joslyn Ahmadi acting as a scribe for History of Present Illness General Chief complaint: Fall Stated complaint: fall/tailbone pain Source: patient History of Present Illness Onset (ago): hour(s) (6) Location: head (general) Pain Consistency: + other (episode) Quality: + other (fall) Associated symptoms: + other (head injury, back pain, butt pain) The patient is a 73 year old female who presents to the Emergency Room with complaints of an episode of a fall that occurred 6 hours ago. The patient reports she slid off of her recliner and onto the carpet. She reports hitting her forehead. She notes she lives alone and was not able to get up and reach the phone. She states she was on the floor until EMS arrived. The patient reports back and butt pain from the fall. Home Medications Home Medications Medication Instructions Recorded Confirmed Type Basaglar KwikPen U-100 Insulin 24 unit SUBCUT QAM 12/16/18 07/11/19 History Januvia 100 mg PO QAM 12/16/18 07/11/19 History atorvastatin 80 mg PO HS 12/16/18 07/11/19 History lisinopril 10 mg PO QAM 12/16/18 07/11/19 History metformin 1,000 mg PO BID 12/16/18 07/11/19 History omeprazole 20 mg PO DAILYBB 12/16/18 07/11/19 History sertraline 150 mg PO QAM 12/16/18 07/11/19 History trazodone 100 mg PO HS 12/16/18 07/11/19 History aspirin 81 mg PO QAM #0 tab 12/18/18 07/11/19 Rx levothyroxine 125 mcg PO QAM 05/01/19 07/11/19 History amoxicillin-pot clavulanate 1 tab PO BID 07/11/19 07/11/19 History loratadine 10 mg PO DAILY PRN 07/11/19 07/11/19 History Allergies Allergy/AdvReac Type Severity Reaction Status Date / Time No Known Allergies Allergy Unknown Verified 07/11/19 12:43 Past Med/Surg History Medical History Chest pain 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) Hyperglycemia due to type 2 diabetes mellitus Major depression (Chronic) Patent foramen ovale (Chronic Unknown) Syncope URI (upper respiratory infection) Surgical History H/O total shoulder replacement (Chronic) "right shoulder" H/O: hysterectomy (Resolved) History of appendectomy (Resolved) S/P thyroidectomy (Chronic) S/p total knee replacement, bilateral (Chronic) Family History Other No pertinent family history Social History Preferred Language: Maori Communication Ability: Effective Visual Impairment: No Limitations Hearing Ability: Normal [employer] Required: No Beliefs That Will Affect Care: None Current Living Situation: Alone Current Living Situation Comment: own apt in living facility-home checks from [facility] Feels Safe at Home: Yes Smoking Status: Never smoker Hx Alcohol Use: No Hx Substance Use: No Review of Systems See HPI for pertinent positives & negatives. and A total of 10 systems reviewed and were otherwise negative Physical Exam Vital Signs Vital Signs - 24 hr 07/11/19 12:05 07/11/19 12:35 07/11/19 14:00 Temperature 37.4 C Temperature Source Oral Pulse Rate 78 Pulse Rate [Apical] 86 Pulse Rhythm Regular Pulse Rhythm [Apical] Regular Pulse Strength Normal Pulse Strength [Apical] Normal Respiratory Rate 18 18 Respiratory Effort / Characteristics Non-Labored Spontaneous Non-Labored Spontaneous Respiratory Depth Normal Normal Respiratory Pattern Regular Regular Blood Pressure 122/66 Blood Pressure [Right Arm] 140/68 Blood Pressure Mean 84 Blood Pressure Mean [Right Arm] 92 Blood Pressure Position Lying Blood Pressure Position [Right Arm] Lying Pulse Oximetry 97 96 94 Oxygen Delivery Method Room Air Room Air Room Air Sepsis Recent Fever Within 48 Hours No Sepsis New/Unexplained Change in Mental Status No Sepsis Action Taken by Nursing No Action Required 07/11/19 15:40 07/11/19 16:00 Temperature Temperature Source Pulse Rate 70 Pulse Rate [Apical] 79 Pulse Rhythm Pulse Rhythm [Apical] Pulse Strength Pulse Strength [Apical] Respiratory Rate 20 22 Respiratory Effort / Characteristics Respiratory Depth Respiratory Pattern Blood Pressure 127/63 Blood Pressure [Right Arm] 122/58 L Blood Pressure Mean 93 Blood Pressure Mean [Right Arm] 79 Blood Pressure Position Blood Pressure Position [Right Arm] Pulse Oximetry 94 95 Oxygen Delivery Method Room Air Room Air Sepsis Recent Fever Within 48 Hours Sepsis New/Unexplained Change in Mental Status Sepsis Action Taken by Nursing Vital signs reviewed. General: Well-appearing [], in no significant distress. HEENT: No scleral icterus, PERRLA, neck supple. Atraumatic. Cardiovascular: Regular rate and rhythm, no extra sounds. Pulmonary: Clear to auscultation bilaterally, normal work of breathing. Abdomen: Soft, nontender, nondistended, positive bowel sounds. Musculoskeletal: Atraumatic, no peripheral edema. Tender to palpation of lower lumbar spin and sacrum. Hematoma over right hip. Postsurgical change and a rthritis to bilateral knees. Neurologic: Patient awake alert and oriented x 3 Skin: Warm, dry, no rash Course Course 1215: Past medical records reviewed. The patient was evaluated in room B07. A complete history and physical exam was performed. 1445: Upon reevaluation, the patient was resting more comfortably. Administered Medications Discontinued Medications Acetaminophen (Tylenol) 1,000 mg PO NOW STA Stop: 07/11/19 14:50 Last Admin: 07/11/19 15:00 Dose: 1,000 mg Documented by: [id number] Fentanyl Citrate (Fentanyl Citrate) 50 mcg IV NOW STA Stop: 07/11/19 12:30 Last Admin: 07/11/19 12:58 Dose: 50 mcg Documented by: [id number] Ondansetron HCl (Zofran) 4 mg IV NOW STA Stop: 07/11/19 12:30 Last Admin: 07/11/19 12:58 Dose: 4 mg Documented by: [id number] Medical Decision Making Differential Diagnosis Differential Diagnosis includes but is not limited to closed head injury, lumbar radiculopathy, sacral fracture dehydration, stroke, anemia, hypoglycemia, hyponatremia, hypernatremia, urinary tract infection, pneumonia, bronchitis, sepsis, gastroenteritis, additional abdominal pathology, metabolic abnormalities and infections. Medical Records Attestation: I reviewed the patient's medical records. Home Medications Current Medication List: was personally reviewed by me Laboratory Data Attestation: I reviewed the patient's lab results. Result diagrams: 07/11/19 12:50 07/11/19 12:50 Lab Results 07/11/19 07/11/19 07/11/19 Range/Units 12:50 12:50 12:50 WBC 6.20 (4.8-10.8) K/uL RBC 4.18 L (4.2-5.4) M/uL Hgb 10.7 L (12.0-16.0) g/dL Hct 32.7 L (37-47) % MCV 78.2 L (80-100) fL MCH 25.6 (25-34) pg MCHC 32.7 (32-36) g/dL RDW Std Deviation 45.4 (36.4-46.3) fL RDW Coeff of Sunitha 15.9 H (11.5-14.5) % Plt Count 178 (130-400) K/uL MPV 9.2 (7.4-10.4) fL Immature Gran % (Auto) 0.2 % Neut % (Auto) 78.7 % Lymph % (Auto) 11.3 % [place] % (Auto) 8.9 % Eos % (Auto) 0.6 % Baso % (Auto) 0.3 % Immature Gran # (Auto) 0.01 (0.00-0.02) K/uL Neut # (Auto) 4.88 (1.4-6.5) K/uL Lymph # (Auto) 0.70 L (1.2-3.4) K/uL [place] # (Auto) 0.55 (0.11-0.59) K/uL Eos # (Auto) 0.04 (0-0.5) K/uL Baso # (Auto) 0.02 (0-0.2) K/uL Sodium 137 (136-145) mmol/L Potassium 4.0 (3.5-5.1) mmol/L Chloride 104 (98-107) mmol/L Carbon Dioxide 26 (21-32) mmol/L Anion Gap 7.0 (3-11) BUN 11 (7-18) mg/dl Creatinine 1.02 (0.6-1.2) mg/dl Est Cr Clr Drug Dosing 53.9 ml/min Est GFR ( Amer) 63.2 Est GFR (Non-Af Amer) 54.5 BUN/Creatinine Ratio 10.7 (10-20) Glucose 197 H (70-99) mg/dl Calcium 8.6 (8.5-10.1) mg/dl Total Bilirubin 0.3 (0.2-1) mg/dl AST 31 (15-37) U/L ALT 25 (12-78) U/L Alkaline Phosphatase 109 (45-117) U/L Total Creatine Kinase 478 H (26-192) U/L Troponin I 0.018 (0-0.045) ng/ml Total Protein 7.4 (6.4-8.2) gm/dl Albumin 3.6 (3.4-5.0) gm/dl Globulin 3.8 (2.5-4.0) gm/dl Albumin/Globulin Ratio 0.9 (0.9-2) Urine Color Urine Appearance (Clear) Urine pH (4.5-7.5) Ur Specific [place] (1.000-1.030) Urine Protein (Negative) Urine Glucose (UA) (Negative) Urine Ketones (Negative) Urine Blood (Negative) Urine Nitrite (Negative) Urine Bilirubin (Negative) Urine Urobilinogen (Negative) Ur Leukocyte Esterase (Negative) Urine WBC (Auto) (0-5) /hpf Urine RBC (Auto) (0-4) /hpf U Hyaline Cast (Auto) (0-5) /lpf U Epithel Cells (Auto) (0-5) /lpf Urine Bacteria (Auto) (Negative) 07/11/19 Range/Units 15:48 WBC (4.8-10.8) K/uL RBC (4.2-5.4) M/uL Hgb (12.0-16.0) g/dL Hct (37-47) % MCV (80-100) fL MCH (25-34) pg MCHC (32-36) g/dL RDW Std Deviation (36.4-46.3) fL RDW Coeff of Sunitha (11.5-14.5) % Plt Count (130-400) K/uL MPV (7.4-10.4) fL Immature Gran % (Auto) % Neut % (Auto) % Lymph % (Auto) % [place] % (Auto) % Eos % (Auto) % Baso % (Auto) % Immature Gran # (Auto) (0.00-0.02) K/uL Neut # (Auto) (1.4-6.5) K/uL Lymph # (Auto) (1.2-3.4) K/uL [place] # (Auto) (0.11-0.59) K/uL Eos # (Auto) (0-0.5) K/uL Baso # (Auto) (0-0.2) K/uL Sodium (136-145) mmol/L Potassium (3.5-5.1) mmol/L Chloride (98-107) mmol/L Carbon Dioxide (21-32) mmol/L Anion Gap (3-11) BUN (7-18) mg/dl Creatinine (0.6-1.2) mg/dl Est Cr Clr Drug Dosing ml/min Est GFR ( Amer) Est GFR (Non-Af Amer) BUN/Creatinine Ratio (10-20) Glucose (70-99) mg/dl Calcium (8.5-10.1) mg/dl Total Bilirubin (0.2-1) mg/dl AST (15-37) U/L ALT (12-78) U/L Alkaline Phosphatase (45-117) U/L Total Creatine Kinase (26-192) U/L Troponin I (0-0.045) ng/ml Total Protein (6.4-8.2) gm/dl Albumin (3.4-5.0) gm/dl Globulin (2.5-4.0) gm/dl Albumin/Globulin Ratio (0.9-2) Urine Color Yellow Urine Appearance Cloudy A (Clear) Urine pH 6.0 (4.5-7.5) Ur Specific [place] 1.021 (1.000-1.030) Urine Protein Trace H (Negative) Urine Glucose (UA) Trace H (Negative) Urine Ketones 1+ H (Negative) Urine Blood Negative (Negative) Urine Nitrite Negative (Negative) Urine Bilirubin Negative (Negative) Urine Urobilinogen Negative (Negative) Ur Leukocyte Esterase Negative (Negative) Urine WBC (Auto) 1-5 (0-5) /hpf Urine RBC (Auto) 5-10 H (0-4) /hpf U Hyaline Cast (Auto) 1-5 (0-5) /lpf U Epithel Cells (Auto) 20-30 H (0-5) /lpf Urine Bacteria (Auto) Negative (Negative) Imaging Data Radiologist's Impression: Radiology results as stated below per my review and the radiologist's interpretation: CT head/brain wo con CLINICAL HISTORY: 73 years-old Female with CHI. Acute head injury TECHNIQUE: Multiple axial CT images of the head were obtained without contrast. A dose lowering technique was utilized adhering to the principles of ALARA. CT DOSE: 537.48 mGy.cm COMPARISON: Head CT 05/01/2019 FINDINGS: No acute intracranial hemorrhage, midline shift, intracranial mass, hydrocephalus, territorial ischemia or abnormal extra-axial collection. Age- related involutional changes. Patchy white matter hypodensities suggest chronic microvascular ischemic disease. Cerebral vascular calcifications. The calvarium is intact. Moderate to severe mucosal thickening of the ethmoid air cells with mild to moderate coastal thickening of the maxillary sinuses demonstrating air-fluid levels. Hypoplastic frontal sinuses. Findings are suggestive of remote left orbital floor fracture. Soft tissues are unremarkable. Prior bilateral lens replacement. IMPRESSION: No acute intracranial abnormality or calvarial fracture. ACT 112: Negative or not required by law. The above report was generated using voice recognition software. It may contain grammatical, syntax or spelling errors. Electronically signed by: Philip Adam M.D. 07/11/2019 1:13 PM XR lumbar spine min 4V routine HISTORY: 73 years-old Female fall with low back pain acute low back pain status post fall COMPARISON: Lumbar spine radiographs 10/11/2017 TECHNIQUE: 5 views of the lumbar spine FINDINGS: Soft tissues are unremarkable. 5 lumbar type vertebral segments are present. Severe disc space narrowing at the L1-L2 and L5-S1 with moderate disc space narrowing at L2-L3. Moderate multilevel spondylitic spurring with severe m ultilevel facet arthrosis. 4 mm anterolisthesis L4 on L5, likely secondary to long-standing facet arthrosis. IMPRESSION: 1. No acute fracture or subluxation. 2. Degenerative changes as above. ACT 112: Negative or not required by law. The above report was generated using voice recognition software. It may contain grammatical, syntax or spelling errors. Electronically signed by: Philip Adam M.D. 07/11/2019 2:22 PM XR hip RT min 2V HISTORY: 73 years-old Female right hip contusion acute right hip and low back pain without reported trauma COMPARISON: Pelvis radiograph 05/01/2018 TECHNIQUE: 2 views the right hip FINDINGS: Moderate right hip osteoarthritis. Prominent marginal osteophytic spurring of the greater trochanter. Soft tissue calcifications project over the lateral tissues of the hip. Mild lateral soft tissue prominence. There is no acute fracture, dislocation or avascular necrosis. IMPRESSION: No acute fracture or dislocation. ACT 112: Negative or not required by law. The above report was generated using voice recognition software. It may contain grammatical, syntax or spelling errors. Electronically signed by: Philip Adam M.D. 07/11/2019 2:19 PM ECG Data Attestation: I personally reviewed and interpreted this ECG as follows: Indication: + other (fall) Rate (beats per minute): 73 Rhythm: + other (atrially paced) ECG ST segments: no ST depression and no ST elevation ECG Findings: + Other (nonspecific QRS prolongation); no PACs and no PVCs Additional Comments: An order for cardiac monitoring was placed and the patient is found to be in an atrially paced rhythm at 73 bpm. Blood Pressure Blood Pressure Findings: Normal blood pressure Blood Pressure Disposition: did not require urgent referral MDM Narrative This patient was evaluated and appeared to be in no significant distress. IV access was obtained and laboratory work was drawn. The patient was placed on the teletypesetter monitor and reveals an atrially paced rhythm at 73 bpm. EKG confirms this finding. CT imaging of the head was performed and is negative for acute pathology. Lumbar spine x-rays were performed and revealed no evidence o f acute fracture but significant degenerative change. Laboratory work is reassuring and urinalysis is clear. Patient was given 1 g of p.o. Tylenol and ambulated well with the help of a walker. We are unable at this time to get into contact with the patient's niece, Alyssa. A second attempt to transportation was made. Patient states she calls [employer] when she needs assistance. The phone number the patient provided is a Hara. Given that the patient was on the floor for several hours before she could obtain assistance from her neighbor, has numbers that are currently not working and does not have a life alert button, I do not feel it is in her best interest to be discharged home to her apartment alone [facility], even if transportation is arranged. [facility] will be contacted for further care and case management consultation. Impression & Plan Ambulatory dysfunction, Accidental fall from chair, Living alone Discharge Plan Visit Data Chief Complaint: Fall Stated Complaint: fall/tailbone pain ED Provider: Shaina Marcum Discharge Problem: Ambulatory dysfunction, Accidental fall from chair, Living alone Patient Disposition: Home - Self-Care Condition: Good Discharge Instructions Rachel/Other Patient Handouts: ED Prevention Fall Activity Restrictions/Additional Instructions: Diagnosis: Ambulatory dysfunction, accidental fall from a chair Please follow-up with your primary care physician within the next 1 to 2 weeks for reevaluation. Continue your medications as prescribed. Consider obtaining a life alert button for better ability to obtain assistance when needed. Return to the emergency department for worsening of symptoms or any medical conc erns. Forms Stand Alone Forms: [facility], Important Visit Information Prescriptions Prescriptions: No Action atorvastatin 80 mg tablet 80 mg PO HS RF: 0 trazodone 50 mg tablet 100 mg PO HS RF: 0 sertraline 100 mg tablet 150 mg PO QAM RF: 0 metformin 1,000 mg tablet 1,000 mg PO BID RF: 0 lisinopril 10 mg tablet 10 mg PO QAM RF: 0 omeprazole 20 mg capsule,delayed release(DR/EC) 20 mg PO DAILYBB RF: 0 Januvia 100 mg tablet 100 mg PO QAM RF: 0 Basaglar KwikPen U-100 Insulin 100 unit/mL (3 mL) insulin pen 24 unit subcut QAM RF: 0 aspirin 81 mg Tablet,Delayed Release (Dr/Ec) 81 mg PO QAM Qty: 0 RF: 0 levothyroxine 125 mcg tablet 125 mcg PO QAM RF: 0 amoxicillin-pot clavulanate 875-125 mg tablet 1 tab PO BID RF: 0 loratadine 10 mg Tablet 10 mg PO DAILY PRN (Reason: Allergy Symptoms) RF: 0 Referrals Referrals: Carmelo Cole MD [Primary Care Provider] - Discharge Problem: Accidental fall from chair Qualifiers: Encounter type: initial encounter Qualified Code(s): W07.XXXA - Fall from chair, initial encounter The scribe's documentation has been prepared under my direction and personally reviewed by me in its entirety. I confirm that the note above accurately reflects all work, treatment, procedures, and medical decision making performed by me.
[2019-07-11 13:56] LABS: Troponin I 0.018 ng/ml (0-0.045)
--- NOTE | 2019-07-11 14:21 | XRay Report ---
XR hip RT min 2V HISTORY: 73 years-old Female right hip contusion acute right hip and low back pain without reported trauma COMPARISON: Pelvis radiograph 05/01/2018 TECHNIQUE: 2 views the right hip FINDINGS: Moderate right hip osteoarthritis. Prominent marginal osteophytic spurring of the greater trochanter. Soft tissue calcifications project over the lateral tissues of the hip. Mild lateral soft tissue pro minence. There is no acute fracture, dislocation or avascular necrosis. IMPRESSION: No acute fracture or dislocation. ACT 112: Negative or not required by law. The above report was generated using voice recognition software. It may contain grammatical, syntax o r spelling errors. Electronically signed by: Philip Adam M.D. 07/11/2019 2:19 PM
--- NOTE | 2019-07-11 14:23 | XRay Report ---
XR lumbar spine min 4V routine HISTORY: 73 years-old Female fall with low back pain acute low back pain status post fall COMPARISON: Lumbar spine radiographs 10/11/2017 TECHNIQUE: 5 views of the lumbar spine FINDINGS: Soft tissues are unremarkable. 5 lumbar type vertebral segments are present. Severe disc space narrow ing at the L1-L2 and L5-S1 with moderate disc space narrowing at L2-L3. Moderate multilevel spondylit ic spurring with severe multilevel facet arthrosis. 4 mm anterolisthesis L4 on L5, likely secondary t o long-standing facet arthrosis. IMPRESSION: 1. No acute fracture or subluxation. 2. Degenerative changes as above. ACT 112: Negative or not required by law. The above report was generated using voice recognition software. It may contain grammatical, syntax o r spelling errors. Electronically signed by: Philip Adam M.D. 07/11/2019 2:22 PM
[2019-07-11] MEDS ORDERED: ACETAMINOPHEN 500 MG TAB PO STA (14:49)
[2019-07-11 16:02] LABS: Appearance Urine Cloudy (Clear); Bacteria Urine Automated Negative (Negative); Bilirubin Urine Negative (Negative); Blood Urine Negative (Negative); Color Urine Yellow; Epithelial Cell Urine Auto 20-30 /lpf (0-5); Glucose Urine UA Trace (Negative); Ketones Urine 1+ (Negative); Leukocyte Esterase Urine Negative (Negative); Nitrite Urine Negative (Negative); Protein Urine Trace (Negative); Specific Gravity Urine 1.021 (1.000-1.030); Urobilinogen Urine Negative (Negative)
--- NOTE | 2019-07-11 18:03 | History & Physical Report ---
Date of Service July 11, 2019 Assessment & Plan (1) Fall: (2) Ambulatory dysfunction: -Admit to MedSurg -Patient presenting from home after she fell out of her recliner chair and laid on the floor for 6 hours -In the ED, lumbar spine x-ray, right hip x-ray, head CT all negative for acute findings -Patient was able to ambulate with walker in ED -will admit for observation and PT/OT eval's, may need short-term rehab placement -If patient develops worsening hip pain or ambulatory dysfunction, consider hip CT for further evaluation (3) Elevated CK: -Total CK 478 -Likely from prolonged period of time on floor -IVF, follow CK in a.m. (4) Hypertension: -BP controlled, continue lisinopril (5) DM type 2 (diabetes mellitus, type 2): -Hgb A1c 7.2 03/2019 -Continue home dose of Lantus, hold oral agents and utilize NovoLog per protocol while hospitalized (6) Postsurgical hypothyroidism: -Low TSH and elevated T4 noted on outpatient labs from 03/2019 -Check TSH with reflexive T4 -Continue home dose levothyroxine for now (7) Sick sinus syndrome: (8) Pacemaker: -No acute issues (9) GERD (gastroesophageal reflux disease): -Continue PPI (10) Major depression: -Continue sertraline and trazodone (11) DVT prophylaxis: -SQ Lovenox History of Present Illness Chief Complaint: Fall Primary Care Provider: Carmelo Cole MD 73-year-old female who presents the ED for evaluation after suffering a fall at home. Patient reports she slid out of her recliner chair. She is unsure of exactly how she fell. She did not strike her head or have loss of consciousness. Patient reports she laid on the ground for 6 hours before being able to get her neighbors attention for help. Patient was then brought to the ED for further evaluation. Patient was seen in her PCPs office yesterday for sinus congestion. She was placed on Augmentin for sinusitis. Patient reports a minimal nonproductive cough. No fevers or chills. She denies chest pain shortness of breath. No lightheadedness, dizziness, diaphoresis, syncopal events. She denies abdominal pain, nausea, vomiting, diarrhea. No urinary symptoms. In the ED, head CT, lumbar spine x-ray, hip x-rays are negative for acute findings. Labs are unremarkable. Allergies Allergy/AdvReac Type Severity Reaction Status Date / Time No Known Allergies Allergy Unknown Verified 07/11/19 12:43 Home Medications Home Medications Medication Instructions Recorded Confirmed Type Joon HodgesPen U-100 Insulin 24 unit SUBCUT QAM 12/16/18 07/11/19 History Januvia 100 mg PO QAM 12/16/18 07/11/19 History atorvastatin 80 mg PO HS 12/16/18 07/11/19 History lisinopril 10 mg PO QAM 12/16/18 07/11/19 History metformin 1,000 mg PO BID 12/16/18 07/11/19 History omeprazole 20 mg PO DAILYBB 12/16/18 07/11/19 History sertraline 150 mg PO QAM 12/16/18 07/11/19 History trazodone 100 mg PO HS 12/16/18 07/11/19 History aspirin 81 mg PO QAM #0 tab 12/18/18 07/11/19 Rx levothyroxine 125 mcg PO QAM 05/01/19 07/11/19 History amoxicillin-pot clavulanate 1 tab PO BID 07/11/19 07/11/19 History loratadine 10 mg PO DAILY PRN 07/11/19 07/11/19 History Past Med/Surg History Medical History DM type 2 (diabetes mellitus, type 2) GERD (gastroesophageal reflux disease) Hypertension Major depression (Chronic) Pacemaker Patent foramen ovale (Chronic Unknown) Postsurgical hypothyroidism Sick sinus syndrome Surgical History H/O total shoulder replacement (Chronic) "right shoulder" H/O: hysterectomy (Resolved) History of appendectomy (Resolved) S/P thyroidectomy (Chronic) S/p total knee replacement, bilateral (Chronic) Family History Mother Diabetes Father Heart disease Social History Preferred Language: [place] Communication Ability: Effective Visual Impairment: No Limitations Hearing Ability: Normal Dock Manager Required: No Beliefs That Will Affect Care: None Current Living Situation: Alone Current Living Situation Comment: own apt in Sr living facility-home checks from [facility] Other Information That Helps Us Care for You: No Feels Safe at Home: Yes Safety Concerns: Feels Safe At This Time Smoking Status: Never smoker Hx Alcohol Use: No Hx Substance Use: No Review of Systems Review of Systems: ROS per HPI, all other systems reviewed and negative Physical Exam Constitutional: WD/WN, vitals as above Eyes: PERRL, conjunctivae normal, anicteric sclerae ENMT: external ear and nose normal, oropharynx normal Respiratory: normal respiratory effort, lungs clear to auscultation Cardiovascular: Rate/Rhythm: regular rate and regular rhythm Heart Sounds: + murmur (Grade 3/6 systolic) Vessels: normal peripheral pulses Extremities: no edema Gastrointestinal (Abdomen): normal bowel sounds, soft, nontender, no hepatosplenomegaly Musculoskeletal: no cyanosis or clubbing, extremities motor strength 5/5 Tenderness and bruising noted over right ischial tuberosity Skin: no rashes, warm and dry Neurologic: PERRL, EOMI, accommodation nl, no face palsy, no dysarthria Psychiatric: A+Ox3, euthymic affect Results & Data Vital Signs (Past 12 Hours) Vital Signs Temp Pulse Pulse Resp BP BP Pulse Ox 07/11/19 16:00 70 22 127/63 95 07/11/19 15:40 79 20 122/58 L 94 07/11/19 14:00 86 18 140/68 94 07/11/19 12:35 96 07/11/19 12:05 37.4 C 78 18 122/66 97 Laboratory Results Short CBC 07/11/19 Range/Units 12:50 WBC 6.20 (4.8-10.8) K/uL Hgb 10.7 L (12.0-16.0) g/dL Hct 32.7 L (37-47) % Plt Count 178 (130-400) K/uL BMP 07/11/19 12:50 Sodium 137 Potassium 4.0 Chloride 104 Carbon Dioxide 26 BUN 11 Creatinine 1.02 Glucose 197 H Calcium 8.6 Cardiac Enzymes 07/11/19 07/11/19 Range/Units 12:50 12:50 Total Creatine Kinase 478 H (26-192) U/L Troponin I 0.018 (0-0.045) ng/ml Liver Function 07/11/19 Range/Units 12:50 Total Bilirubin 0.3 (0.2-1) mg/dl AST 31 (15-37) U/L ALT 25 (12-78) U/L Alkaline Phosphatase 109 (45-117) U/L Albumin 3.6 (3.4-5.0) gm/dl Urine 07/11/19 Range/Units 15:48 Urine Color Yellow Urine Appearance Cloudy A (Clear) Urine pH 6.0 (4.5-7.5) Ur Specific [place] 1.021 (1.000-1.030) Urine Protein Trace H (Negative) Urine Glucose (UA) Trace H (Negative) Diagnostic Findings RIGHT HIP X-RAY IMPRESSION: No acute fracture or dislocation. LUMBAR SPINE X-RAY IMPRESSION: 1. No acute fracture or subluxation. 2. Degenerative changes as above. HEAD CT IMPRESSION: No acute intracranial abnormality or calvarial fracture. Code Status & VTE Plan Code Status Patient is a full code as per my discussion with her. VTE Prophylaxis Plan VTE Prophylaxis will be ordered: Yes Supervising Physician Co-Signing Physician Notes Attending Addendum: care coordinated with SUGAR Saucedo please refer to her notes for full details, I agree with her notes patient seen and examined, records reviewed by myself as well on exam, patient seen resting in bed, comfortable no active symptoms- denies hip pain, leg pain reports that this is her 3rd fall- legs feel weak leading to fall no other symptoms VS noted and reviewed oriented x 3, not in distress, speaks in sentences with no effort nor accessory muscle use normal rate, regular rhythm, no murmurs clear breath sounds bilaterally non distended, soft, nontender (+) mild hematoma posterior right hip/buttock region no bipedal edema, erythema, warmth no neuro deficits WBC 6.2 Hg 10.7 Crea 1.02 ASSESSMENT AND PLAN> s/p FALL, RECURRENT AMBULATORY DYSFUNCTION most likely from deconditioning, DM neuropathy? denies syncope/presyncope, prodrome- feels her legs just feels weak, give out order CT hip if pain not improving to r/o fracture PT/OT evaluation SICK SINUS SYNDROME, S/P PACEMAKER no cardiac symptoms HYPERTENSION continue Lisinopril DM 2 ISS other diagnoses and plan of care as per SUGAR Saucedo notes Tylor Briscoe MD
[2019-07-11] MEDS ORDERED: DEXTROSE 50% 50 ML SYRINGE IV PRN (18:28)
[2019-07-11] MEDS ORDERED: CARBOHYDRATES FOR HYPOGLYCEMIA PO PRN (18:28)
[2019-07-11] MEDS ORDERED: GLUCOSE 10 TABS/TUBE PO PRN (18:28)
[2019-07-11] MEDS ORDERED: GLUCOSE 40% GEL 15 GM TUBE PO PRN (18:28)
[2019-07-11] MEDS ORDERED: SODIUM CHLORIDE 0.9% 1000ML 1,000 ML IV SCH (18:28)
[2019-07-11] MEDS ORDERED: GLUCAGON FOR INJ 1 MG VIAL SQ PRN (18:28)
[2019-07-11 18:42] LABS: Thyroid Stimulating Hormone 0.692 uIu/ml (0.300-4.500)
[2019-07-11] MEDS: ENOXAPARIN INJ 40 MG/0.4 ML SYR SQ SCH (19:47)
[2019-07-11] MEDS: TRAZODONE HCL 100 MG TAB PO SCH (20:12)
[2019-07-11] MEDS: ATORVASTATIN 40 MG TAB PO SCH (20:13)
[2019-07-11] MEDS: AMOXICILLIN/CLAVULANATE 875 MG TAB PO SCH (20:13)
[2019-07-11] MEDS: INSULIN ASPART 100 UNITS/ML 3 ML PEN SC SCH (21:52)
[2019-07-12 05:47] LABS: Hematocrit (blood only) 32.3 % (37-47); Hemoglobin 10.1 g/dL (12.0-16.0); Mean Corpuscular Hgb Conc 31.3 g/dL (32-36); Mean Platelet Volume 9.1 fL (7.4-10.4); Platelet Count 169 K/uL (130-400); RDW Coefficient of Variation 16.3 % (11.5-14.5); RDW Standard Deviation 47.6 fL (36.4-46.3); Red Blood Count 4.04 M/uL (4.2-5.4); White Blood Count 4.87 K/uL (4.8-10.8)
[2019-07-12] MEDS: LEVOTHYROXINE SODIUM 125 MCG TABLET PO SCH (06:09)
[2019-07-12 06:10] LABS: BUN Creatinine Ratio 9.8 (10-20); Calcium 8.2 mg/dl (8.5-10.1); Creatinine Clr Calc Pharmacy 56.7 ml/min; Est GFR (African American) 67.2; Est GFR (Non-African American) 57.9; Potassium 3.8 mmol/L (3.5-5.1)
[2019-07-12] MEDS: SERTRALINE HCL 50 MG TABLET PO SCH (08:22)
[2019-07-12] MEDS: AMOXICILLIN/CLAVULANATE 875 MG TAB PO SCH ×2 (08:22→20:41)
[2019-07-12] MEDS: lisinopriL 10 MG TAB PO SCH (08:23)
[2019-07-12] MEDS: ASPIRIN 81 MG ECTAB PO SCH (08:23)
[2019-07-12] MEDS: PANTOprazole 40 MG TAB PO SCH (08:23)
[2019-07-12] MEDS: INSULIN GLARGINE SOLOSTAR 100 UNITS/ML 3 ML PEN SQ SCH (08:25)
[2019-07-12] MEDS: INSULIN ASPART 100 UNITS/ML 3 ML PEN SC SCH ×4 (08:26→20:42)
[2019-07-12] MEDS: ACETAMINOPHEN 325 MG TAB PO PRN ×2 (14:00→19:33)
--- NOTE | 2019-07-12 14:13 | Electrocardiogram Report ---
Test Reason : Blood Pressure : / mmHG Vent. Rate : 073 BPM Atrial Rate : 073 BPM P-R Int : 168 ms QRS Dur : 104 ms QT Int : 444 ms P-R-T Axes : 063 048 074 degrees QTc Int : 489 ms Atrial-paced rhythm Non-specific intra-ventricular conduction delay Abnormal ECG When compared with ECG of 17-DEC-2018 13:16, Electronic atrial pacemaker has replaced Sinus rhythm Confirmed by Vern Mojica ([id number]) on 07/12/2019 2:12:41 PM Referred By: REFERRED SELF Confirmed By:Vern Mojica
--- NOTE | 2019-07-12 14:40 | Hospitalist Progress Note ---
Date of Service July 12, 2019 Assessment & Plan (1) Fall: (2) Ambulatory dysfunction: Present to the ER after falling on her recliner Lumbar spine xray showed no acute fracture or subluxation. Hip Xray showed no acute fracture or dislocation. CT head showed no acute intracranial abnormality or calvarial fracture. Continue PT/OT Pt lives alone and would like to go to rehab Fall precaution (3) Elevated CK: CK level on admission 478 Received IVF and CK 298 today Stable (4) Hypertension: BP controlled continue lisinopril (5) DM type 2 (diabetes mellitus, type 2): Last Hgb A1c 7.2 on 03/2019 Bar check Hba1c Continue to hold oral dm med Continue home dose of Lantus (6) Postsurgical hypothyroidism: TSH wnl Continue levothyroxine (7) Sick sinus syndrome: (8) Pacemaker: No acute issues (9) GERD (gastroesophageal reflux disease): Continue PPI (10) Major depression: Continue sertraline and trazodone (11) DVT prophylaxis: SQ Lovenox Disposition Waiting for placement Subjective Pt was seen and examined Lying in bed with no distress Pt said that she is having a headache She said that she is sore in her buttock area She is interested to go to rehab She continues to have a dry cough She said that her chest hurt when she coughs Denies any chest pain, palpitation, dizziness and SOB Physical Exam Physical Exam: General- No acute distress Head- atraumatic Eyes- PERRL, EOMI, ENT- oropharynx clear Neck- supple, no JVD Lungs- clear to auscultation Heart- regular rhythm; +murmur Abdomen- normal bowel sounds, soft, nontender Extremities- no calf tenderness Neuro- alert, oriented x 3; PERRL, EOMI; no facial palsy; no dysarthria Skin- warm & dry, bruises in buttock area Results & Data Vital Signs (Past 12 Hours) Vital Signs Temp Pulse Resp BP Pulse Ox 07/12/19 07:13 37.3 C 67 20 123/77 94
[2019-07-12] MEDS: guaiFENesin SUGAR FREE 100 MG/5 ML UDC PO SCH ×3 (14:50→21:28)
[2019-07-12] MEDS: ENOXAPARIN INJ 40 MG/0.4 ML SYR SQ SCH (19:31)
[2019-07-12] MEDS: IBUPROFEN 200 MG TAB PO PRN (20:41)
[2019-07-12] MEDS: TRAZODONE HCL 100 MG TAB PO SCH (20:41)
[2019-07-12] MEDS: ATORVASTATIN 40 MG TAB PO SCH (20:42)
[2019-07-12] MEDS: KETOROLAC TROMETHAMINE 15 MG/ML VIAL IV PRN (21:28)
[2019-07-13] MEDS: guaiFENesin SUGAR FREE 100 MG/5 ML UDC PO SCH ×6 (02:31→20:57)
[2019-07-13] MEDS: LEVOTHYROXINE SODIUM 125 MCG TABLET PO SCH (06:04)
[2019-07-13] MEDS: INSULIN ASPART 100 UNITS/ML 3 ML PEN SC SCH ×4 (08:31→21:22)
[2019-07-13] MEDS: INSULIN GLARGINE SOLOSTAR 100 UNITS/ML 3 ML PEN SQ SCH (08:31)
[2019-07-13] MEDS: SERTRALINE HCL 50 MG TABLET PO SCH (08:33)
[2019-07-13] MEDS: ASPIRIN 81 MG ECTAB PO SCH (08:33)
[2019-07-13] MEDS: PANTOprazole 40 MG TAB PO SCH (08:33)
[2019-07-13] MEDS: lisinopriL 10 MG TAB PO SCH (08:33)
[2019-07-13] MEDS: AMOXICILLIN/CLAVULANATE 875 MG TAB PO SCH ×2 (08:33→20:56)
[2019-07-13] MEDS: KETOROLAC TROMETHAMINE 15 MG/ML VIAL IV PRN (15:39)
[2019-07-13] MEDS: ACETAMINOPHEN 325 MG TAB PO PRN (17:31)
--- NOTE | 2019-07-13 18:07 | Hospitalist Progress Note ---
Date of Service July 13, 2019 Assessment & Plan (1) Fall: (2) Ambulatory dysfunction: Present to the ER after falling on her recliner Lumbar spine xray showed no acute fracture or subluxation. Hip Xray showed no acute fracture or dislocation. CT head showed no acute intracranial abnormality or calvarial fracture. Continue PT/OT Pt lives alone and would like to go to rehab Fall precaution (3) Elevated CK: CK level on admission 478 Received IVF and CK 298 today Stable (4) Hypertension: BP controlled continue lisinopril (5) DM type 2 (diabetes mellitus, type 2): Last Hgb A1c 7.2 on 03/2019 Bar check Hba1c in am Continue to hold oral dm med Continue home dose of Lantus (6) Postsurgical hypothyroidism: TSH wnl Continue levothyroxine (7) Sick sinus syndrome: (8) Pacemaker: No acute issues (9) GERD (gastroesophageal reflux disease): Continue PPI (10) Major depression: Continue sertraline and trazodone Left ear/mandible/temporal area tenderness Possible due to the fall Continue pain control and warm compress Consider to add low dose baclofen (11) DVT prophylaxis: SQ Lovenox Disposition Waiting for placement Subjective Pt was seen and examined Lying in bed with no distress Pt said that she having pain around her left ear, cheek and mandible area She said that she must have hurt the left side of face when she fell She said that the pain is sharp and worsening when touching the area or turning her head to the right side Denies any chest pain, palpitation, dizziness and SOB Physical Exam Physical Exam: General- No acute distress Head- atraumatic Eyes- PERRL, EOMI, ENT- Left ear and temporal area tenderness Neck- supple, left side neck tenderness Lungs- clear to auscultation Heart- regular rhythm; +murmur Abdomen- normal bowel sounds, soft, nontender Extremities- no calf tenderness Neuro- alert, oriented x 3; PERRL, EOMI; no facial palsy; no dysarthria Skin- warm & dry, bruises in buttock area Results & Data Vital Signs (Past 12 Hours) Vital Signs Temp Pulse Resp BP Pulse Ox 07/13/19 15:00 37.0 C 69 20 146/77 H 95 07/13/19 07:00 36.6 C 77 18 147/71 H 99
[2019-07-13] MEDS: ENOXAPARIN INJ 40 MG/0.4 ML SYR SQ SCH (19:46)
[2019-07-13] MEDS: IBUPROFEN 200 MG TAB PO PRN (19:46)
[2019-07-13] MEDS: TRAZODONE HCL 100 MG TAB PO SCH (20:56)
[2019-07-13] MEDS: ATORVASTATIN 40 MG TAB PO SCH (20:56)
[2019-07-13] MEDS ORDERED: OXYCODONE HCL IR 5 MG TAB (IMMEDIATE RELEASE) PO PRN (21:07)
[2019-07-13] MEDS ORDERED: MoRPHine SULFATE 2 MG/ML CARP IV PRN (21:12)
[2019-07-13] MEDS ORDERED: KETOROLAC TROMETHAMINE 15 MG/ML VIAL IV ONE (22:03)
--- NOTE | 2019-07-13 22:32 | CT Scan Report ---
CT cervical spine wo con CT DOSE: 459.97 mGycm HISTORY: Pain. Trauma. L neck pain, hx trauma TECHNIQUE: Multiaxial CT images of the cervical spine were performed and reformatted in the sagittal and coronal plane without the use of contrast. A dose lowering technique was utilized adhering to th e principles of ALARA. COMPARISON: 05/01/2019 FINDINGS: No fractures. No subluxation. Prevertebral soft tissues and the C1-C2 interval are intact. No pneumothorax. Generalized degenerative disc change. No evidence for compression deformity. Moderate anterior and posterior osteophyte changes throughout. Posterior elements are intact. Prevertebral soft tissues are unremarkable. IMPRESSION: 1. Generalized degenerative change. 2. No acute process. ACT 112: Negative or not required by law. The above report was generated using voice recognition software. It may contain grammatical, syntax or spelling errors. Electronically signed by: Carmelo Kwong M.D. 07/13/2019 10:30 PM
--- NOTE | 2019-07-13 22:36 | CT Scan Report ---
Study: CT temporal bones HISTORY: Colon posttraumatic hearing loss Findings. Moderate mucosal thickening of the maxillary sinuses. Near-complete opacification of the et hmoid sinuses. Mild mucosal thickening of the sphenoid sinuses. Moderate hypertrophic change of the nasal turbinates. Findings consistent with what appears to be an old fracture of the left orbital floor. There is no ev idence for muscular entrapment. There is moderate fatty entrapment. There is minimal sclerosis of mastoid air cells. Structures of the middle ear unremarkable. There is no evidence for erosion of the scutum. IMPRESSION: 1. The middle ear structures are unremarkable. 2. Minimal sclerosis of the mastoid air cells bilaterally. 3. Mild to moderate mucosal thickening of all major sinuses with the ostiomeatal units occluded bilat erally. 4. Fracture left orbital floor probably old or pre-existing and present on a CT of the brain 0 Electronically signed by: Carmelo Kwong M.D. 07/13/2019 10:35 PM
--- NOTE | 2019-07-13 22:44 | Hospitalist Progress Note ---
Date of Service July 13, 2019 Subjective Patient complaining of increased left ear pain with radiation to the left neck. No fever, no otorrhea, no dizziness. Patient denies manipulation. PPE : Left ear : No discharge, tragal tenderness, swollen EAC, TM not fully visualized. AP Otitis externa left Topical Cipro hydrocortisone course We relay to AM provider. Results & Data Vital Signs (Past 12 Hours) Vital Signs Temp Pulse Resp BP Pulse Ox 07/13/19 15:00 37.0 C 69 20 146/77 H 95
[2019-07-13] MEDS ORDERED: IBUPROFEN 200 MG TAB PO PRN (23:03)
[2019-07-13] MEDS: CIPRO 0.2%/HYDROCORTISONE 1% OTIC SUSP 10 ML BTL OTL SCH (23:28)
[2019-07-14] MEDS: guaiFENesin SUGAR FREE 100 MG/5 ML UDC PO SCH ×4 (02:18→13:54)
[2019-07-14] MEDS: ACETAMINOPHEN 325 MG TAB PO PRN (03:21)
[2019-07-14] MEDS: LEVOTHYROXINE SODIUM 125 MCG TABLET PO SCH (06:16)
[2019-07-14 07:23] LABS: Creatinine Clr Calc Pharmacy 52.4 ml/min; Est GFR (Non-African American) 52.6
[2019-07-14 08:15] LABS: Estimated Average Glucose 171 mg/dl; Hemoglobin A1C 7.6 % (4.5-5.6)
[2019-07-14] MEDS: AMOXICILLIN/CLAVULANATE 875 MG TAB PO SCH (08:32)
[2019-07-14] MEDS: ASPIRIN 81 MG ECTAB PO SCH (08:32)
[2019-07-14] MEDS: CIPRO 0.2%/HYDROCORTISONE 1% OTIC SUSP 10 ML BTL OTL SCH (08:32)
[2019-07-14] MEDS: PANTOprazole 40 MG TAB PO SCH (08:32)
[2019-07-14] MEDS: SERTRALINE HCL 50 MG TABLET PO SCH (08:32)
[2019-07-14] MEDS: lisinopriL 10 MG TAB PO SCH (08:32)
[2019-07-14] MEDS: INSULIN ASPART 100 UNITS/ML 3 ML PEN SC SCH ×2 (08:33→13:55)
[2019-07-14] MEDS: INSULIN GLARGINE SOLOSTAR 100 UNITS/ML 3 ML PEN SQ SCH (08:35)
--- NOTE | 2019-07-14 14:14 | Hospitalist Progress Note ---
Date of Service July 14, 2019 Assessment & Plan (1) Fall: (2) Ambulatory dysfunction: Present to the ER after falling on her recliner Lumbar spine xray showed no acute fracture or subluxation. Hip Xray showed no acute fracture or dislocation. CT head showed no acute intracranial abnormality or calvarial fracture. Continue PT/OT Will discharge to rehab today Fall precaution (3) Elevated CK: CK level on admission 478 Received IVF and CK 298 today Stable (4) Hypertension: BP controlled continue lisinopril (5) DM type 2 (diabetes mellitus, type 2): Most recent Hba1c 7.6 on 07/14/19 Will resume oral DM meds on discharge Continue home dose of Lantus (6) Postsurgical hypothyroidism: TSH wnl Continue levothyroxine (7) Sick sinus syndrome: (8) Pacemaker: No acute issues (9) GERD (gastroesophageal reflux disease): Continue PPI (10) Major depression: Continue sertraline and trazodone Left Otitis externa Left ear/mandible/temporal area tenderness Continue pain control and warm compress Continue Cipro/hydrocortisone drops for 5 days Symptoms improves (11) DVT prophylaxis: SQ Lovenox Disposition discharge to [facility] today Subjective Pt was seen and examined Sitting in chair with no distress eating lunch Pt said that she feels much better today She said that the pain in her left hear and left sided neck improve Denies any chest pain, palpitation, dizziness and SOB Physical Exam Physical Exam: General- No acute distress Head- atraumatic Eyes- PERRL, EOMI, ENT- Left ear no drainage or pus, mild erythema in L ear Neck- supple, left side neck tenderness improves Lungs- clear to auscultation Heart- regular rhythm; +murmur Abdomen- normal bowel sounds, soft, nontender Extremities- no calf tenderness Neuro- alert, oriented x 3; PERRL, EOMI; no facial palsy; no dysarthria Skin- warm & dry, bruises in buttock area Results & Data Vital Signs (Past 12 Hours) Vital Signs Temp Pulse Pulse Resp BP BP Pulse Ox 07/14/19 13:10 36.8 C 69 60 18 151/71 H 167/82 H 98 07/14/19 07:39 36.8 C 60 18 167/82 H 98
--- NOTE | 2019-07-15 01:28 | Discharge Summary ---
Date of Service July 14, 2019 Admission HPI Per Admitting Provider 73-year-old female who presents the ED for evaluation after suffering a fall at home. Patient reports she slid out of her recliner chair. She is unsure of exactly how she fell. She did not strike her head or have loss of consciousness. Patient reports she laid on the ground for 6 hours before being able to get her neighbors attention for help. Patient was then brought to the ED for further evaluation. Patient was seen in her PCPs office yesterday for sinus congestion. She was placed on Augmentin for sinusitis. Patient reports a minimal nonproductive cough. No fevers or chills. She denies chest pain s hortness of breath. No lightheadedness, dizziness, diaphoresis, syncopal events. She denies abdominal pain, nausea, vomiting, diarrhea. No urinary symptoms. In the ED, head CT, lumbar spine x-ray, hip x-rays are negative for acute findings. Labs are unremarkable. Admission Exam Per Admitting Provider Constitutional: WD/WN, vitals as above Eyes: PERRL, conjunctivae normal, anicteric sclerae ENMT: external ear and nose normal, oropharynx normal Respiratory: normal respiratory effort, lungs clear to auscultation Cardiovascular: regular rate and regular rhythm Heart Sounds: + murmur (Grade 3/6 systolic) Vessels: normal peripheral pulses Extremities: no edema Gastrointestinal:normal bowel sounds, soft, nontender, no hepatosplenomegaly Musculoskeletal: no cyanosis or clubbing, extremities motor strength 5/5 Tenderness and bruising noted over right ischial tuberosity Skin: no rashes, warm and dry Neurologic: PERRL, EOMI, accommodation nl, no face palsy, no dysarthria Psychiatric: A+Ox3, euthymic affect Principal Diagnosis (1) Fall: (2) Ambulatory dysfunction: (3) Elevated CK: (4) Hypertension: (5) DM type 2 (diabetes mellitus, type 2) (6) Postsurgical hypothyroidism: (7) Sick sinus syndrome: (8) Pacemaker: (9) GERD (gastroesophageal reflux disease): (10) Major depression: (11) Left Otitis externa Discharge Exam General- No acute distress Head- atraumatic Eyes- PERRL, EOMI, ENT- Left ear no drainage or pus, mild erythema in L ear Neck- supple, left side neck tenderness improves Lungs- clear to auscultation Heart- regular rhythm; +murmur Abdomen- normal bowel sounds, soft, nontender Extremities- no calf tenderness Neuro- alert, oriented x 3; PERRL, EOMI; no facial palsy; no dysarthria Skin- warm & dry, bruises in buttock area Discharge Data Allergies Allergy/AdvReac Type Severity Reaction Status Date / Time No Known Allergies Allergy Unknown Verified 07/11/19 12:43 Consultations 07/11/19 16:58 ED Decision to Admit Stat 07/11/19 18:28 Consult Case Management - Discharge Planning Routine Ordered Studies 07/11/19 12:29 CT head/brain wo con Stat 07/13/19 22:01 CT cervical spine wo con Urgent CT temporal bones wo con Urgent CT head/brain wo con CLINICAL HISTORY: 73 years-old Female with CHI. Acute head injury TECHNIQUE: Multiple axial CT images of the head were obtained without contrast. A dose lowering technique was utilized adhering to the principles of ALARA. CT DOSE: 537.48 mGy.cm COMPARISON: Head CT 05/01/2019 FINDINGS: No acute intracranial hemorrhage, midline shift, intracranial mass, hydrocephalus, territorial ischemia or abnormal extra-axial collection. Age- related involutional changes. Patchy white matter hypodensities suggest chronic microvascular ischemic disease. Cerebral vascular calcifications. The calvarium is intact. Moderate to severe mucosal thickening of the ethmoid air cells with mild to moderate coastal thickening of the maxillary sinuses demonstrating air-fluid levels. Hypoplastic frontal sinuses. Findings are pereira ggestive of remote left orbital floor fracture. Soft tissues are unremarkable. Prior bilateral lens replacement. IMPRESSION: No acute intracranial abnormality or calvarial fracture. ACT 112: Negative or not required by law. The above report was generated using voice recognition software. It may contain grammatical, syntax or spelling errors. Electronically signed by: Philip Adam M.D. 07/11/2019 1:13 PM Dictated: 07/11/19 1309 Transcribed: 07/11/19 1309 XR lumbar spine min 4V routine HISTORY: 73 years-old Female fall with low back pain acute low back pain status post fall COMPARISON: Lumbar spine radiographs 10/11/2017 TECHNIQUE: 5 views of the lumbar spine FINDINGS: Soft tissues are unremarkable. 5 lumbar type vertebral segments are present. Severe disc space narrowing at the L1-L2 and L5-S1 with moderate disc space narrowing at L2-L3. Moderate multilevel spondylitic spurring with severe multilevel facet arthrosis. 4 mm anterolisthesis L4 on L5, likely secondary to long-standing facet arthrosis. IMPRESSION: 1. No acute fracture or subluxation. 2. Degenerative changes as above. ACT 112: Negative or not required by law. The above report was generated using voice recognition software. It may contain grammatical, syntax or spelling errors. Electronically signed by: Philip Adam M.D. 07/11/2019 2:22 PM Dictated: 07/11/19 1420 Transcribed: 07/11/19 1420 XR hip RT min 2V HISTORY: 73 years-old Female right hip contusion acute right hip and low back pain without reported trauma COMPARISON: Pelvis radiograph 05/01/2018 TECHNIQUE: 2 views the right hip FINDINGS: Moderate right hip osteoarthritis. Prominent marginal osteophytic spurring of the greater trochanter. Soft tissue calcifications project over the lateral tissues of the hip. Mild lateral soft tissue prominence. There is no acute fracture, dislocation or avascular necrosis. IMPRESSION: No acute fracture or dislocation. ACT 112: Negative or not required by law. The above report was generated using voice recognition software. It may contain grammatical, syntax or spelling errors. Electronically signed by: Philip Adam M.D. 07/11/2019 2:19 PM Dictated: 07/11/19 1418 Transcribed: 07/11/[address] cervical spine wo con CT DOSE: 459.97 mGycm HISTORY: Pain. Trauma. L neck pain, hx trauma TECHNIQUE: Multiaxial CT images of the cervical spine were performed and reformatted in the sagittal and coronal plane without the use of contrast. A dose lowering technique was utilized adhering to the principles of ALARA. COMPARISON: 05/01/2019 FINDINGS: No fractures. No subluxation. Prevertebral soft tissues and the C1-C2 interval are intact. No pneumothorax. Generalized degenerative disc change. No evidence for compression deformity. Moderate anterior and posterior osteophyte changes throughout. Posterior elements are intact. Prevertebral soft tissues are unremarkable. IMPRESSION: 1. Generalized degenerative change. 2. No acute process. ACT 112: Negative or not required by law. The above report was generated using voice recognition software. It may contain grammatical, syntax or spelling errors. Electronically signed by: Carmelo Kwong M.D. 07/13/2019 10:30 PM Dictated: 07/13/192228 Transcribed: 07/13/192228 Study: CT temporal bones HISTORY: Colon posttraumatic hearing loss Findings. Moderate mucosal thickening of the maxillary sinuses. Near-complete opacification of the ethmoid sinuses. Mild mucosal thickening of the sphenoid sinuses. Moderate hypertrophic change of the nasal turbinates. Findings consistent with what appears to be an old fracture of the left orbital floor. There is no evidence for muscular entrapment. There is moderate fatty entrapment. There is minimal sclerosis of mastoid air cells. Structures of the middle ear unremarkable. There is no evidence for erosion of the scutum. IMPRESSION: 1. The middle ear structures are unremarkable. 2. Minimal sclerosis of the mastoid air cells bilaterally. 3. Mild to moderate mucosal thickening of all major sinuses with the ostiomeatal units occluded bilaterally. 4. Fracture left orbital floor probably old or pre-existing and present on a CT of the brain 07/11/2019 Electronically signed by: Carmelo Kwong M.D. 07/13/2019 10:35 PM Dictated: 07/13/192230 Transcribed: 07/13/192230 Hospital Course (1) Fall: (2) Ambulatory dysfunction: Present to the ER after falling on her recliner Lumbar spine xray showed no acute fracture or subluxation. Hip Xray showed no acute fracture or dislocation. CT head showed no acute intracranial abnormality or calvarial fracture. Continue PT/OT Will discharge to rehab today Fall precaution (3) Elevated CK: CK level on admission 478 Received IVF and CK 298 today Stable (4) Hypertension: BP controlled continue lisinopril (5) DM type 2 (diabetes mellitus, type 2): Most recent Hba1c 7.6 on 07/14/19 Will resume oral DM meds on discharge Continue home dose of Lantus (6) Postsurgical hypothyroidism: TSH wnl Continue levothyroxine (7) Sick sinus syndrome: (8) Pacemaker: No acute issues (9) GERD (gastroesophageal reflux disease): Continue PPI (10) Major depression: Continue sertraline and trazodone Left Otitis externa Left ear/mandible/temporal area tenderness Continue pain control and warm compress Continue Cipro/hydrocortisone drops for 5 days Symptoms improves (11) DVT prophylaxis: SQ Lovenox Disposition discharge to [facility] today Total Time Total Time Spent Total Time Spent (In Minutes): 35 minutes Total Time Includes: Examination of the Patient, Discharge Planning, Medication Reconciliation, Communication With Other Providers and Other Discharge Plan Discharge Items Patient Disposition: Transfer Inpatient Rehab Fac Reason For Visit: FALL,AMBULATORY DYSFUNCTION Discharge Diagnosis: (1) Fall: (2) Ambulatory dysfunction: (3) Elevated CK: (4) Hypertension: (5) DM type 2 (diabetes mellitus, type 2) (6) Postsurgical hypothyroidism: (7) Sick sinus syndrome: (8) Pacemaker: (9) GERD (gastroesophageal reflux disease): (10) Major depression: (11) Left Otitis externa Condition on Discharge: Good Activity: Resume your previous activity Non-emergency contact: Primary Care Provider Call non-emergency contact if: you have any medication questions Follow-up/Referrals: Carmelo Cole MD [Primary Care Provider] - Diet: Carb Consistent or DM2 Addtl Attending Provider Instructions: Follow up with your primary care provider once discharge form rehab Continue physical and occupational therapy Fall precaution Follow up a health diabetes diet and limited concentrated sweet intake Check Hba1c between 3 to 6 months Complete the course of Augmentin Pending Studies at Discharge: No Stand-Alone Forms: My [facility] Skilled Items Patient informed of condition?: Yes DNR: No Discharge Level of Care: Acute rehab Communicable Disease: No Discharge Prognosis: Stable Lines: None Urinary Catheter: No Medications and DC Order Prescriptions: New Cipro HC 0.2-1 % Drops,Suspension 3 drp OTL BID 4 Days Qty: 10 RF: 0 acetaminophen [Mapap (acetaminophen)] 325 mg Tablet 650 mg PO Q6H PRN (Reason: pain) Qty: 30 RF: 0 amoxicillin-pot clavulanate 875-125 mg tablet 1 tab PO BID 3 Days Qty: 6 RF: 0 Continued atorvastatin 80 mg tablet 80 mg PO HS RF: 0 trazodone 50 mg tablet 100 mg PO HS RF: 0 sertraline 100 mg tablet 150 mg PO QAM RF: 0 metformin 1,000 mg tablet 1,000 mg PO BID RF: 0 lisinopril 10 mg tablet 10 mg PO QAM RF: 0 omeprazole 20 mg capsule,delayed release(DR/EC) 20 mg PO DAILYBB RF: 0 Januvia 100 mg tablet 100 mg PO QAM RF: 0 Basaglar KwikPen U-100 Insulin 100 unit/mL (3 mL) insulin pen 24 unit subcut QAM RF: 0 aspirin 81 mg Tablet,Delayed Release (Dr/Ec) 81 mg PO QAM Qty: 0 RF: 0 levothyroxine 125 mcg tablet 125 mcg PO QAM RF: 0 loratadine 10 mg Tablet 10 mg PO DAILY PRN (Reason: Allergy Symptoms) RF: 0 Discharge Orders: Discharge Order (Routine); Ordered 07/14/19 Ordered By: Ursula Sanches Admission Data Admit Date/Time: 07/12/19 13:59 Attending Provider: Ursula Sanches Admit Provider: Tylor Briscoe Primary Care Provider: Carmelo Cole Other Providers: Tylor Briscoe ; [facility] ; [facility] Other Interventions: Discharge Summary Assessment (RN) Last Done: 07/14/19 13:10 DC Date/Time DO NOT enter until pt leaves facility: 07/14/19 15:57
== END 2019-07-14 15:57 | DRG 556 ==
LOC: ED 12:02 → 4W 12:02 → SUATTDRO 17:30 → 4W 18:16

== ENCOUNTER 2019-09-06 10:48 | Inpatient (IN) ==
[2019-09-06] MEDS ORDERED: SODIUM CHLORIDE 0.9% 1000ML 1,000 ML IV ONE (11:41)
--- NOTE | 2019-09-06 11:47 | Emergency Department Note ---
History of Present Illness General Chief complaint: Fever Stated complaint: fall/ eval Time Seen by Provider: 09/06/19 11:34 History of Present Illness Provider complaint: Fall Onset (ago): day(s) 1 Location: head Maximum Pain Intensity: 10 73-year-old female with a history of diabetes presents emergency department status post fall. Patient states she was urinating last night when she fell off the toilet around 10 PM. She states she lied on the ground and was unable to get up until someone came into her room and helped her up at 11 AM. She reports a headache at this time. No chest pain, difficulty breathing, chills, nausea, vomiting, diarrhea, melena, or hematochezia. Home Medications Home Medications Medication Instructions Recorded Confirmed Type Basaglar KwikPen U-100 Insulin 24 unit SUBCUT QAM 12/16/18 09/06/19 History Januvia 100 mg PO QAM 12/16/18 09/06/19 History atorvastatin 80 mg PO HS 12/16/18 09/06/19 History lisinopril 10 mg PO QAM 12/16/18 09/06/19 History metformin 1,000 mg PO BID 12/16/18 09/06/19 History omeprazole 20 mg PO DAILYBB 12/16/18 09/06/19 History sertraline 150 mg PO QAM 12/16/18 09/06/19 History aspirin 81 mg PO QAM #0 tab 12/18/18 09/06/19 Rx levothyroxine 125 mcg PO QAM 05/01/19 09/06/19 History loratadine 10 mg PO DAILY PRN 07/11/19 09/06/19 History acetaminophen [Mapap 650 mg PO Q6H PRN #30 tab 07/14/19 09/06/19 Rx (acetaminophen)] trazodone 100 mg PO HS 09/06/19 09/06/19 History Allergies Allergy/AdvReac Type Severity Reaction Status Date / Time No Known Allergies Allergy Unknown Verified 09/06/19 11:14 Past Med/Surg History Medical History DM type 2 (diabetes mellitus, type 2) GERD (gastroesophageal reflux disease) Hypertension Major depression (Chronic) Pacemaker Patent foramen ovale (Chronic Unknown) Postsurgical hypothyroidism Sick sinus syndrome Surgical History H/O total shoulder replacement (Chronic) "right shoulder" H/O: hysterectomy (Resolved) History of appendectomy (Resolved) S/P thyroidectomy (Chronic) S/p total knee replacement, bilateral (Chronic) Family History Mother Diabetes Father Heart disease Social History Preferred Language: [place] Communication Ability: Effective Visual Impairment: No Limitations Hearing Ability: Normal Experimental Technician Required: No Beliefs That Will Affect Care: None Current Living Situation: Alone Current Living Situation Comment: own apt in Sr living facility-home checks from [facility] Other Information That Helps Us Care for You: No Feels Safe at Home: Yes Smoking Status: Never smoker Hx Alcohol Use: Yes Alcohol type: beer Hx Substance Use: No Review of Systems A total of 10 systems reviewed and were otherwise negative Physical Exam Vital Signs Vital Signs - 24 hr 09/06/19 11:00 09/06/19 11:08 09/06/19 11:09 Temperature 39 C H Temperature Source Oral Pulse Rate 114 H 85 104 H Pulse Rate from SpO2 Sensor Pulse Rhythm Regular Pulse Strength Normal Respiratory Rate 13 22 15 Respiratory Effort / Characteristics Non-Labored Spontaneous SOB on Exertion Respiratory Depth Normal Respiratory Pattern Regular Blood Pressure 168/86 H 168/66 H Blood Pressure Mean 104 100 Blood Pressure Position Lying Pulse Oximetry 95 Oxygen Delivery Method Room Air Sepsis Recent Fever Within 48 Hours Yes Sepsis New/Unexplained Change in Mental Status No Sepsis Action Taken by Nursing No Action Required 09/06/19 11:15 09/06/19 11:16 09/06/19 11:30 Temperature Temperature Source Pulse Rate 76 73 66 Pulse Rate from SpO2 Sensor 76 74 66 Pulse Rhythm Pulse Strength Respiratory Rate 14 13 15 Respiratory Effort / Characteristics Respiratory Depth Respiratory Pattern Blood Pressure 163/67 H Blood Pressure Mean 103 Blood Pressure Position Pulse Oximetry 97 98 98 Oxygen Delivery Method Sepsis Recent Fever Within 48 Hours Sepsis New/Unexplained Change in Mental Status Sepsis Action Taken by Nursing 09/06/19 11:31 09/06/19 11:41 09/06/19 11:45 Temperature Temperature Source Pulse Rate 65 Pulse Rate from SpO2 Sensor 66 68 Pulse Rhythm Regular Pulse Strength Respiratory Rate 14 Respiratory Effort / Characteristics Respiratory Depth Respiratory Pattern Blood Pressure 142/52 H Blood Pressure Mean 89 Blood Pressure Position Pulse Oximetry 99 98 Oxygen Delivery Method Room Air Sepsis Recent Fever Within 48 Hours Sepsis New/Unexplained Change in Mental Status Sepsis Action Taken by Nursing 09/06/19 12:00 09/06/19 12:15 09/06/19 12:47 Temperature Temperature Source Pulse Rate Pulse Rate from SpO2 Sensor 68 68 Pulse Rhythm Pulse Strength Respiratory Rate Respiratory Effort / Characteristics Respiratory Depth Respiratory Pattern Blood Pressure 151/97 H Blood Pressure Mean 119 Blood Pressure Position Pulse Oximetry 97 97 Oxygen Delivery Method Sepsis Recent Fever Within 48 Hours Sepsis New/Unexplained Change in Mental Status Sepsis Action Taken by Nursing 09/06/19 12:48 09/06/19 13:00 09/06/19 13:15 Temperature Temperature Source Pulse Rate 104 H 120 H 78 Pulse Rate from SpO2 Sensor 93 H 120 H 78 Pulse Rhythm Pulse Strength Respiratory Rate 21 21 22 Respiratory Effort / Characteristics Respiratory Depth Respiratory Pattern Blood Pressure 130/70 139/81 Blood Pressure Mean 81 96 Blood Pressure Position Pulse Oximetry 97 100 94 Oxygen Delivery Method Sepsis Recent Fever Within 48 Hours Sepsis New/Unexplained Change in Mental Status Sepsis Action Taken by Nursing 09/06/19 13:30 09/06/19 13:45 09/06/19 14:00 Temperature 37.3 C Temperature Source Pulse Rate 72 66 69 Pulse Rate from SpO2 Sensor 72 67 70 Pulse Rhythm Pulse Strength Respiratory Rate 16 25 H 18 Respiratory Effort / Characteristics Respiratory Depth Respiratory Pattern Blood Pressure 125/56 L 132/54 L 136/50 L Blood Pressure Mean 79 82 65 Blood Pressure Position Pulse Oximetry 97 95 96 Oxygen Delivery Method Sepsis Recent Fever Within 48 Hours Sepsis New/Unexplained Change in Mental Status Sepsis Action Taken by Nursing Physical Exam GENERAL: She is oriented to person, place, and time. She appears well-developed and well-nourished. She does not appear distressed. HENT: Exam performed. -Head: Normocephalic and abrasion over the left side of her face. -Right Ear: External ear normal. No mastoid tenderness. -Left Ear: External ear normal. No mastoid tenderness. -Mouth/Throat: The oropharynx is clear and moist. No trismus in the jaw. No dental abscesses or uvula swelling. No oropharyngeal exudate or tonsillar abscesses. EYES: Conjunctivae and EOM are normal. Pupils are equal, round, and reactive to light. Right eye exhibits no discharge. Left eye exhibits no discharge. No scleral icterus. NECK: Pain on palpation of the C-spine. CV: Normal rate, regular rhythm, normal heart sounds and intact distal pulses. There is no peripheral edema. Palpable radial pulses bue. PULM/CHEST: Effort normal and breath sounds normal. No respiratory distress. No stridor. She has no wheezes. She has no rales. -Chest Wall: She exhibits no tenderness. ABD: The abdomen is soft. Bowel sounds are normal. She has no distension. No mass is present. There is no tenderness. There is no rebound, no guarding, no Gamboa's sign and no tenderness at McBurney's point. Rovsig negative MUSC/SKEL: Pain on palpation of her hips bilaterally. LYMPH: No cervical adenopathy. NEURO: Motor and sensation grossly intact. GCS eye subscore is 4. GCS verbal subscore is 5. GCS motor subscore is 6. SKIN: Skin is warm and dry. She is not diaphoretic. PSYCH: She has a normal mood and affect. Behavior is normal. Judgment and thought content normal. Course Course 1138: The patient was evaluated in room A2. A complete history and physical exam was performed. Patient was placed in c-collar given her fall and pain on palpation of the C-spine. Labs, imaging, and fluid bolus were ordered. 1350: Vital signs stable. Labs show an APTT of greater than 139. Magnesium of 1.4. Imaging shows no traumatic injury. C-spine cleared. Influenza positive. Patient was given Tamiflu in the emergency department. Magnesium started to be replaced in the emergency department. Patient will be admitted to the [facility] Hospitalist team who has been notified, Dr. Stanton. Administered Medications Discontinued Medications Sodium Chloride (Nss 1000ml) 1,000 mls @ 999 mls/hr IV .Q1H1M ONE Stop: 09/06/19 12:41 Last Infusion: 09/06/19 14:25 Dose: 0 mls/hr Documented by: [id number] Admin: 09/06/19 12:45 Dose: 999 mls/hr Documented by: [id number] Acetaminophen (Ofirmev) 1,000 mg in 100 mls @ 400 mls/hr IV NOW STA Stop: 09/06/19 12:04 Last Infusion: 09/06/19 13:21 Dose: 0 mls/hr Documented by: [id number] Admin: 09/06/19 12:45 Dose: 400 mls/hr Documented by: [id number] Magnesium Sulfate/Dextrose (Magnesium Sulfate / D5w) 1 gm in 100 mls @ 100 mls/hr IV Q1H STACY Stop: 09/06/19 15:59 Last Admin: 09/06/19 15:18 Dose: 100 mls/hr Documented by: [id number] Infusion: 09/06/19 15:18 Dose: 0 mls/hr Documented by: [id number] Admin: 09/06/19 14:23 Dose: 100 mls/hr Documented by: [id number] Oseltamivir Phosphate (Tamiflu) 75 mg PO NOW STA; Protocol Stop: 09/06/19 12:55 Last Admin: 09/06/19 13:21 Dose: 75 mg Documented by: [id number] Medical Decision Making Laboratory Data Result diagrams: 09/06/19 13:09 09/06/19 13:09 Lab Results 09/06/19 09/06/19 09/06/19 Range/Units 11:02 11:50 13:09 WBC 5.22 (4.8-10.8) K/uL RBC 4.10 L (4.2-5.4) M/uL Hgb 10.1 L (12.0-16.0) g/dL Hct 32.2 L (37-47) % MCV 78.5 L (80-100) fL MCH 24.6 L (25-34) pg MCHC 31.4 L (32-36) g/dL RDW Std Deviation 47.5 H (36.4-46.3) fL RDW Coeff of Sunitha 16.5 H (11.5-14.5) % Plt Count 162 (130-400) K/uL MPV 9.3 (7.4-10.4) fL Immature Gran % (Auto) 0.2 % Neut % (Auto) 72.0 % Lymph % (Auto) 19.0 % [place] % (Auto) 6.1 % Eos % (Auto) 2.1 % Baso % (Auto) 0.6 % Immature Gran # (Auto) 0.01 (0.00-0.02) K/uL Neut # (Auto) 3.76 (1.4-6.5) K/uL Lymph # (Auto) 0.99 L (1.2-3.4) K/uL [place] # (Auto) 0.32 (0.11-0.59) K/uL Eos # (Auto) 0.11 (0-0.5) K/uL Baso # (Auto) 0.03 (0-0.2) K/uL PT (9.0-12.0) Seconds INR (0.9-1.1) APTT (21.0-31.0) Seconds PTT Ratio Sodium (136-145) mmol/L Potassium (3.5-5.1) mmol/L Chloride (98-107) mmol/L Carbon Dioxide (21-32) mmol/L Anion Gap (3-11) BUN (7-18) mg/dl Creatinine (0.6-1.2) mg/dl Est Cr Clr Drug Dosing ml/min Est GFR ( Amer) Est GFR (Non-Af Amer) BUN/Creatinine Ratio (10-20) Glucose (70-99) mg/dl Lactate (0.4-2.0) mmol/L Calcium (8.5-10.1) mg/dl Magnesium (1.8-2.4) mg/dl Total Bilirubin (0.2-1) mg/dl AST (15-37) U/L ALT (12-78) U/L Alkaline Phosphatase (45-117) U/L Total Creatine Kinase (26-192) U/L Troponin I (0-0.045) ng/ml Total Protein (6.4-8.2) gm/dl Albumin (3.4-5.0) gm/dl Globulin (2.5-4.0) gm/dl Albumin/Globulin Ratio (0.9-2) Procalcitonin (0-0.5) ng/ml Urine Color Yellow Urine Appearance Clear (Clear) Urine pH 8.5 H (4.5-7.5) Ur Specific [place]idan 1.017 (1.000-1.030) Urine Protein Negative (Negative) Urine Glucose (UA) Negative (Negative) Urine Ketones Negative (Negative) Urine Blood Negative (Negative) Urine Nitrite Negative (Negative) Urine Bilirubin Negative (Negative) Urine Urobilinogen Negative (Negative) Ur Leukocyte Esterase Negative (Negative) Influenza Type A (PCR) Pos for Influ A A* (Neg) Influenza Type B (PCR) Neg for Influ B (Neg) 09/06/19 09/06/19 09/06/19 Range/Units 13:09 13:09 13:09 WBC (4.8-10.8) K/uL RBC (4.2-5.4) M/uL Hgb (12.0-16.0) g/dL Hct (37-47) % MCV (80-100) fL MCH (25-34) pg MCHC (32-36) g/dL RDW Std Deviation (36.4-46.3) fL RDW Coeff of Sunitha (11.5-14.5) % Plt Count (130-400) K/uL MPV (7.4-10.4) fL Immature Gran % (Auto) % Neut % (Auto) % Lymph % (Auto) % [place] % (Auto) % Eos % (Auto) % Baso % (Auto) % Immature Gran # (Auto) (0.00-0.02) K/uL Neut # (Auto) (1.4-6.5) K/uL Lymph # (Auto) (1.2-3.4) K/uL [place] # (Auto) (0.11-0.59) K/uL Eos # (Auto) (0-0.5) K/uL Baso # (Auto) (0-0.2) K/uL PT 11.3 (9.0-12.0) Seconds INR 1.1 (0.9-1.1) APTT > 139.0 H* (21.0-31.0) Seconds PTT Ratio > 5.0 Sodium 136 (136-145) mmol/L Potassium 3.9 (3.5-5.1) mmol/L Chloride 103 (98-107) mmol/L Carbon Dioxide 28 (21-32) mmol/L Anion Gap 5.0 (3-11) BUN 8 (7-18) mg/dl Creatinine 0.97 (0.6-1.2) mg/dl Est Cr Clr Drug Dosing 57.8 ml/min Est GFR ( Amer) 67.2 Est GFR (Non-Af Amer) 57.9 BUN/Creatinine Ratio 8.4 L (10-20) Glucose 138 H (70-99) mg/dl Lactate 1.6 (0.4-2.0) mmol/L Calcium 8.4 L (8.5-10.1) mg/dl Magnesium 1.4 L (1.8-2.4) mg/dl Total Bilirubin 0.3 (0.2-1) mg/dl AST 17 (15-37) U/L ALT 17 (12-78) U/L Alkaline Phosphatase 81 (45-117) U/L Total Creatine Kinase 133 (26-192) U/L Troponin I < 0.015 (0-0.045) ng/ml Total Protein 6.9 (6.4-8.2) gm/dl Albumin 3.2 L (3.4-5.0) gm/dl Globulin 3.7 (2.5-4.0) gm/dl Albumin/Globulin Ratio 0.9 (0.9-2) Procalcitonin (0-0.5) ng/ml Urine Color Urine Appearance (Clear) Urine pH (4.5-7.5) Ur Specific [place]idan (1.000-1.030) Urine Protein (Negative) Urine Glucose (UA) (Negative) Urine Ketones (Negative) Urine Blood (Negative) Urine Nitrite (Negative) Urine Bilirubin (Negative) Urine Urobilinogen (Negative) Ur Leukocyte Esterase (Negative) Influenza Type A (PCR) (Neg) Influenza Type B (PCR) (Neg) 09/06/19 Range/Units 13:09 WBC (4.8-10.8) K/uL RBC (4.2-5.4) M/uL Hgb (12.0-16.0) g/dL Hct (37-47) % MCV (80-100) fL MCH (25-34) pg MCHC (32-36) g/dL RDW Std Deviation (36.4-46.3) fL RDW Coeff of Sunitha (11.5-14.5) % Plt Count (130-400) K/uL MPV (7.4-10.4) fL Immature Gran % (Auto) % Neut % (Auto) % Lymph % (Auto) % [place] % (Auto) % Eos % (Auto) % Baso % (Auto) % Immature Gran # (Auto) (0.00-0.02) K/uL Neut # (Auto) (1.4-6.5) K/uL Lymph # (Auto) (1.2-3.4) K/uL [place] # (Auto) (0.11-0.59) K/uL Eos # (Auto) (0-0.5) K/uL Baso # (Auto) (0-0.2) K/uL PT (9.0-12.0) Seconds INR (0.9-1.1) APTT (21.0-31.0) Seconds PTT Ratio Sodium (136-145) mmol/L Potassium (3.5-5.1) mmol/L Chloride (98-107) mmol/L Carbon Dioxide (21-32) mmol/L Anion Gap (3-11) BUN (7-18) mg/dl Creatinine (0.6-1.2) mg/dl Est Cr Clr Drug Dosing ml/min Est GFR ( Amer) Est GFR (Non-Af Amer) BUN/Creatinine Ratio (10-20) Glucose (70-99) mg/dl Lactate (0.4-2.0) mmol/L Calcium (8.5-10.1) mg/dl Magnesium (1.8-2.4) mg/dl Total Bilirubin (0.2-1) mg/dl AST (15-37) U/L ALT (12-78) U/L Alkaline Phosphatase (45-117) U/L Total Creatine Kinase (26-192) U/L Troponin I (0-0.045) ng/ml Total Protein (6.4-8.2) gm/dl Albumin (3.4-5.0) gm/dl Globulin (2.5-4.0) gm/dl Albumin/Globulin Ratio (0.9-2) Procalcitonin 0.05 (0-0.5) ng/ml Urine Color Urine Appearance (Clear) Urine pH (4.5-7.5) Ur Specific [place] (1.000-1.030) Urine Protein (Negative) Urine Glucose (UA) (Negative) Urine Ketones (Negative) Urine Blood (Negative) Urine Nitrite (Negative) Urine Bilirubin (Negative) Urine Urobilinogen (Negative) Ur Leukocyte Esterase (Negative) Influenza Type A (PCR) (Neg) Influenza Type B (PCR) (Neg) Imaging Data Radiologist's Impression: XR pelvis 1-2V routine CLINICAL HISTORY: Pelvic pain status post trauma COMPARISON: 05/01/2019 DISCUSSION: No acute fractures or dislocations are visualized. The bones are mildly the pubic. There is no SI joint diastases. There is no symphysis stephen stases. IMPRESSION: No fractures or dislocations identified. ACT 112: Negative or not required by law. Electronically signed by: Wilmer Green M.D. 09/06/2019 1:37 PM Dictated: 09/06/19 1336 Transcribed: 09/06/[address] head/brain wo con CLINICAL HISTORY: Head pain status post trauma COMPARISON STUDY: July 11, 2019 TECHNIQUE: Axial CT of the brain is performed from the vertex to the skull base. IV contrast was not administered for this examination. A dose lowering technique was utilized adhering to the principles of ALARA. CT DOSE: 638.56 mGycm FINDINGS: No intra or extra-axial mass lesions are visualized. There is no CT evidence of acute cortical infarction. There is no evidence of midline shift. There is no acute hemorrhage. No calvarial fractures are visualized. There are patchy white matter hypodensities likely on a small vessel basis. There is no evidence of pathologic ventricular dilatation. There is a left maxillary sinus air-fluid level. There is a left orbital floor deformity, possibly chronic. There is a right temporal scalp lesion, possibly related to avascular anomaly. IMPRESSION: No acute intracranial findings ACT 112: Negative or not required by law. Electronically signed by: Wilmer Green M.D. 09/06/2019 12:54 PM Dictated: 09/06/19 1239 Transcribed: 09/06/[address] OF THE CERVICAL SPINE CLINICAL HISTORY: Neck pain status post trauma COMPARISON STUDY: July 13, 2019 CT DOSE: 440.88 mGycm TECHNIQUE: CT scan of the cervical spine was performed from the skull base to the thoracic inlet. Images are reviewed in the axial, sagittal, and coronal planes. IV contrast was not administered for this examination. A dose lowering technique was utilized adhering to the principles of ALARA. FINDINGS: The visualized portions of the lung apices reveal no evidence of pneumothorax. The prevertebral soft tissues are normal. No fractures or subluxations are visualized. There are multilevel degenerative changes. There is prominent calcification the posterior longitudinal ligament at the T1-2 level with secondary spinal canal narrowing. IMPRESSION: No evidence of acute fracture or traumatic subluxation. ACT 112: Negative or not required by law. Electronically signed by: Wilmer Green M.D. 09/06/2019 12:56 PM Dictated: 09/06/19 1254 Transcribed: 09/06/19 1254 XR chest 1V portable CLINICAL HISTORY: SEPSIS COMPARISON STUDY: 05/01/2019 FINDINGS: The cardiac and mediastinal contours remain stable. There is a left subclavian dual-chamber central venous pacemaker. There is no failure. There is no focal pulmonary consolidation. There are no pleural effusions. There are postsurgical changes of a right shoulder arthroplasty.[ IMPRESSION: No active disease in the chest. ACT 112: Negative or not required by law. Electronically signed by: Wilmer Green M.D. 09/06/2019 1:36 PM Dictated: 09/06/19 1336 Transcribed: 09/06/19 1336 ECG Data Rate (beats per minute): 73 ECG Intervals/blocks: + Normal QRS, + Normal [place] and + Normal QT-c ECG ST segments: + Normal ST segments Additional Comments: Paced rhythm with rate of 73. [place] QRS and QTc intervals are within normal limits. No ST elevation or ST depression. [facility] Narrative 1138: The patient was evaluated in room A2. A complete history and physical exam was performed. Patient was placed in c-collar given her fall and pain on palpation of the C-spine. Labs, imaging, and fluid bolus were ordered. 1350: Vital signs stable. Labs show an APTT of greater than 139. Magnesium of 1.4. Imaging shows no traumatic injury. C-spine cleared. Influenza positive. Patient was given Tamiflu in the emergency department. Magnesium started to be replaced in the emergency department. Patient will be admitted to the [facility] Hospitalist team who has been notified, Dr. Stanton. Impression & Plan Hypomagnesemia, Fall, Influenza Discharge Plan Visit Data *Final* Discharge Date/Time: 09/06/19 16:30 Chief Complaint: Fever Stated Complaint: fall/ eval ED Provider: Ede Stein Discharge Problem: Hypomagnesemia, Fall, Influenza Patient Disposition: Admitted As Inpatient Discharge Instructions Interventions: ED Discharge Assessment Last Done: 09/06/19 16:30 Discharge Problem: Fall Qualifiers: Encounter type: initial encounter Qualified Code(s): W19.XXXA - Unspecified fall, initial encounter
[2019-09-06] MEDS ORDERED: ACETAMINOPHEN 1,000 MG/100 ML VIAL IV STA (11:50)
[2019-09-06 12:06] LABS: Appearance Urine Clear (Clear); Bilirubin Urine Negative (Negative); Blood Urine Negative (Negative); Color Urine Yellow; Glucose Urine UA Negative (Negative); Ketones Urine Negative (Negative); Leukocyte Esterase Urine Negative (Negative); Nitrite Urine Negative (Negative); Protein Urine Negative (Negative); Specific Gravity Urine 1.017 (1.000-1.030); Urobilinogen Urine Negative (Negative); pH Urine 8.5 (4.5-7.5)
[2019-09-06 12:41] LABS: Influenza B virus by PCR Neg for Influ B (Neg)
[2019-09-06] MEDS ORDERED: OSELTAMIVIR PHOSPHATE 75 MG CAP PO STA (12:54)
--- NOTE | 2019-09-06 12:55 | CT Scan Report ---
CT head/brain wo con CLINICAL HISTORY: Head pain status post trauma COMPARISON STUDY: July 11, 2019 TECHNIQUE: Axial CT of the brain is performed from the vertex to the skull base. IV contrast was not administered for this examination. A dose lowering technique was utilized adhering to the principles of ALARA. CT DOSE: 638.56 mGycm FINDINGS: No intra or extra-axial mass lesions are visualized. There is no CT evidence of acute cortical infarc tion. There is no evidence of midline shift. There is no acute hemorrhage. No calvarial fractures ar e visualized. There are patchy white matter hypodensities likely on a small vessel basis. There is no evidence of pathologic ventricular dilatation. There is a left maxillary sinus air-fluid level. There is a left orbital floor deformity, possibly ch ronic. There is a right temporal scalp lesion, possibly related to avascular anomaly. IMPRESSION: No acute intracranial findings ACT 112: Negative or not required by law. Electronically signed by: Wilmer Green M.D. 09/06/2019 12:54 PM
--- NOTE | 2019-09-06 12:57 | CT Scan Report ---
CT OF THE CERVICAL SPINE CLINICAL HISTORY: Neck pain status post trauma COMPARISON STUDY: July 13, 2019 CT DOSE: 440.88 mGycm TECHNIQUE: CT scan of the cervical spine was performed from the skull base to the thoracic inlet. Lorie ges are reviewed in the axial, sagittal, and coronal planes. IV contrast was not administered for thi s examination. A dose lowering technique was utilized adhering to the principles of ALARA. FINDINGS: The visualized portions of the lung apices reveal no evidence of pneumothorax. The prevertebral soft tissues are normal. No fractures or subluxations are visualized. There are multilevel degenerative changes. There is prominent calcification the posterior longitudina l ligament at the T1-2 level with secondary spinal canal narrowing. IMPRESSION: No evidence of acute fracture or traumatic subluxation. ACT 112: Negative or not required by law. Electronically signed by: Wilmer Green M.D. 09/06/2019 12:56 PM
[2019-09-06 13:19] LABS: Basophils # (auto) 0.03 K/uL (0-0.2); Basophils % (auto) 0.6 %; Eosinophils # (auto) 0.11 K/uL (0-0.5); Eosinophils % (auto) 2.1 %; Hematocrit (blood only) 32.2 % (37-47); Hemoglobin 10.1 g/dL (12.0-16.0); Immature Granulocytes # (auto) 0.01 K/uL (0.00-0.02); Immature Granulocytes % (auto) 0.2 %; Lymphocytes # (auto) 0.99 K/uL (1.2-3.4); Mean Corpuscular Hemoglobin 24.6 pg (25-34); Mean Corpuscular Hgb Conc 31.4 g/dL (32-36); Mean Corpuscular Volume 78.5 fL (80-100); Mean Platelet Volume 9.3 fL (7.4-10.4); Monocytes # (auto) 0.32 K/uL (0.11-0.59); Monocytes % (auto) 6.1 %; Neutrophils # (auto) 3.76 K/uL (1.4-6.5); Platelet Count 162 K/uL (130-400); RDW Coefficient of Variation 16.5 % (11.5-14.5); RDW Standard Deviation 47.5 fL (36.4-46.3); White Blood Count 5.22 K/uL (4.8-10.8)
[2019-09-06 13:32] LABS: INR 1.1 (0.9-1.1); Prothrombin Time 11.3 Seconds (9.0-12.0)
[2019-09-06 13:35] LABS: Partial Thromboplastin Ratio > 5.0
[2019-09-06 13:36] LABS: Partial Thromboplastin Time > 139.0 Seconds (21.0-31.0)
[2019-09-06 13:37] LABS: Alanine Aminotransferase 17 U/L (12-78); Albumin Level 3.2 gm/dl (3.4-5.0); Aspartate Aminotransferase 17 U/L (15-37); BUN Creatinine Ratio 8.4 (10-20); Blood Urea Nitrogen 8 mg/dl (7-18); Calcium 8.4 mg/dl (8.5-10.1); Carbon Dioxide 28 mmol/L (21-32); Chloride 103 mmol/L (98-107); Creatinine Clr Calc Pharmacy 57.8 ml/min; Est GFR (African American) 67.2; Est GFR (Non-African American) 57.9; Glucose 138 mg/dl (70-99); Magnesium 1.4 mg/dl (1.8-2.4); Potassium 3.9 mmol/L (3.5-5.1); Sodium 136 mmol/L (136-145)
--- NOTE | 2019-09-06 13:37 | XRay Report ---
XR chest 1V portable CLINICAL HISTORY: SEPSIS COMPARISON STUDY: 05/01/2019 FINDINGS: The cardiac and mediastinal contours remain stable. There is a left subclavian dual-chamber central venous pacemaker. There is no failure. There is no focal pulmonary consolidation. There are no pleural effusions. There are postsurgical changes of a right shoulder arthroplasty.[ IMPRESSION: No active disease in the chest. ACT 112: Negative or not required by law. Electronically signed by: Wilmer Green M.D. 09/06/2019 1:36 PM
--- NOTE | 2019-09-06 13:39 | XRay Report ---
XR pelvis 1-2V routine CLINICAL HISTORY: Pelvic pain status post trauma COMPARISON: 05/01/2019 DISCUSSION: No acute fractures or dislocations are visualized. The bones are mildly the pubic. There is no SI joint diastases. There is no symphysis diastases. IMPRESSION: No fractures or dislocations identified. ACT 112: Negative or not required by law. Electronically signed by: Wilmer Green M.D. 09/06/2019 1:37 PM
[2019-09-06 13:42] LABS: Albumin Globulin Ratio 0.9 (0.9-2); Alkaline Phosphatase 81 U/L (45-117); Bilirubin,Total 0.3 mg/dl (0.2-1); Creatine Kinase 133 U/L (26-192); Globulin 3.7 gm/dl (2.5-4.0); Total Protein 6.9 gm/dl (6.4-8.2); Troponin I < 0.015 ng/ml (0-0.045)
[2019-09-06] MEDS: MAGNESIUM SULFATE / D5W 1 GM/100 ML BAG IV SCH ×2 (14:23→15:18)
--- NOTE | 2019-09-06 14:39 | History & Physical Report ---
Date of Service September 06, 2019 Assessment & Plan (1) Influenza: Cough for several days with generalized weakness and fall. Nasopharyngeal swab positive for influenza A using PCR. Treat with oseltamivir and symptomatic management. (2) Fall: Possibly due to orthostasis or generalized weakness. Monitor for arrhythmias. PT/OT evaluations when better. (3) Hypertension: Continue lisinopril. 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 Managed with metformin, sitagliptin, Basaglar at home. Random blood sugar in ED 138. Check hemoglobin A1c. Hold oral agents during hospital stay. Lantus/NovoLog per protocol. (5) GERD (gastroesophageal reflux disease): Continue PPI. (6) CKD (chronic kidney disease), stage III: Serum creatinine 0.97. Follow. (7) Hypomagnesemia: Serum magnesium 1.4. Replace, follow. (8) Do not resuscitate status: Advanced directives and code status discussed with patient. She does not have a living will. She does not wish to have resuscitation attempted in the event of a cardiopulmonary arrest. Code status, therefore, is DNR. (9) DVT prophylaxis: Subcutaneous enoxaparin. Ambulate. (10) Discharge planning issues: Discharge disposition to be determined after PT/OT evaluations. Family Medicine follow-up with Dr. Cole. History of Present Illness Chief Complaint: cough, weakness Primary Care Provider: Carmelo Cole MD 73-year-old female followed by Dr. Cole. History of hypertension, asthma, diabetes, and other problems noted below. Became ill a few days ago with cough and rhinorrhea. No fever. No pharyngitis. Mild frontal headache. Last evening she fell in the bathroom around 2200. Patient states that she fell after bending over and standing up. No apparent loss of consciousness, seizure activity, focal neurologic symptoms, chest pain, palpitations, etc. Injured her neck and back when she fell. She called out for neighbors in her apartment, but nobody responded. Remained on the floor all night long. Neighbors responded to her calls in the morning and summoned EMS for assistance. She was brought to the ED for evaluation. Allergies Allergy/AdvReac Type Severity Reaction Status Date / Time No Known Allergies Allergy Unknown Verified 09/06/19 11:14 Home Medications Home Medications Medication Instructions Recorded Confirmed Type Joon Moseley U-100 Insulin 24 unit SUBCUT QAM 12/16/18 09/06/19 History Januvia 100 mg PO QAM 12/16/18 09/06/19 History atorvastatin 80 mg PO HS 12/16/18 09/06/19 History lisinopril 10 mg PO QAM 12/16/18 09/06/19 History metformin 1,000 mg PO BID 12/16/18 09/06/19 History omeprazole 20 mg PO DAILYBB 12/16/18 09/06/19 History sertraline 150 mg PO QAM 12/16/18 09/06/19 History aspirin 81 mg PO QAM #0 tab 12/18/18 09/06/19 Rx levothyroxine 125 mcg PO QAM 05/01/19 09/06/19 History loratadine 10 mg PO DAILY PRN 07/11/19 09/06/19 History acetaminophen [Mapap 650 mg PO Q6H PRN #30 tab 07/14/19 09/06/19 Rx (acetaminophen)] trazodone 100 mg PO HS 09/06/19 09/06/19 History Past Med/Surg History Medical History (Updated 09/07/19 @ 04:04 by David Stanton MD) CKD (chronic kidney disease), stage III DM type 2 (diabetes mellitus, type 2) Do not resuscitate status Dyslipidemia GERD (gastroesophageal reflux disease) History of thyroid cancer Hypertension Major depression (Chronic) Pacemaker Patent foramen ovale (Chronic Unknown) Postsurgical hypothyroidism Sick sinus syndrome Surgical History (Updated 09/07/19 @ 03:57 by David Stanton MD) H/O total shoulder replacement (Inactive) "right shoulder" H/O: hysterectomy (Resolved) History of appendectomy (Resolved) S/P thyroidectomy (Inactive) S/p total knee replacement, bilateral (Inactive) Status post placement of cardiac pacemaker Family History Mother Diabetes Father Heart disease Social History Preferred Language: Burmese Communication Ability: Effective Visual Impairment: No Limitations Hearing Ability: Normal Accounts Receivable Processor Required: No Beliefs That Will Affect Care: None Current Living Situation: Alone Current Living Situation Comment: own apt in Sr living facility-home checks from [facility] Other Information That Helps Us Care for You: No Feels Safe at Home: Yes Smoking Status: Never smoker Hx Alcohol Use: Yes Alcohol type: beer Hx Substance Use: No Review of Systems Constitutional: + weakness; no fever and no weight loss Eyes: no diplopia and no worsening vision Ear, Nose, Mouth, Throat: as per Subjective / HPI Respiratory: as per Subjective / HPI Cardiovascular: no chest pain, no palpitations and no edema Gastrointestinal: no nausea, no vomiting, no constipation, no diarrhea/loose stools, no blood in stools and no melena Genitourinary: no dysuria and no hematuria Musculoskeletal: as per Subjective / HPI Integumentary: no rash and no new lesions Neurologic: no headache(s) Endocrine: no polydipsia and no polyuria blood sugars well-controlled at home Hematologic / Lymphatic: + easy bruising; no easy bleeding and no lymphadenopathy Physical Exam Constitutional: WD/WN, vitals as above no acute distress Eyes: PERRL, conjunctivae normal, anicteric sclerae ENMT: external ear and nose normal, oropharynx normal dentures Neck: trachea midline, no thyromegaly Respiratory: normal respiratory effort, lungs clear to auscultation Auscultation: + rhonchi Cardiovascular: Rate/Rhythm: regular rate Heart Sounds: + murmur (III/ sys murmur heard best at base and LSB); no gallop and no cardiac rub Vessels: no JVD Extremities: normal capillary refill; no calf tenderness and no edema Gastrointestinal (Abdomen): normal bowel sounds, soft, nontender, no hepatosplenomegaly Musculoskeletal: Head/Neck/Chest: neck supple Extremities: strength 5/5 throughout; no cyanosis and no clubbing Skin: no rashes, warm and dry Neurologic: PERRL, EOMI no facial palsy no dysarthria or aphasia patellar DTR's 2/2 bilat Psychiatric: Orientation: alert and oriented x 3 Affect: euthymic affect Lymphatic: no cervical lymphadenopathy Results & Data Vital Signs (Past 12 Hours) Vital Signs Temp Pulse Resp BP Pulse Ox 09/06/19 14:17 98 09/06/19 14:00 37.3 C 69 18 136/50 L 96 09/06/19 13:45 66 25 H 132/54 L 95 09/06/19 13:30 72 16 125/56 L 97 09/06/19 13:15 78 22 139/81 94 09/06/19 13:00 120 H 21 130/70 100 09/06/19 12:48 104 H 21 97 09/06/19 12:47 151/97 H 09/06/19 12:15 97 09/06/19 12:00 97 09/06/19 11:45 98 09/06/19 11:31 65 14 142/52 H 99 09/06/19 11:30 66 15 98 09/06/19 11:16 73 13 98 09/06/19 11:15 76 14 163/67 H 97 09/06/19 11:09 104 H 15 09/06/19 11:08 39 C H 85 22 168/66 H 95 09/06/19 11:00 114 H 13 168/86 H Laboratory Results Laboratory Results - last 24 hr 09/06/19 09/06/19 09/06/19 11:02 11:50 13:09 WBC 5.22 RBC 4.10 L Hgb 10.1 L Hct 32.2 L MCV 78.5 L MCH 24.6 L MCHC 31.4 L RDW Std Deviation 47.5 H RDW Coeff of Sunitha 16.5 H Plt Count 162 MPV 9.3 Immature Gran % (Auto) 0.2 Neut % (Auto) 72.0 Lymph % (Auto) 19.0 [place] % (Auto) 6.1 Eos % (Auto) 2.1 Baso % (Auto) 0.6 Immature Gran # (Auto) 0.01 Neut # (Auto) 3.76 Lymph # (Auto) 0.99 L [place] # (Auto) 0.32 Eos # (Auto) 0.11 Baso # (Auto) 0.03 PT INR APTT PTT Ratio Sodium Potassium Chloride Carbon Dioxide Anion Gap BUN Creatinine Est Cr Clr Drug Dosing Est GFR ( Amer) Est GFR (Non-Af Amer) BUN/Creatinine Ratio Glucose POC Glucose Lactate Calcium Magnesium Total Bilirubin AST ALT Alkaline Phosphatase Total Creatine Kinase Troponin I Total Protein Albumin Globulin Albumin/Globulin Ratio Procalcitonin Urine Color Yellow Urine Appearance Clear Urine pH 8.5 H Ur Specific [place] 1.017 Urine Protein Negative Urine Glucose (UA) Negative Urine Ketones Negative Urine Blood Negative Urine Nitrite Negative Urine Bilirubin Negative Urine Urobilinogen Negative Ur Leukocyte Esterase Negative Influenza Type A (PCR) Pos for Influ A A* Influenza Type B (PCR) Neg for Influ B 09/06/19 09/06/19 09/06/19 13:09 13:09 13:09 WBC RBC Hgb Hct MCV MCH MCHC RDW Std Deviation RDW Coeff of Sunitha Plt Count MPV Immature Gran % (Auto) Neut % (Auto) Lymph % (Auto) [place] % (Auto) Eos % (Auto) Baso % (Auto) Immature Gran # (Auto) Neut # (Auto) Lymph # (Auto) [place] # (Auto) Eos # (Auto) Baso # (Auto) PT 11.3 INR 1.1 APTT > 139.0 H* PTT Ratio > 5.0 Sodium 136 Potassium 3.9 Chloride 103 Carbon Dioxide 28 Anion Gap 5.0 BUN 8 Creatinine 0.97 Est Cr Clr Drug Dosing 57.8 Est GFR ( Amer) 67.2 Est GFR (Non-Af Amer) 57.9 BUN/Creatinine Ratio 8.4 L Glucose 138 H POC Glucose Lactate 1.6 Calcium 8.4 L Magnesium 1.4 L Total Bilirubin 0.3 AST 17 ALT 17 Alkaline Phosphatase 81 Total Creatine Kinase 133 Troponin I < 0.015 Total Protein 6.9 Albumin 3.2 L Globulin 3.7 Albumin/Globulin Ratio 0.9 Procalcitonin Urine Color Urine Appearance Urine pH Ur Specific [place] Urine Protein Urine Glucose (UA) Urine Ketones Urine Blood Urine Nitrite Urine Bilirubin Urine Urobilinogen Ur Leukocyte Esterase Influenza Type A (PCR) Influenza Type B (PCR) 09/06/19 09/06/19 09/06/19 13:09 16:58 18:13 WBC RBC Hgb Hct MCV MCH MCHC RDW Std Deviation RDW Coeff of Sunitha Plt Count MPV Immature Gran % (Auto) Neut % (Auto) Lymph % (Auto) [place] % (Auto) Eos % (Auto) Baso % (Auto) Immature Gran # (Auto) Neut # (Auto) Lymph # (Auto) [place] # (Auto) Eos # (Auto) Baso # (Auto) PT INR APTT 26.5 PTT Ratio 0.9 Sodium Potassium Chloride Carbon Dioxide Anion Gap BUN Creatinine Est Cr Clr Drug Dosing Est GFR ( Amer) Est GFR (Non-Af Amer) BUN/Creatinine Ratio Glucose POC Glucose 160 H Lactate Calcium Magnesium Total Bilirubin AST ALT Alkaline Phosphatase Total Creatine Kinase Troponin I Total Protein Albumin Globulin Albumin/Globulin Ratio Procalcitonin 0.05 Urine Color Urine Appearance Urine pH Ur Specific [place] Urine Protein Urine Glucose (UA) Urine Ketones Urine Blood Urine Nitrite Urine Bilirubin Urine Urobilinogen Ur Leukocyte Esterase Influenza Type A (PCR) Influenza Type B (PCR) 09/06/19 09/06/19 18:13 20:14 WBC RBC Hgb Hct MCV MCH MCHC RDW Std Deviation RDW Coeff of Sunitha Plt Count MPV Immature Gran % (Auto) Neut % (Auto) Lymph % (Auto) [place] % (Auto) Eos % (Auto) Baso % (Auto) Immature Gran # (Auto) Neut # (Auto) Lymph # (Auto) [place] # (Auto) Eos # (Auto) Baso # (Auto) PT INR APTT PTT Ratio Sodium Potassium Chloride Carbon Dioxide Anion Gap BUN Creatinine Est Cr Clr Drug Dosing Est GFR ( Amer) Est GFR (Non-Af Amer) BUN/Creatinine Ratio Glucose POC Glucose 153 H Lactate Calcium Magnesium 2.0 Total Bilirubin AST ALT Alkaline Phosphatase Total Creatine Kinase 135 Troponin I Total Protein Albumin Globulin Albumin/Globulin Ratio Procalcitonin Urine Color Urine Appearance Urine pH Ur Specific [place] Urine Protein Urine Glucose (UA) Urine Ketones Urine Blood Urine Nitrite Urine Bilirubin Urine Urobilinogen Ur Leukocyte Esterase Influenza Type A (PCR) Influenza Type B (PCR) Diagnostic Findings X-RAY CHEST PORTABLE FINDINGS: The cardiac and mediastinal contours remain stable. There is a left subclavian dual-chamber central venous pacemaker. There is no failure. There is no focal pulmonary consolidation. There are no pleural effusions. There are postsurgical changes of a right shoulder arthroplasty. IMPRESSION: No active disease in the chest. ACT 112: Negative or not required by law. Electronically signed by: Wilmer Green M.D. 09/06/2019 1:36 PM X-RAY PELVIS DISCUSSION: No acute fractures or dislocations are visualized. The bones are mildly the pubic. There is no SI joint diastases. There is no symphysis diastases. IMPRESSION: No fractures or dislocations identified. ACT 112: Negative or not required by law. Electronically signed by: Wilmer Green M.D. 09/06/2019 1:[address] HEAD FINDINGS: No intra or extra-axial mass lesions are visualized. There is no CT evidence of acute cortical infarction. There is no evidence of midline shift. There is no acute hemorrhage. No calvarial fractures are visualized. There are patchy white matter hypodensities likely on a small vessel basis. There is no evidence of pathologic ventricular dilatation. There is a left maxillary sinus air-fluid level. There is a left orbital floor deformity, possibly chronic. There is a right temporal scalp lesion, possibly related to avascular anomaly. IMPRESSION: No acute intracranial findings ACT 112: Negative or not required by law. Electronically signed by: Wilmer Green M.D. 09/06/2019 12:[address] CERVICAL SPINE FINDINGS: The visualized portions of the lung apices reveal no evidence of pneumothorax. The prevertebral soft tissues are normal. No fractures or subluxations are visualized. There are multilevel degenerative changes. There is prominent calcification the posterior longitudinal ligament at the T1-2 level with secondary spinal canal narrowing. IMPRESSION: No evidence of acute fracture or traumatic subluxation. ACT 112: Negative or not required by law. Electronically signed by: Wilmer Green M.D. 09/06/2019 12:56 PM ECG Additional Comments: EKG performed at 1105 reviewed and demonstrated atrial paced rhythm at 80/minute, no significant ST or T wave abnormalities. Code Status & VTE Plan Code Status Advanced directives and CODE STATUS discussed with patient. She does not have a living will. She does not wish to have resuscitation attempted in the event of a cardiopulmonary arrest. CODE STATUS, therefore, is DO NOT RESUSCITATE. VTE Prophylaxis Plan VTE Prophylaxis will be ordered: Yes
[2019-09-06] MEDS ORDERED: LORATADINE 10 MG TAB PO PRN (17:00)
[2019-09-06] MEDS ORDERED: GLUCOSE 40% GEL 15 GM TUBE PO PRN (17:30)
[2019-09-06] MEDS ORDERED: DEXTROSE 50% 50 ML SYRINGE IV PRN (17:30)
[2019-09-06] MEDS ORDERED: GLUCAGON FOR INJ 1 MG VIAL IM PRN (17:30)
[2019-09-06] MEDS ORDERED: CARBOHYDRATES FOR HYPOGLYCEMIA PO PRN (17:30)
[2019-09-06] MEDS ORDERED: GLUCOSE 10 TABS/TUBE PO PRN (17:30)
[2019-09-06] MEDS: lisinopriL 10 MG TAB PO SCH (17:58)
[2019-09-06] MEDS: INSULIN ASPART 100 UNITS/ML 3 ML PEN SC SCH ×2 (18:00→21:14)
[2019-09-06 18:37] LABS: Partial Thromboplastin Ratio 0.9; Partial Thromboplastin Time 26.5 Seconds (21.0-31.0)
[2019-09-06] MEDS: ENOXAPARIN INJ 40 MG/0.4 ML SYR SQ SCH (21:03)
[2019-09-06] MEDS: TRAZODONE HCL 100 MG TAB PO SCH (21:04)
[2019-09-06] MEDS: ATORVASTATIN 40 MG TAB PO SCH (21:04)
[2019-09-06] MEDS: OSELTAMIVIR PHOSPHATE SUSP 30 MG/5 ML UDP PO SCH (21:07)
[2019-09-06] MEDS: ACETAMINOPHEN 325 MG TAB PO PRN (22:04)
[2019-09-07] MEDS: PANTOprazole 40 MG TAB PO SCH (05:52)
[2019-09-07] MEDS: LEVOTHYROXINE SODIUM 125 MCG TABLET PO SCH (05:52)
[2019-09-07 08:21] LABS: Estimated Average Glucose 154 mg/dl
[2019-09-07 08:24] LABS: BUN Creatinine Ratio 10.9 (10-20); Calcium 8.5 mg/dl (8.5-10.1); Creatinine Clr Calc Pharmacy 68.5 ml/min; Est GFR (African American) 84.8; Est GFR (Non-African American) 73.1; Magnesium 1.8 mg/dl (1.8-2.4); Potassium 4.1 mmol/L (3.5-5.1)
[2019-09-07] MEDS: INSULIN ASPART 100 UNITS/ML 3 ML PEN SC SCH ×4 (08:58→21:23)
[2019-09-07] MEDS: lisinopriL 10 MG TAB PO SCH (09:07)
[2019-09-07] MEDS: SERTRALINE HCL 50 MG TABLET PO SCH (09:07)
[2019-09-07] MEDS: ASPIRIN 81 MG ECTAB PO SCH (09:08)
[2019-09-07] MEDS: OSELTAMIVIR PHOSPHATE SUSP 30 MG/5 ML UDP PO SCH (09:37)
--- NOTE | 2019-09-07 20:49 | Hospitalist Progress Note ---
Date of Service September 07, 2019 Assessment & Plan (1) Influenza: Cough for several days with generalized weakness and fall. Nasopharyngeal swab positive for influenza A using PCR. Continue oseltamivir and symptomatic management. (2) Fall: Possibly due to orthostasis or generalized weakness. Monitor for arrhythmias. PT/OT evaluations tomorrow. (3) Hypertension: Continue lisinopril. 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 Managed with metformin, sitagliptin, Basaglar at home. Random blood sugar in ED 138. Hemoglobin A1c 7.0. Hold oral agents during hospital stay. Lantus/NovoLog per protocol. FBS today = 140. (5) GERD (gastroesophageal reflux disease): Continue PPI. (6) CKD (chronic kidney disease), stage III: Serum creatinine today = 0.80. Follow. (7) Hypomagnesemia: Serum magnesium 1.4 in ED. Received replacement. Mg today 1.8. (8) Do not resuscitate status: Code status is DNR as discussed in admission H&P. (9) DVT prophylaxis: Subcutaneous enoxaparin. Ambulate. (10) Discharge planning issues: Discharge disposition to be determined after PT/OT evaluations. Family Medicine follow-up with Dr. Cole. Admission and Anticipated Discharge Date Admission Date: September 06, 2019 Subjective Recheck for multiple problems. Patient seen in their room around 1450. Feels better. Cough, wheezing, SOB improved. Still weak. Has not yet ambulated much. Review of Systems: Constitutional- no fever. Cardiac- no chest pain. Pulmonary- as noted above. GI- no nausea, vomiting, diarrhea, melena, hematochezia. - no urinary symptoms. Otherwise, as noted above. Physical Exam Constitutional: no acute distress Respiratory: no respiratory distress Auscultation: + rhonchi and + wheezes Cardiovascular: Rate/Rhythm: regular rate and regular rhythm Heart Sounds: + murmur (III/ sys murmur at base and LSB) Vessels: no JVD Extremities: no calf tenderness and no edema Gastrointestinal (Abdomen): normal bowel sounds, soft, nontender, no hepatosplenomegaly Skin: no rashes, warm and dry Psychiatric: Orientation: alert and oriented x 3 Results & Data ([facility]) Vital Signs (Past 12 Hours) Vital Signs Temp Pulse Pulse Resp BP BP Pulse Ox 09/07/19 19:53 36.7 C 96 H 18 149/77 H 97 09/07/19 15:27 37.3 C 67 18 120/76 98 09/07/19 15:15 63 Laboratory Results 09/07/19 07:34
[2019-09-07] MEDS: ATORVASTATIN 40 MG TAB PO SCH (21:19)
[2019-09-07] MEDS: ENOXAPARIN INJ 40 MG/0.4 ML SYR SQ SCH (21:19)
[2019-09-07] MEDS: TRAZODONE HCL 100 MG TAB PO SCH (21:20)
[2019-09-07] MEDS: OSELTAMIVIR PHOSPHATE 75 MG CAP PO SCH (21:20)
[2019-09-07] MEDS: ACETAMINOPHEN 325 MG TAB PO PRN (21:21)
--- NOTE | 2019-09-07 22:37 | Electrocardiogram Report ---
Test Reason : Blood Pressure : / mmHG Vent. Rate : 081 BPM Atrial Rate : 081 BPM P-R Int : 180 ms QRS Dur : 102 ms QT Int : 392 ms P-R-T Axes : 057 037 065 degrees QTc Int : 455 ms Poor data quality, interpretation may be adversely affected Atrial-paced rhythm Abnormal ECG When compared with ECG of 11-JUL-2019 12:35, No significant change was found Confirmed by Axel Levine ([id number]) on 09/07/2019 10:36:51 PM Referred By: REFERRED SELF Confirmed By:Axel Levine
[2019-09-08] MEDS: PANTOprazole 40 MG TAB PO SCH (06:27)
[2019-09-08] MEDS: LEVOTHYROXINE SODIUM 125 MCG TABLET PO SCH (06:27)
[2019-09-08] MEDS: SERTRALINE HCL 50 MG TABLET PO SCH (08:31)
[2019-09-08] MEDS: lisinopriL 10 MG TAB PO SCH (08:32)
[2019-09-08] MEDS: ASPIRIN 81 MG ECTAB PO SCH (08:32)
[2019-09-08] MEDS: OSELTAMIVIR PHOSPHATE 75 MG CAP PO SCH ×2 (08:32→21:31)
[2019-09-08] MEDS: INSULIN ASPART 100 UNITS/ML 3 ML PEN SC SCH ×4 (08:33→22:22)
--- NOTE | 2019-09-08 15:50 | Hospitalist Progress Note ---
Date of Service September 08, 2019 Assessment & Plan (1) Influenza: Influenza A Presented with cough for several days with generalized weakness and fall. Nasopharyngeal swab positive for influenza A using PCR. Respiratory symptoms has resolved, no cough, no shortness of breath Patient started on Tamiflu 75 mg p.o. twice daily, first days of treatment 09/07/2019 at 2100 Needs total 5 days of treatment (2) Fall: Baseline dementia with increased forgetfulness/ambulatory dysfunction/history of recurrent falls Lives in independent apartment Daily evaluation requested (3) Hypertension: Continue lisinopril. 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 Managed with metformin, sitagliptin, Basaglar at home. Hemoglobin A1c 7.0. Hold oral agents during hospital stay. Lantus/NovoLog per protocol. (5) GERD (gastroesophageal reflux disease): Continue PPI. (6) CKD (chronic kidney disease), stage III: Serum creatinine = 0.80./At baseline Follow. (7) Hypomagnesemia: Corrected (8) Do not resuscitate status: Code status is DNR (9) DVT prophylaxis: Subcutaneous enoxaparin. Ambulate. (10) Discharge planning issues: Patient lives in an independent senior apartment Uses walker and cane to ambulate Patient is active with [facility], has caregivers 2-3 days a week, and home health visiting nurse. PT OT evaluation requested-appreciate input Recommends return home to established caregiver will need continued home health and home PT Family Medicine follow-up with Dr. Cole. Admission and Anticipated Discharge Date Admission Date: September 06, 2019 Subjective Patient reports of feeling much better today, Does not have any cough, no fever or chills Appetite fair Getting out of bed walking to the bathroom no gait disturbance noted, No complaint of fatigue body ache, no headache Review of Systems Review of Systems: All systems reviewed & are unremarkable except as noted in HPI & below Constitutional: no fever, no chills, no body aches, no fatigue and no malaise Eyes: as per Subjective / HPI Respiratory: no cough, no dyspnea and no wheezing Cardiovascular: no chest pain, no dyspnea, no orthopnea, no palpitations, no syncope and no edema Physical Exam Constitutional: WD/WN, vitals as above no acute distress Eyes: PERRL, conjunctivae normal, anicteric sclerae ENMT: external ear and nose normal, oropharynx normal Neck: trachea midline, no thyromegaly Respiratory: no cough Auscultation: + diminished lung sounds; no crackles, no rales, no rhonchi and no wheezes Cardiovascular: RRR, no murmur, no edema Gastrointestinal (Abdomen): Inspection/Auscultation: normal bowel sounds Percussion/Palpation: abdomen soft; abdomen nontender Musculoskeletal: Head/Neck/Chest: normocephalic and head atraumatic Extremities: extremities normal to inspection Gait: normal gait Skin: no rashes, warm and dry Neurologic: PERRL, EOMI, accommodation nl, no face palsy, no dysarthria Psychiatric: A+Ox3, euthymic affect Results & Data ([facility]) Vital Signs (Past 12 Hours) Vital Signs Temp Pulse Pulse Resp BP BP Pulse Ox 09/08/19 15:38 36.9 C 68 16 147/76 H 98 09/08/19 11:36 37.0 C 63 18 109/67 94 09/08/19 08:00 60 09/08/19 07:20 36.8 C 67 18 142/82 H 99 09/08/19 05:32 36.7 C 78 20 122/74 99 Diagnostic Findings X-RAY CHEST PORTABLE FINDINGS: The cardiac and mediastinal contours remain stable. There is a left subclavian dual-chamber central venous pacemaker. There is no failure. There is no focal pulmonary consolidation. There are no pleural effusions. There are postsurgical changes of a right shoulder arthroplasty. IMPRESSION: No active disease in the chest. ACT 112: Negative or not required by law. Electronically signed by: Wilmer Green M.D. 09/06/2019 1:36 PM X-RAY PELVIS DISCUSSION: No acute fractures or dislocations are visualized. The bones are mildly the pubic. There is no SI joint diastases. There is no symphysis diastases. IMPRESSION: No fractures or dislocations identified. ACT 112: Negative or not required by law. Electronically signed by: Wilmer Green M.D. 09/06/2019 1:[address] HEAD FINDINGS: No intra or extra-axial mass lesions are visualized. There is no CT evidence of acute cortical infarction. There is no evidence of midline shift. There is no acute hemorrhage. No calvarial fractures are visualized. There are patchy white matter hypodensities likely on a small vessel basis. There is no evidence of pathologic ventricular dilatation. There is a left maxillary sinus air-fluid level. There is a left orbital floor deformity, possibly chronic. There is a right temporal scalp lesion, possibly related to avascular anomaly. IMPRESSION: No acute intracranial findings ACT 112: Negative or not required by law. Electronically signed by: Wilmer Green M.D. 09/06/2019 12:[address] CERVICAL SPINE FINDINGS: The visualized portions of the lung apices reveal no evidence of pneumothorax. The prevertebral soft tissues are normal. No fractures or subluxations are visualized. There are multilevel degenerative changes. There is prominent calcification the posterior longitudinal ligament at the T1-2 level with secondary spinal canal narrowing. IMPRESSION: No evidence of acute fracture or traumatic subluxation. ACT 112: Negative or not required by law. Electronically signed by: Wilmer Green M.D. 09/06/2019 12:56 PM
[2019-09-08] MEDS: ENOXAPARIN INJ 40 MG/0.4 ML SYR SQ SCH (21:29)
[2019-09-08] MEDS: TRAZODONE HCL 100 MG TAB PO SCH (21:31)
[2019-09-08] MEDS: ATORVASTATIN 40 MG TAB PO SCH (21:31)
[2019-09-09 06:22] LABS: Creatinine Clr Calc Pharmacy 56.5 ml/min; Est GFR (African American) 67.2; Est GFR (Non-African American) 57.9
[2019-09-09] MEDS: PANTOprazole 40 MG TAB PO SCH (06:32)
[2019-09-09] MEDS: LEVOTHYROXINE SODIUM 125 MCG TABLET PO SCH (06:32)
[2019-09-09] MEDS: ASPIRIN 81 MG ECTAB PO SCH (09:01)
[2019-09-09] MEDS: OSELTAMIVIR PHOSPHATE 75 MG CAP PO SCH (09:02)
[2019-09-09] MEDS: SERTRALINE HCL 50 MG TABLET PO SCH (09:02)
[2019-09-09] MEDS: lisinopriL 10 MG TAB PO SCH (09:02)
[2019-09-09] MEDS: INSULIN ASPART 100 UNITS/ML 3 ML PEN SC SCH ×2 (09:06→12:44)
--- NOTE | 2019-09-09 17:10 | Hospitalist Progress Note ---
Date of Service September 09, 2019 Assessment & Plan (1) Influenza: Influenza A Presented with cough for several days with generalized weakness and fall. Nasopharyngeal swab positive for influenza A using PCR. Respiratory symptoms has resolved, no cough, no shortness of breath Patient started on Tamiflu 75 mg p.o. twice daily, first days of treatment 09/07/2019 at 2100 Days of treatment #2 Needs total 5 days of treatment Patient is discharged on 3 more days of p.o. Tamiflu (2) Fall: Baseline dementia with increased forgetfulness/ambulatory dysfunction/history of recurrent falls Lives in independent apartment Mental status back to baseline Has caregivers 35 times a week Has home health visiting nurse Patient also has a life alert PT OT evaluation appreciated, recommend to return home with prior support Counseling provided to use walker assistive device to prevent fall (3) Hypertension: Continue lisinopril. 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 Managed with metformin, sitagliptin, Basaglar at home. Hemoglobin A1c 7.0. Oral antidiabetic medications resumed on discharge (5) GERD (gastroesophageal reflux disease): Continue PPI. (6) CKD (chronic kidney disease), stage III: Serum creatinine = 0.80./At baseline Follow. (7) Hypomagnesemia: Corrected (8) Do not resuscitate status: Code status is DNR (9) DVT prophylaxis: Subcutaneous enoxaparin. Ambulate. (10) Discharge planning issues: Patient lives in an independent senior apartment Uses walker and cane to ambulate Patient is active with [facility], has caregivers 2-3 days a week, and home health visiting nurse. PT OT evaluation requested-appreciate input Recommends return home to established caregiver Stable to be discharged home today Family Medicine follow-up with Dr. Cole. Admission and Anticipated Discharge Date Admission Date: September 06, 2019 Subjective Patient sitting up on chair, no cough no shortness of breath, Feels much better, no fever or chills Stable to be discharged home today Review of Systems Review of Systems: All systems reviewed & are unremarkable except as noted in HPI & below Constitutional: no fever, no chills and no fatigue Respiratory: no cough and no wheezing Physical Exam Constitutional: WD/WN, vitals as above no acute distress Eyes: PERRL, conjunctivae normal, anicteric sclerae ENMT: external ear and nose normal, oropharynx normal Neck: trachea midline, no thyromegaly Respiratory: no cough Auscultation: no crackles, no rales, no rhonchi and no wheezes Cardiovascular: RRR, no murmur, no edema Gastrointestinal (Abdomen): Inspection/Auscultation: normal bowel sounds Percussion/Palpation: abdomen soft; abdomen nontender Musculoskeletal: Head/Neck/Chest: normocephalic and head atraumatic Extremities: extremities normal to inspection Gait: normal gait Skin: no rashes, warm and dry Neurologic: PERRL, EOMI, accommodation nl, no face palsy, no dysarthria Psychiatric: A+Ox3, euthymic affect Results & Data ([facility]) Vital Signs (Past 12 Hours) Vital Signs Temp Pulse Resp BP BP Pulse Ox 09/09/19 16:20 36.7 C 87 20 113/71 156/81 H 99 09/09/19 15:16 36.7 C 87 20 113/71 99 09/09/19 06:41 36.6 C 88 18 156/81 H 98
--- NOTE | 2019-09-09 17:11 | Discharge Summary ---
Date of Service September 09, 2019 Admission HPI Per Admitting Provider 73-year-old female followed by Dr. Cole. History of hypertension, asthma, diabetes, and other problems noted below. Became ill a few days ago with cough and rhinorrhea. No fever. No pharyngitis. Mild frontal headache. Last evening she fell in the bathroom around 2200. Patient states that she fell after bending over and standing up. No apparent loss of consciousness, seizure activity, focal neurologic symptoms, chest pain, palpitations, etc. Injured her neck and back when she fell. She called out for neighbors in her apartment, but nobody responded. Remained on the floor all night long. Neighbors responded to her calls in the morning and summoned EMS for assistance. She was brought to the ED for evaluation. Principal Diagnosis Influenza A Discharge Exam Constitutional WD/WN, vitals as above no acute distress Eyes PERRL, conjunctivae normal, anicteric sclerae ENMT external ear and nose normal, oropharynx normal Neck trachea midline, no thyromegaly Respiratory no cough Auscultation: no crackles, no rales, no rhonchi and no wheezes Cardiovascular RRR, no murmur, no edema Gastrointestinal (Abdomen) Inspection/Auscultation: normal bowel sounds Percussion/Palpation: abdomen soft; abdomen nontender Musculoskeletal Head/Neck/Chest: normocephalic and head atraumatic Extremities: extremities normal to inspection Gait: normal gait Skin no rashes, warm and dry Neurologic PERRL, EOMI, accommodation nl, no face palsy, no dysarthria Psychiatric A+Ox3, euthymic affect Discharge Data Allergies Allergy/AdvReac Type Severity Reaction Status Date / Time No Known Allergies Allergy Unknown Verified 09/06/19 11:14 Consultations 09/06/19 13:52 ED Decision to Admit Stat Ordered Studies 09/06/19 11:42 CT cervical spine wo con Stat CT head/brain wo con Stat Hospital Course (1) Influenza: Influenza A Presented with cough for several days with generalized weakness and fall. Nasopharyngeal swab positive for influenza A using PCR. Respiratory symptoms has resolved, no cough, no shortness of breath Patient started on Tamiflu 75 mg p.o. twice daily, first days of treatment 09/07/2019 at 2100 Days of treatment #2 Needs total 5 days of treatment Patient is discharged on 3 more days of p.o. Tamiflu (2) Fall: Baseline dementia with increased forgetfulness/ambulatory dysfunction/history of recurrent falls Lives in independent apartment Mental status back to baseline Has caregivers 35 times a week Has home health visiting nurse Patient also has a life alert PT OT evaluation appreciated, recommend to return home with prior support Counseling provided to use walker assistive device to prevent fall (3) Hypertension: Continue lisinopril. 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 Managed with metformin, sitagliptin, Basaglar at home. Hemoglobin A1c 7.0. Oral antidiabetic medications resumed on discharge (5) GERD (gastroesophageal reflux disease): Continue PPI. (6) CKD (chronic kidney disease), stage III: Serum creatinine = 0.80./At baseline Follow. (7) Hypomagnesemia: Corrected (8) Do not resuscitate status: Code status is DNR (9) DVT prophylaxis: Subcutaneous enoxaparin. Ambulate. (10) Discharge planning issues: Patient lives in an independent senior apartment Uses walker and cane to ambulate Patient is active with [facility], has caregivers 2-3 days a week, and home health visiting nurse. PT OT evaluation requested-appreciate input Recommends return home to established caregiver Stable to be discharged home today Family Medicine follow-up with Dr. Cole. Total Time Total Time Spent Total Time Spent (In Minutes): 40 mins Discharge Plan Discharge Items Patient Disposition: Home - Home Health Services Reason For Visit: INFLUENZA A Discharge Diagnosis: Influenza A Activity: Resume your previous activity Non-emergency contact: Primary Care Provider Call non-emergency contact if: you have any medication questions Follow-up/Referrals: Carmelo Cole MD [Primary Care Provider] - 09/14/19 11:05 am Diet: Heart Healthy Addtl Attending Provider Instructions: Follow-up with family physician Please observe fall precaution, use walker and cane for support Continue take Tamiflu 1 tablet twice daily for 3 more days-for influenza A infection Pending Studies at Discharge: No Stand-Alone Forms: GPX Software, Smoking Cessation Medications and DC Order Prescriptions: New oseltamivir [Tamiflu] 75 mg Capsule 75 mg PO BID Qty: 6 RF: 0 Continued trazodone 100 mg tablet 100 mg PO HS RF: 0 atorvastatin 80 mg tablet 80 mg PO HS RF: 0 sertraline 100 mg tablet 150 mg PO QAM RF: 0 metformin 1,000 mg tablet 1,000 mg PO BID RF: 0 lisinopril 10 mg tablet 10 mg PO QAM RF: 0 omeprazole 20 mg capsule,delayed release(DR/EC) 20 mg PO DAILYBB RF: 0 Januvia 100 mg tablet 100 mg PO QAM RF: 0 Basaglar KwikPen U-100 Insulin 100 unit/mL (3 mL) insulin pen 24 unit subcut QAM RF: 0 aspirin 81 mg Tablet,Delayed Release (Dr/Ec) 81 mg PO QAM Qty: 0 RF: 0 levothyroxine 125 mcg tablet 125 mcg PO QAM RF: 0 loratadine 10 mg Tablet 10 mg PO DAILY PRN (Reason: Allergy Symptoms) RF: 0 acetaminophen [Mapap (acetaminophen)] 325 mg Tablet 650 mg PO Q6H PRN (Reason: pain) Qty: 30 RF: 0 Discharge Orders: Discharge Order (Routine); Ordered 09/09/19 Ordered By: Whitley Ramos/Other Patient Handouts: Falls Prevent Home, Falls Risks Prevent, Falls Prevent Safe Cane Walker, Falls Prevent Prepare What Do, Falls Preventing Admission Data Admit Date/Time: 09/06/19 14:15 Attending Provider: Whitley Gatica Admit Provider: David Stanton Primary Care Provider: Carmelo Cole Other Providers: aDvid Stanton Other Interventions: Discharge Summary Assessment (RN) Last Done: 09/09/19 16:20
== END 2019-09-09 17:00 | disposition home or self-care (01) | DRG 195 ==
LOC: ED 10:48 → SUATTDRO 14:15 → 2N 14:15 → 3W 09-08 18:27